=== PATIENT | male | born 1960 | race Caucasian/White ===

== ENCOUNTER 2017-01-03 10:59 | Inpatient (IN) ==
--- NOTE | 2017-01-03 11:29 | PROVIDER DOCUMENTATION ---
HPI-Neurological Disorder - General Source: family (Dr. Son spoke with sister via phone), EMS - History of Present Illness-Neuro Onset/Duration: reports: just prior to arrival Context: reports: found unresponsive by family Character of Altered Mental Status: reports: disoriented, confused Cognitive Baseline: alert but disoriented - Seizure First time to have a seizure?: No (Sister states he has seizure disorder) Witnessed seizure?: Yes Episode Frequency: other (unknown) <Nayeli Carter - Last Filed: 01/03/17 11:45> - General Source: patient, family, EMS notes reviewed Unable to obtain history due to:: altered - History of Present Illness-Neuro Onset/Duration: reports: unsure Timing: reports: gone now Context: reports: seizure activity Character of Altered Mental Status: reports: disoriented, confused, trouble concentrating Any recent trauma/injury?: reports: none New weakness or altered sensation location:: reports: none Cognitive Baseline: alert but confused Gait Baseline: walks without assistance Associated Symptoms: reports: short of breath (from COPD), loss of consciousness Similar Symptoms Previously?: Yes (twice in the last 3 months as per his sister. ) Recently seen or treated by another doctor?: No - Seizure First time to have a seizure?: No Witnessed seizure?: Yes Episode details: reports: unknown duration Episode Frequency: occasional episodes Status Epilepticus: No Preceding symptoms/context:: recent alcohol or drug use (???) Character of Seizure: reports: lost consciousness, generalized shaking all over Post-ictal Symptoms: reports: confusion, lost power/feeling, speech difficulty Seizure related injury: none <John Son - Last Filed: 01/03/17 15:25> - General Chief Complaint: Seizure Stated Complaint: possible seizure Time Seen by Provider: 01/03/17 11:08 Allergies/Adverse Reactions: Patient Allergies Allergy/AdvReac Type Severity Reaction Status Date / Time No Known Allergies Allergy Verified 01/03/17 11:25 Home Medications: Home Medication List Medication Instructions Recorded Confirmed Last Taken Type Albuterol Sulfate [Proair Hfa] 8.5 gm IH PRN PRN 01/03/17 01/03/17 Unknown History Paroxetine HCl [Paxil] 20 mg PO DAILY 01/03/17 01/03/17 Unknown History Tramadol HCl [Ultram] 50 mg PO TID PRN 01/03/17 01/03/17 Unknown History Umeclidinium/Vilanterol [Anoro 1 puff INH RTDAILY 01/03/17 01/03/17 Unknown History Ellipta 62.5-25 Mcg INH] - History of Present Illness-Neuro Nature of Presenting Problem: 56 yo male presents to the ER via EMS for possible seizure. Pt was seen by witnesses convulsing. Pt denies any past medical problems/history. Pt does not know where he lives but does know that he is in the hospital. (Nayeli Carter) 56 y/o M brought by EMS after he had a seizure episode at his home. [place] stated that he saw him convulsing and called the ambulance. Patient does not recall anything and is not quite alert. I called his sister who stated that he experienced a couple of seizure episodes before and the first one was 3 months ago. He never seen a doctor for it and also he is known to be non-compliant with his medication or PCP follow-ups. (John Son) Review of Systems - Adult - REVIEW OF SYSTEMS - ADULT Constitutional: denies: chills, fever Neurological: reports: seizure. denies: dizziness/vertigo <Nayeli Carter - Last Filed: 01/03/17 11:45> Past History - Adult - PAST MEDICAL HISTORY-ADULT Review of Records: reports: Nursing Assessment Review, Medications Reviewed Cardiovascular: reports: HTN Respiratory: reports: COPD Musculoskeletal: reports: other fractures (03/19/16 - 5th metacarpal, L rib fractures) Psychiatric: reports: depression, other (alcoholism) - PRIOR SURGERIES/PROCEDURES Surgical/Procedure History: reports: orthopedic (extremity), joint replacement - PRIOR HOSPITALIZATIONS Prior Hospitalizations: reports: for other non-related - IMMUNIZATION STATUS Childhood Immunizations: See Nurse Assessment Flu Vaccine: See Nurse Assessment <Nayeli Carter - Last Filed: 01/03/17 11:45> - PAST MEDICAL HISTORY-ADULT Major Childhood Illnesses: reports: denies history Cardiovascular: reports: denies history Respiratory: reports: COPD Gastrointestinal: reports: denies history Genitourinary: reports: denies history Musculoskeletal: reports: denies history Neurological: reports: denies history Psychiatric: reports: denies history Endocrine/Immune: reports: denies history <John Son - Last Filed: 01/03/17 15:25> Physical Exam- Neurological - Physical Exam-Neuro General Appearance: alert, no apparent distress, slow to respond Eye Exam: bilateral eye: PERRL, EOMI HENMT: normocephalic/atraumatic Head Injury: no evidence of injury Neck: supple Respiratory: lungs clear Cardiovascular: regular rate, rhythm Abdominal Exam: normal bowel sounds, soft 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 negative: facial asymmetry Coordination/Gait: other Motor/Sensory: no motor deficit, no sensory deficit Neurologic: grossly normal Integumentary: negative: cyanosis Psych/Mental Status: disoriented x 3 - Glascow Coma Scale Best Eye Response: (4) open spontaneously Best Verbal Response: (4) confused conversation Best Motor Response: (6) obeys commands <Nayeli Carter - Last Filed: 01/03/17 11:45> - Physical Exam-Neuro Initial Vital Signs Reviewed: Yes General Appearance: alert, moderate distress, slow to respond Eye Exam: bilateral eye: PERRL, EOMI HENMT: normocephalic/atraumatic Head Injury: no evidence of injury Neck: supple Respiratory: lungs clear Cardiovascular: normal peripheral pulses, regular rate, rhythm Abdominal Exam: normal bowel sounds, soft 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 Exam: negative: facial asymmetry Coordination/Gait: other Motor/Sensory: no motor deficit, no sensory deficit Neurologic: grossly normal Psych/Mental Status: disoriented x 3 - Glascow Coma Scale Best Eye Response: (4) open spontaneously Best Verbal Response: (4) confused conversation Best Motor Response: (6) obeys commands Total Glascow Score: 14 <John Son - Last Filed: 01/03/17 15:25> Departure <Nayeli Carter - Last Filed: 01/03/17 11:45> - Departure Time of Disposition Order: 15:20 Certified Medical Emergency: Emergent <John Son - Last Filed: 01/03/17 15:25> - Departure DIAGNOSIS: Seizure, Acute hyponatremia Disposition: ADMITTED INPATIENT 09 Condition: Fair Referrals: None,PCP [Primary Care Provider] - Attestation - Scribe Verification/Attestation Scribe:: Nayeli Carter Acting as Scribe for:: John Son Scribe documention review:: This chart was documented by a scribe and accurately reflects the service the provider performed and the decisions made by the provider. <Nayeli Carter - Last Filed: 01/03/17 11:45> Physician Attestation
[2017-01-03 12:10] LABS: MANUAL DIFF NEEDED? NO
[2017-01-03 12:31] LABS: AGAP 13; ALBUMIN 3.3 g/dL (3.5-5.0); ALKALINE PHOSPHATASE 172 U/L (32-122); BUN 6 mg/dL (8-22); CALCIUM 8.1 mg/dL (8.8-10.2); CHLORIDE 92 mmol/L (98-107); COSMO 260; GOT 106 U/L (10-34); GPT 42 U/L (10-44); MAGNESIUM 1.7 mg/dL (1.5-2.7); POTASSIUM 4.1 mmol/L (3.5-5.1); SODIUM 128 mmol/L (136-145); TCO2 23 mmol/L (25-35); TOTAL BILIRUBIN 1.82 mg/dL (0.20-1.00); TOTAL PROTEIN 8.1 g/dL (6.3-8.3)
[2017-01-03 12:46] LABS: BASO% 0.5 % (0.0-0.8); HEMATOCRIT 38.8 % (42.0-52.0); HEMOGLOBIN 13.5 g/dL (14.0-18.0); LYMPH# 0.56 X1000 (1.2-3.4); LYMPH% 7.4 % (20.5-51.1); MCH 34.4 PG (27-31); MCHC 34.8 g/dL (33-37); MONO% 15.8 % (1.7-9.3); MPV 10.5 FL (7.4-10.4); NEUT% 76.3 % (42.2-75.2); PLT 96 X1000 (130-400); RBC 3.92 XMIL (4.7-6.1)
[2017-01-03] MEDS ORDERED: NS 1,000 ML IV ONE (12:59)
[2017-01-03] MEDS ORDERED: ATIVAN IM ONE (13:00)
[2017-01-03 13:04] LABS: ACETAMINOPHEN < 1.2 ug/mL (10-30)
[2017-01-03 13:37] LABS: URINE CULTURE NEEDED? NO; URINE MICRO REVIEW NEEDED? NO; URINE SOURCE CLEAN CATCH
[2017-01-03 13:41] LABS: BILIRUBIN URINE NEGATIVE (NEGATIVE); BLOOD URINE NEGATIVE (NEGATIVE); COLOR YELLOW; GLUCOSE URINE NEGATIVE (NEGATIVE); LEUKOCYTES URINE NEGATIVE (NEGATIVE); NITRITE URINE NEGATIVE (NEGATIVE); PH URINE 7.5; PROTEIN URINE 30 mg/dL (NEGATIVE); SP GRAVITY URINE 1.019; TURBIDITY URINE CLEAR (CLEAR); UROBILINOGEN URINE 4 mg/dL (NORMAL)
[2017-01-03 13:42] LABS: UR EPITHELIAL CELLS <10 /HPF (<10); URINE BACTERIA NEGATIVE /HPF; URINE RBC <10 /HPF (<10); URINE WBC <10 /HPF (<10)
[2017-01-03 14:14] LABS: UR AMPHETAMINES QUAL NONE DETECTED (NONE DETECT); UR BARBITUATES QUAL NONE DETECTED (NONE DETECT); UR BENZODIAZEPIN QUAL NONE DETECTED (NONE DETECT); UR CANNABINOIDS QUAL PRESUMPTIVE POSITIVE (NONE DETECT); UR COCAINE QUAL NONE DETECTED (NONE DETECT); UR METHADONE QUAL NONE DETECTED (NONE DETECT); UR OPIATES QUAL NONE DETECTED (NONE DETECT); UR OXYCODONE QUAL NONE DETECTED (NONE DETECT); UR PCP QUAL NONE DETECTED (NONE DETECT)
[2017-01-03] MEDS ORDERED: ZOFRAN IV PRN (16:37)
[2017-01-03] MEDS ORDERED: SOLU-MEDROL ONE (16:56)
[2017-01-03] MEDS ORDERED: PROTONIX ONE (16:59)
[2017-01-03] MEDS ORDERED: SODIUM PHOSPHATE 40 MMOL in NS 250 ML IV ONE (17:08)
[2017-01-03] MEDS: SOLU-MEDROL IV SCH (17:16)
[2017-01-03] MEDS: LIBRIUM PO SCH (17:16)
[2017-01-03] MEDS: PROTONIX IV SCH (17:17)
[2017-01-03] MEDS: NS 1,000 ML IV SCH (17:17)
--- NOTE | 2017-01-03 17:22 | HISTORY AND PHYSICAL ---
PRIMARY CARE PROVIDER: Farzana Martinez. CHIEF COMPLAINT: Seizures. HISTORY OF PRESENT ILLNESS: Mr. Reymundo Mueller is a 56-year-old ill-appearing male. He is in no acute distress but has a past medical history of COPD, seizure disorder, hypertension, noncompliance and alcohol abuse. Apparently he lives with a roommate and his roommate was awoken by the dog and Mr. Mueller was found seizing and unresponsive 911 called and he was brought to ER. Head CT has been performed and is apparently negative. Laboratory data electrolyte bautista sodium was 128, magnesium 1.7, elevated total bilirubin at 1.82, urine drug screen was positive for cannabinoids but negative for alcohol. Patient states his last time he drank was about 2 days ago. He normally drinks about 4 beers per day. Other complaints he states that he has been having hot, cold flashes, shortness of breath, chest pains and coughing up green phlegm although his white blood cell count was normal at 6000 and he is afebrile. When asked if he remembered what happened he states that he did not, he said everything went blank and then he woke up here. Currently all of his vital signs are stable but there is some auditory crackles which is suggestive of aspiration so he is at high risk for aspiration pneumonia given his history of COPD also will admit to [facility] for monitoring of seizures and risk of respiratory failure given he has likely had aspiration with COPD. PAST MEDICAL HISTORY: COPD, seizure disorder, hypertension. SURGICAL HISTORY: Bilateral knee surgery and ribs repaired but states that he has had several surgeries he just cannot remember them. SOCIAL HISTORY: States he quit smoking a year ago, drinks daily and drinks 4 beers daily with the last being 2-3 days. Denies illicit drug use but is positive for cannabinoids. Lives with a friend. Is disabled. FAMILY HISTORY: Noncontributory. ALLERGIES: No known drug allergies. HOME MEDICATIONS: Albuterol sulfate inhaled as needed, Ultram 50 mg p.o. t.i.d. p.r.n., Anoro Ellipta inhaler daily, Paxil 20 mg p.o. daily. REVIEW OF SYSTEMS: Fourteen point review of systems were complete and all were negative except for those mentioned above HPI. LABORATORY DATA: White blood cells 7000, hemoglobin 13, hematocrit 38, platelet count 96,000. Sodium 128, potassium 4.1, BUN 6, creatinine 0.6, glucose 188, calcium 8.1, magnesium 1.7, total bilirubin is 1.82, AST 106, ALT 42, albumin 3.3. Urinalysis 30 protein, trace ketones, 4 urobilinogen otherwise negative. Urine drug screen less than 3 salicylates, less than 1.2 on acetaminophen, positive cannabinoids and 0 alcohol. IMAGING: Chest x-ray has not been fully resulted but upon viewing does not appear to have any signs of infiltrates or effusion. Will follow up with full report. CT of the head on preliminary report stable brain is the preliminary. There has been an order for a CT of the thorax without contrast which has not been performed yet to follow up for aspiration pneumonia. PHYSICAL EXAMINATION: VITAL SIGNS: Temperature is 98.0 degrees, heart rate 91, respiratory rate 18, blood pressure 139/89, O2 saturation 97% on 2 L, 5 feet 11 inches tall, 155 pounds, BMI 21.6. GENERAL: Mr. Mueller is a 56-year-old ill-appearing much older than his stated age male who is unkept. He is in no acute distress but has audible crackles and is able to answer most questions appropriately at this point, no signs of significant postictal. HEENT: Atraumatic, normocephalic. Pupils are equal and reactive. Extraocular movements were intact. Mucous membranes are dry. NECK: No JVD or carotid bruits noted. CARDIOVASCULAR: S1, S2. Regular rate and rhythm. No rubs, gallops, murmurs. PULMONARY: Crackles throughout anterior posteriorly and audibly without stethoscope currently on 2 L nasal cannula. No signs of work of breathing or accessory muscle use this time. GI: Soft, nontender, nondistended. Positive bowel sounds x4. EXTREMITIES: No edema noted, +2 dorsalis and radial pulses. NEURO: He is oriented x3. Followed commands. Moves all extremities. No signs of significant postictal at this time. SKIN: Warm, dry, intact. ASSESSMENT AND PLAN: 1. Seizure disorder with last seizure he stated was a year ago was found having convulsions by his roommate and was unresponsive. He received Ativan here, intravenous fluid hydration. Sodium levels mildly low so will do normal saline IV fluids. Will do seizure precautions, send him to [facility]. 2. Chronic obstructive pulmonary disease with mild exacerbation. Do respiratory treatments and IV steroids and pulmonary toilet. 3. High-risk aspiration pneumonia. He has audible crackles without the stethoscope and crackles throughout lungs anterior posteriorly currently on 2 L. No accessory muscle use or work of breathing at this time so will go ahead and start IV Zosyn prophylactically and follow up with a chest CT. He has had complaints of chills, hot flashes and green phlegm that he has been coughing up although white blood cell count is normal. 4. Remote tobacco abuse. 5. Alcohol abuse. Will monitor for DTs, Librium 50 mg p.o. t.i.d., Ativan 1 mg q.2 hours p.r.n. which will also help with seizure risk and thymine q.24 hours. 6. Hyperbilirubinemia with transaminitis could be secondary to dehydration and alcohol abuse. If it is chronic will not improve with intravenous fluid hydration but past lab showed that they were normal in 2016 so should improve with intravenous fluid hydration. 7. Deep venous thrombosis prophylaxis. SCDs. 8. Gastrointestinal prophylaxis. Proton pump inhibitor. Dictated by WADE Nunes for Rxe Hess MD
[2017-01-03] MEDS: THIAMINE 100 MG in NS 50 ML IV SCH (17:58)
[2017-01-03] MEDS ORDERED: DUONEB (A & A) ONE (18:57)
[2017-01-03] MEDS: DUONEB (A & A) INH SCH ×2 (19:00→23:19)
--- NOTE | 2017-01-03 20:36 | Diag Imaging Result Document ---
PROCEDURE NAME: HEAD W/O CONTRAST - 01/03/2017 CT HEAD WITHOUT CONTRAST: COMPARISON: 06/19/2014. FINDINGS: There is stable diffuse brain atrophy. There is no discrete intracranial mass, mass effect, or intracranial hemorrhage. There is no evidence of acute infarct given the limited sensitivity of CT versus MRI. Surrounding soft tissues and bony structures are essentially unremarkable. IMPRESSION: Stable atrophy but no evidence of acute intracranial pathology.
[2017-01-03] MEDS ORDERED: FLUZONE QUAD 2016-2017 SYRINGE IM ONE (21:13)
--- NOTE | 2017-01-03 21:15 | Diag Imaging Result Document ---
PROCEDURE NAME: CHEST-2 VIEWS - 01/03/2017 SEATED AP AND LATERAL RADIOGRAPH OF THE CHEST: COMPARISON: 06/04/2016. FINDINGS: Lungs appear hyperinflated, stable. There are stable linear fibrotic changes at the lower lung zones bilaterally. No new consolidations are appreciated. There is no definite pleural fluid collection. There are several healed rib fractures bilaterally. Cardiac silhouette is essentially unremarkable. IMPRESSION: Stable COPD and fibrotic changes. No definite acute pathology by plain radiograph.
[2017-01-03] MEDS ORDERED: PNEUMOVAX 23 IM ONE (22:13)
[2017-01-03] MEDS: MORPHINE IV PRN (23:32)
[2017-01-04] MEDS: SOLU-MEDROL IV SCH ×2 (03:43→16:05)
[2017-01-04] MEDS: NS 1,000 ML IV SCH ×6 (03:44→20:30)
[2017-01-04] MEDS: DUONEB (A & A) INH SCH ×6 (03:50→23:09)
[2017-01-04 05:35] LABS: MANUAL DIFF NEEDED? NO
[2017-01-04 05:43] LABS: BASO% 0.4 % (0.0-0.8); HEMOGLOBIN 12.3 g/dL (14.0-18.0); LYMPH# 1.03 X1000 (1.2-3.4); LYMPH% 20.2 % (20.5-51.1); MCH 33.7 PG (27-31); MCHC 33.2 g/dL (33-37); MCV 101.4 FL (81-99); MONO% 15.7 % (1.7-9.3); MPV 10.9 FL (7.4-10.4); NEUT% 63.7 % (42.2-75.2); PLT 78 X1000 (130-400); RBC 3.65 XMIL (4.7-6.1)
[2017-01-04 05:54] LABS: AGAP 13; ALKALINE PHOSPHATASE 148 U/L (32-122); BUN 8 mg/dL (8-22); CALCIUM 7.9 mg/dL (8.8-10.2); CHLORIDE 99 mmol/L (98-107); COSMO 269; GOT 76 U/L (10-34); GPT 34 U/L (10-44); MAGNESIUM 1.9 mg/dL (1.5-2.7); POTASSIUM 3.5 mmol/L (3.5-5.1); SODIUM 135 mmol/L (136-145); TCO2 23 mmol/L (25-35); TOTAL BILIRUBIN 1.96 mg/dL (0.20-1.00); TOTAL PROTEIN 7.3 g/dL (6.3-8.3)
[2017-01-04] MEDS: ANORO ELLIPTA 62.5-25 MCG INH INH SCH (07:43)
[2017-01-04] MEDS: LIBRIUM PO SCH ×3 (08:37→16:05)
[2017-01-04] MEDS: PAXIL PO SCH (08:37)
[2017-01-04] MEDS: ZOSYN 3.375 GM/NS 50 ML IV SCH ×3 (09:36→20:29)
[2017-01-04] MEDS: ATIVAN IV PRN ×3 (09:36→23:16)
[2017-01-04] MEDS ORDERED: LACTULOSE PO ONE (11:40)
--- NOTE | 2017-01-04 11:42 | Diag Imaging Result Document ---
PROCEDURE NAME: US ABDOMEN-COMPLETE - 01/04/2017 COMPLETE ABDOMINAL ULTRASOUND: COMPARISON: None available. FINDINGS: The gallbladder appears grossly normal with no stones, wall thickening, or pericholecystic fluid. The common bile duct is normal in diameter. The liver is prominent and is diffusely echogenic indicating hepatic steatosis. No well-defined hepatic mass is identified. Portal venous flow is hepatopetal. The pancreas is obscured by bowel gas. There are a few shadowing echogenic foci in the spleen suggesting splenic granulomata. The spleen is unremarkable, otherwise. The aorta and IVC are obscured by bowel gas. The kidneys are grossly unremarkable. IMPRESSION: Prominent liver with findings suggestive of hepatic steatosis.
--- NOTE | 2017-01-04 11:52 | Diag Imaging Result Document ---
PROCEDURE NAME: CT THORAX W/O CONTRAST - 01/04/2017 CT CHEST WITHOUT CONTRAST: COMPARISON: None available. FINDINGS: There is suggestion of mild bronchial mucosal thickening bilaterally which could indicate bronchitis. There is also mild patchy and somewhat nodular ground- glass opacity adjacent to the bronchi seen throughout the lungs bilaterally. This indicates mild adjacent airspace consolidation which would be consistent with mild patchy pneumonia/pneumonitis. These opacities appear to be centered around bronchi that are at least somewhat ectatic. There is more significant bronchiectasis at the lung bases, especially on the left. The most extensive infiltrate is also at the left lung base. However, there also is likely a component of atelectasis and scarring. No pleural fluid collection or pneumothorax is identified. There are several calcified granulomata in the right lung. There is an 8.3-mm noncalcified nodule in the left lower lobe on image 89 of series 3. It is possible that this actually represents a mildly ectatic mucus-filled bronchus. Consider followup based on Carlotta Society criteria. The heart does not appear to be enlarged. There are a few coronary artery calcifications and there is at least moderate thoracic aortic calcification. There is no evidence of aortic aneurysm. There are calcified right hilar lymph nodes indicating prior granulomatous disease. No significant lymphadenopathy is appreciated, otherwise. Limited views of the upper abdomen reveal a prominent liver with fatty infiltration. There are few calcified granulomata in the spleen and there appear to be a few metallic surgical clips associated with the spleen. There are few old healed rib fractures on the left. There are mild anterior wedge deformities involving a few of the mid and lower thoracic levels of unknown acuity but probably chronic. Bony structures are grossly intact, otherwise. IMPRESSION: 1. Patchy bronchiectasis with mild bronchial mucosal thickening suggesting bronchitis. 2. Patchy ground-glass opacity throughout both lungs that appears to be largely associated with clusters of mildly ectatic bronchi indicating adjacent mild pneumonitis/ pneumonia. 3. An 8.3-mm left lower lobe noncalcified nodule that is nonspecific but probably either represents a noncalcified granuloma or perhaps a mildly ectatic bronchus containing mucoid debris. If warranted, consider followup based on Carlotta sided criteria. 4. Prominent fatty liver. 5. Other incidental/nonacute findings detailed above. [facility]
--- NOTE | 2017-01-04 13:15 | PROGRESS NOTE ---
DATE: 01/04/2017 SUBJECTIVE: Mr. Mueller is much more alert. He states his breathing feels a little bit better, but complains that he has not had a bowel movement and his abdomen is round, distended, and semifirm but does have positive bowel sounds. Will order lactulose for that given his elevated liver enzymes. We will monitor for one more night. He has had no more seizure episodes since admission. We will continue with DT medications. OBJECTIVE: Vital Signs: Temperature is 98.4 degrees, heart rate 90, respiratory rate 12, blood pressure 141/87, O2 saturation 98% on 2 L nasal cannula. General: Mr. Mueller is a 56-year-old ill-appearing, male. He is in no acute distress. He is able to answer all questions appropriately. He does have some tremors that I have noticed. Cardiovascular: S1, S2. Regular rate and rhythm. No rubs, gallops, murmurs. Pulmonary: Coarse with rhonchi throughout. Currently on 2 L nasal cannula. No accessory muscle use or work of breathing noted. GI: Round, distended. Positive bowel sounds, semifirm. Extremities: No edema noted. +2 dorsalis and radial pulses. Neurologic: A and O x4. Moves all extremities equally with fine tremors in the extremities. Skin warm, dry, intact. LABORATORY DATA: White blood cells 5000, hemoglobin 12, hematocrit 37, platelet count 78,000. Sodium 135, potassium 3.5. BUN 8, creatinine 0.6, glucose 100. Calcium 2.9, phosphorus 2.8. Magnesium 1.9. Total bilirubin is 1.9. Direct bilirubin 0.9. AST 76, ALT 38, alkaline phosphatase 148. Troponin was less than 0.01. Albumin 3.0. IMAGING: Chest CT pending and abdominal ultrasound pending. Abdominal ultrasound results: Prominent liver with findings suggestive of hepatic steatosis. ASSESSMENT AND PLAN: 1. Seizure disorder and was admitted with a seizure. He has p.r.n. Ativan and IV fluid hydration. Sodium levels are back to normal. Magnesium levels are normal. Continue his seizure precautions. 2. Alcohol abuse. Continue with Librium p.o. t.i.d. and Ativan 1 mg every 2 hours for risk of seizure and continue thiamin. He is starting to have some tremors, so continue to monitor for DTs. 3. Chronic obstructive pulmonary disease with exacerbation. Continue with respiratory treatments, IV steroids, and pulmonary toilet. 4. High-risk aspiration pneumonia. We will follow up with chest CT and continue IV Zosyn. On 2 L nasal cannula. 5. Remote tobacco abuse. 6. Hyperbilirubinemia with transaminitis. Abdominal ultrasound showed a prominent liver and hepatic steatosis. Continue IV fluid hydration. 7. Constipation. Abdomen is distended, semifirm, positive bowel sounds. Will do lactulose p.o. twice daily given his upper bilirubinemia and transaminitis. 8. Deep venous thrombosis prophylaxis. Sequential compression devices. 9. Gastrointestinal prophylaxis. Proton pump inhibitor. 10. Thrombocytopenia could be secondary to liver disorder. We will continue to trend. Dictated by WADE Nunes for Rex Hess MD
[2017-01-04] MEDS: MORPHINE IV PRN (15:46)
[2017-01-04] MEDS: SODIUM CHLORIDE 0.9% INJ SCH (16:05)
[2017-01-04] MEDS: PROTONIX IV SCH (16:05)
[2017-01-04] MEDS: THIAMINE 100 MG in NS 50 ML IV SCH (16:05)
[2017-01-04] MEDS: LACTULOSE PO SCH (20:29)
[2017-01-05] MEDS: NS 1,000 ML IV SCH ×2 (02:09→09:29)
[2017-01-05] MEDS: ZOSYN 3.375 GM/NS 50 ML IV SCH ×4 (02:23→20:40)
[2017-01-05] MEDS: ATIVAN IV PRN ×4 (05:09→20:48)
[2017-01-05] MEDS: SOLU-MEDROL IV SCH ×3 (05:09→17:35)
[2017-01-05 05:23] LABS: MANUAL DIFF NEEDED? NO
[2017-01-05] MEDS: DUONEB (A & A) INH SCH ×6 (05:26→22:48)
[2017-01-05 05:49] LABS: AGAP 15; ALBUMIN 2.8 g/dL (3.5-5.0); ALKALINE PHOSPHATASE 166 U/L (32-122); BUN 7 mg/dL (8-22); CALCIUM 7.7 mg/dL (8.8-10.2); CHLORIDE 103 mmol/L (98-107); COSMO 278; GOT 72 U/L (10-34); GPT 37 U/L (10-44); IRON SATURATION 46 %; MAGNESIUM 1.9 mg/dL (1.5-2.7); POTASSIUM 3.6 mmol/L (3.5-5.1); SODIUM 140 mmol/L (136-145); TCO2 22 mmol/L (25-35); TIBC 247 ug/dL; TOTAL BILIRUBIN 1.81 mg/dL (0.20-1.00); TOTAL IRON 113 ug/dL (53-167); TOTAL PROTEIN 6.9 g/dL (6.3-8.3); UNBOUND IRON 134 ug/dL (112-346)
[2017-01-05 05:54] LABS: BASO% 0.4 % (0.0-0.8); HEMATOCRIT 37.1 % (42.0-52.0); HEMOGLOBIN 12.3 g/dL (14.0-18.0); LYMPH% 26.8 % (20.5-51.1); MCH 33.9 PG (27-31); MCHC 33.2 g/dL (33-37); MCV 102.2 FL (81-99); MONO# 0.75 X1000 (0.11-0.59); MONO% 13.4 % (1.7-9.3); MPV 10.5 FL (7.4-10.4); NEUT% 59.4 % (42.2-75.2); PLT 96 X1000 (130-400); RBC 3.63 XMIL (4.7-6.1)
[2017-01-05 06:04] LABS: FERRITIN 275 ng/mL (30-400)
[2017-01-05] MEDS: ANORO ELLIPTA 62.5-25 MCG INH INH SCH (07:32)
[2017-01-05] MEDS: PAXIL PO SCH (08:08)
[2017-01-05] MEDS: LIBRIUM PO SCH ×3 (08:08→20:40)
[2017-01-05] MEDS ORDERED: SODIUM PHOSPHATE 35 MMOL in NS 250 ML IV ONE (09:00)
[2017-01-05] MEDS: LACTULOSE PO SCH ×2 (09:28→20:40)
[2017-01-05] MEDS ORDERED: LASIX IV ONE (09:35)
--- NOTE | 2017-01-05 11:41 | PROGRESS NOTE ---
DATE: 01/05/2017 SUBJECTIVE: Patient is definitely more alert in comparing with admission but still a little bit confused. OBJECTIVE: Vital Signs: Temperature 97.4 degrees, heart rate 95, respiratory rate 21, blood pressure 151/89, O2 saturation 98% on 2 L nasal cannula. General Examination: This is a 56-year- old, chronically ill-looking, very disheveled male, lying in bed, in no acute distress. HEENT: Head is normocephalic, atraumatic. Anicteric sclerae. Pale conjunctivae. Mucous membranes moist. Neck: Supple. No JVD noted. No carotid bruits. No lymphadenopathy. No thyromegaly. Cor: S1, S2 heard. No murmurs, gallops, or rubs. Regular rate and rhythm. Respiratory: Coarse breath sounds and rhonchi at both pulmonary luo, mostly in both bases. Patient is not using any accessory muscles or having work of breathing. Abdomen: Soft. Nontender to palpation. Bowel sounds present. No organomegaly. Extremities: No clubbing, cyanosis, or edema. Peripheral pulses present in both legs. Neurological: The patient is confused. Thinks that he is [place] but is not sure if he is in the hospital or not. Moves 4 extremities. LABORATORY DATA: White cell count 5.59, hemoglobin 12.3, hematocrit 37.1, platelets 96,000. BMP is normal. ASSESSMENT AND PLAN: 1. Seizure disorder. No more episodes of seizures since admission. He is on IV fluids and Ativan p.r.n. Sodium and magnesium are back to normal. We will continue with seizure precautions. 2. Alcohol abuse. Patient is on Librium and Ativan p.r.n. We will continue with the same management. 3. Chronic obstructive pulmonary disease. We will continue with breathing treatments, IV steroids, and pulmonary toilette. 4. Possible aspiration pneumonia. We will continue with IV Zosyn. 5. Recent tobacco abuse. Aware. 6. Hyperbilirubinemia. That condition is improved. 7. Constipation. We will continue with lactulose. That can help not only with constipation but also for possible hepatic encephalopathy that he may have. 8. Deep vein thrombosis prophylaxis with SCDs. 9. Thrombocytopenia related to alcohol consumption. Stable.
[2017-01-05] MEDS: SODIUM CHLORIDE 0.9% INJ SCH (15:17)
[2017-01-05] MEDS: PROTONIX IV SCH ×2 (15:17→17:35)
[2017-01-05] MEDS: THIAMINE 100 MG in NS 50 ML IV SCH (17:35)
[2017-01-06] MEDS: ATIVAN IV PRN ×2 (01:22→13:53)
[2017-01-06] MEDS: DUONEB (A & A) INH SCH ×6 (03:57→22:59)
[2017-01-06] MEDS: ZOSYN 3.375 GM/NS 50 ML IV SCH ×4 (04:02→22:30)
[2017-01-06] MEDS: SOLU-MEDROL IV SCH ×2 (04:03→18:42)
[2017-01-06] MEDS: MORPHINE IV PRN ×4 (04:03→22:40)
[2017-01-06 05:23] LABS: MANUAL DIFF NEEDED? NO
[2017-01-06 05:29] LABS: BASO% 0.3 % (0.0-0.8); EOS# 0.01 X1000 (0.0-0.7); EOS% 0.2 % (0.0-10.0); HEMATOCRIT 36.4 % (42.0-52.0); HEMOGLOBIN 12.1 g/dL (14.0-18.0); LYMPH# 1.48 X1000 (1.2-3.4); LYMPH% 23.8 % (20.5-51.1); MCH 34.2 PG (27-31); MCHC 33.2 g/dL (33-37); MCV 102.8 FL (81-99); MONO# 0.81 X1000 (0.11-0.59); MPV 10.2 FL (7.4-10.4); NEUT% 62.7 % (42.2-75.2); PLT 124 X1000 (130-400); RBC 3.54 XMIL (4.7-6.1)
[2017-01-06 05:50] LABS: AGAP 14; ALBUMIN 3.1 g/dL (3.5-5.0); ALKALINE PHOSPHATASE 149 U/L (32-122); BUN 14 mg/dL (8-22); CALCIUM 8.4 mg/dL (8.8-10.2); CHLORIDE 100 mmol/L (98-107); COSMO 283; GOT 76 U/L (10-34); GPT 44 U/L (10-44); MAGNESIUM 1.8 mg/dL (1.5-2.7); POTASSIUM 2.9 mmol/L (3.5-5.1); SODIUM 140 mmol/L (136-145); TCO2 26 mmol/L (25-35); TOTAL BILIRUBIN 1.44 mg/dL (0.20-1.00); TOTAL PROTEIN 7.5 g/dL (6.3-8.3)
[2017-01-06] MEDS ORDERED: KLOR-CON PO ONE (07:54)
[2017-01-06] MEDS: LIBRIUM PO SCH ×3 (08:52→22:31)
[2017-01-06] MEDS: LACTULOSE PO SCH ×2 (08:52→22:31)
[2017-01-06] MEDS: PAXIL PO SCH (08:52)
[2017-01-06] MEDS: ANORO ELLIPTA 62.5-25 MCG INH INH SCH (11:11)
[2017-01-06] MEDS: NS 1,000 ML IV SCH (14:20)
--- NOTE | 2017-01-06 14:37 | Diag Imaging Result Document ---
PROCEDURE NAME: CHEST-PORTABLE - 01/06/2017 AP PORTABLE CHEST: 01/06/2017 at 13:35 hours. FINDINGS: There are chronic bony and pleural changes particularly on the left side. There is no evidence of acute cardiac or pulmonary disease, and compared to 01/03/2017, there has been no appreciable change. IMPRESSION: No evidence of acute disease.
--- NOTE | 2017-01-06 16:53 | PROGRESS NOTE ---
DATE: 01/06/2017 SUBJECTIVE: This patient is a little bit agitated. He is alert and oriented x3. He has been physically restrained because every time he is not with restraints he tried to walk out the room and probably he wants to leave the hospital. He denies nausea, vomiting, diarrhea, or constipation. No fever. No chills. Vital Signs: Temperature 98.1 degrees, pulse 95, respiratory rate 15, blood pressure 143/83. O2 saturation 90 on 2 L of nasal cannula. HEENT: Head normocephalic. No trauma. PERRLA. Neck: Supple. No JVD. No masses. Central trachea. Cardiovascular: RRR. No murmurs. Chest: Bilateral generalized rhonchi and crackles. Abdomen: Soft, nontender, nondistended. No hepatosplenomegaly. Extremities: No edema. No clubbing. No cyanosis. Neurological examination: The patient is anxious. The patient is a little bit agitated. He has been following commands. He moves all 4 extremities. He is alert and he is oriented x3. He knows that he is in the hospital but he does not know that he was in [facility]. LABORATORY: WBC 6.2, hemoglobin 12.1, MCV 102.8, platelets 124,000. Sodium 140, potassium 2.9, chloride 100, bicarbonate 26, BUN 14, creatinine 0.6. Glucose 146. Calcium 8.4. Phosphorus 2.6. Magnesium 1.8. Albumin 3.1. ASSESSMENT AND PLAN: 1. Seizure disorder the day of admission. Apparently he said the last seizure was 1 year ago and he was found by his roommate unresponsive. I think that he is confused about this episode of seizure. He has been getting here Ativan p.r.n. and morphine p.r.n., we will continue to monitor. 2. Chronic obstructive pulmonary disease with mild exacerbation. I will continue with IV steroids and pulmonary toilet. Also I will continue with respiratory treatment. 3. Hypokalemia. I will replace the potassium today. 4. Hyperglycemia. I will ask for a hemoglobin A1c to rule out diabetes. 5. Macrocytic anemia. His B12 is normal and his folate is within the normal range but borderline low. I will start this patient on folate. Probably this anemia is related with chronic alcohol abuse. 6. Possible pneumonia. I will continue with antibiotics. This patient is getting Zosyn. He has been complaining before the admission about chills and green phlegm, even though the white blood cells normal. 7. Alcohol abuse. This patient has been monitored for delirium tremens. He is getting Librium 50 mg p.o. t.i.d. and he is getting also Ativan q.2 hours p.r.n. This patient has been on thiamine as well. 8. Hyperbilirubinemia and transaminitis likely secondary to alcohol abuse and alcoholic hepatitis, probably this patient also has been dehydrated. I put this patient today on IV fluids and I will monitor. 9. DVT prophylaxis. He has been on SCDs. 10. GI prophylaxis. Continue with PPIs.
[2017-01-06] MEDS: SODIUM CHLORIDE 0.9% INJ SCH (18:35)
[2017-01-06] MEDS: THIAMINE 100 MG in NS 50 ML IV SCH (18:35)
[2017-01-06] MEDS: PROTONIX IV SCH (18:35)
[2017-01-06 22:13] LABS: URINE CULTURE NEEDED? NO; URINE MICRO REVIEW NEEDED? NO; URINE SOURCE CATH
[2017-01-06 22:18] LABS: BILIRUBIN URINE NEGATIVE (NEGATIVE); BLOOD URINE MODERATE (NEGATIVE); COLOR YELLOW; GLUCOSE URINE NEGATIVE (NEGATIVE); LEUKOCYTES URINE NEGATIVE (NEGATIVE); NITRITE URINE NEGATIVE (NEGATIVE); PH URINE 6.5; PROTEIN URINE TRACE mg/dL (NEGATIVE); SP GRAVITY URINE 1.024; TURBIDITY URINE CLEAR (CLEAR); UR EPITHELIAL CELLS <10 /HPF (<10); URINE BACTERIA NEGATIVE /HPF; URINE RBC <10 /HPF (<10); URINE WBC <10 /HPF (<10); UROBILINOGEN URINE 4 mg/dL (NORMAL)
[2017-01-07] MEDS: ZOSYN 3.375 GM/NS 50 ML IV SCH ×4 (02:41→20:57)
[2017-01-07] MEDS: DUONEB (A & A) INH SCH ×6 (03:27→23:38)
[2017-01-07] MEDS: NS 1,000 ML IV SCH (03:28)
[2017-01-07] MEDS: SOLU-MEDROL IV SCH ×2 (04:14→16:13)
[2017-01-07] MEDS: MORPHINE IV PRN ×4 (06:27→20:57)
[2017-01-07 06:47] LABS: MANUAL DIFF NEEDED? NO
[2017-01-07] MEDS: ATIVAN IV PRN (06:51)
[2017-01-07 07:02] LABS: BASO% 0.2 % (0.0-0.8); HEMATOCRIT 35.9 % (42.0-52.0); HEMOGLOBIN 11.8 g/dL (14.0-18.0); LYMPH# 0.64 X1000 (1.2-3.4); LYMPH% 12.8 % (20.5-51.1); MCH 34.2 PG (27-31); MCHC 32.9 g/dL (33-37); MCV 104.1 FL (81-99); MONO# 0.43 X1000 (0.11-0.59); MONO% 8.6 % (1.7-9.3); MPV 10.2 FL (7.4-10.4); NEUT% 78.4 % (42.2-75.2); PLT 125 X1000 (130-400); RBC 3.45 XMIL (4.7-6.1)
[2017-01-07 07:32] LABS: AGAP 12; ALBUMIN 2.9 g/dL (3.5-5.0); ALKALINE PHOSPHATASE 133 U/L (32-122); BUN 10 mg/dL (8-22); CALCIUM 8.2 mg/dL (8.8-10.2); CHLORIDE 99 mmol/L (98-107); COSMO 278; GOT 91 U/L (10-34); GPT 57 U/L (10-44); MAGNESIUM 1.8 mg/dL (1.5-2.7); SODIUM 138 mmol/L (136-145); TCO2 27 mmol/L (25-35); TOTAL BILIRUBIN 1.07 mg/dL (0.20-1.00)
[2017-01-07] MEDS ORDERED: KLOR-CON PO ONE (08:02)
[2017-01-07] MEDS: ANORO ELLIPTA 62.5-25 MCG INH INH SCH (08:09)
[2017-01-07] MEDS: PAXIL PO SCH (08:35)
[2017-01-07] MEDS: LACTULOSE PO SCH ×2 (08:36→22:38)
[2017-01-07] MEDS: FOLIC ACID PO SCH (08:36)
[2017-01-07] MEDS: LIBRIUM PO SCH ×3 (08:38→20:57)
--- NOTE | 2017-01-07 16:00 | PROGRESS NOTE ---
DATE: 01/07/2017 SUBJECTIVE: This patient looks a little bit better compared with yesterday. He is not agitated today. He is alert and oriented x3. As per the nurse, he has been taking his food without any problem swallowing. He is still having shortness of breath but compared with yesterday and the day of admission he looks better. OBJECTIVE: Vital Signs: Temperature 98.1 degrees, pulse 100, respiratory rate 19, blood pressure 116/83, O2 saturation 95% on 2 L of nasal cannula. HEENT: Head normocephalic. No trauma. PERRLA. Neck: Supple. No JVD. No masses. Central trachea. Cardiovascular: RRR. No murmurs. Chest: Bilateral generalized rhonchi and crackles. Abdomen: Soft, nontender, nondistended. No hepatosplenomegaly. Extremities: No edema. No clubbing. No cyanosis. Neurological: The patient is alert. He does not look anxious today. He is following commands. He moves all 4 extremities. LABORATORY: WBC 5, hemoglobin 11.8, hematocrit 35.9, platelets 125,000. Sodium 138, potassium 3, chloride 99, bicarbonate 27, BUN 10, creatinine 0.6. Glucose 149. Calcium 8.2, magnesium 1.8. Albumin 2.9. Total bilirubin 1.07. AST 91, ALT 57, alkaline phosphatase 133. ASSESSMENT AND PLAN: 1. Seizure disorder and that happened the date of admission. He has been getting here Ativan p.r.n. and morphine p.r.n. We will continue to monitor. No more seizure activity for now. 2. Chronic obstructive pulmonary disease exacerbation. We will continue with IV steroids and pulmonary toilet. Also, I will continue with respiratory treatment. 3. Hypokalemia. I will replace the potassium today. 4. Hyperglycemia. I asked for a hemoglobin A1c yesterday and today it is 5. 5. Macrocytic anemia. His B12 is normal and his folate is borderline low. I started this patient already on folate. His anemia is likely related to chronic alcohol abuse. 6. Possible pneumonia. I will continue with antibiotics. This patient is getting Zosyn. He has been complaining before the admission about chills and green phlegm even though his white blood cells are normal. 7. Alcohol abuse. This patient has been monitored for delirium tremens/alcohol withdrawal. He is getting Librium 50 mg p.o. t.i.d. and also Ativan q.2 hours p.r.n., I will continue with thiamine. 8. Hyperbilirubinemia and transaminitis likely secondary to alcohol abuse and/or alcoholic hepatitis. 9. DVT prophylaxis. He has been on SCDs and GI prophylaxis. Continue with PPIs.
[2017-01-07] MEDS: THIAMINE 100 MG in NS 50 ML IV SCH (16:13)
[2017-01-07] MEDS: PROTONIX IV SCH (16:13)
[2017-01-07] MEDS: SODIUM CHLORIDE 0.9% INJ SCH (16:13)
[2017-01-08] MEDS: MORPHINE IV PRN ×4 (02:08→19:14)
[2017-01-08] MEDS: ZOSYN 3.375 GM/NS 50 ML IV SCH ×4 (02:38→20:38)
[2017-01-08] MEDS: DUONEB (A & A) INH SCH ×6 (03:18→23:03)
[2017-01-08] MEDS: ATIVAN IV PRN (04:01)
[2017-01-08] MEDS: SOLU-MEDROL IV SCH ×2 (04:52→16:11)
[2017-01-08 07:17] LABS: BASO% 0.1 % (0.0-0.8); EOS# 0.01 X1000 (0.0-0.7); EOS% 0.1 % (0.0-10.0); HEMATOCRIT 38.7 % (42.0-52.0); HEMOGLOBIN 12.8 g/dL (14.0-18.0); LYMPH# 0.96 X1000 (1.2-3.4); LYMPH% 13.2 % (20.5-51.1); MANUAL DIFF NEEDED? YES; MCH 35.1 PG (27-31); MCHC 33.1 g/dL (33-37); MONO# 1.07 X1000 (0.11-0.59); MONO% 14.7 % (1.7-9.3); MPV 9.8 FL (7.4-10.4); NEUT% 71.9 % (42.2-75.2); PLT 151 X1000 (130-400); RBC 3.65 XMIL (4.7-6.1)
[2017-01-08 07:32] LABS: AGAP 12; BUN 13 mg/dL (8-22); CALCIUM 8.9 mg/dL (8.8-10.2); CHLORIDE 100 mmol/L (98-107); COSMO 281; SODIUM 139 mmol/L (136-145); TCO2 27 mmol/L (25-35)
--- NOTE | 2017-01-08 07:36 | Diag Imaging Result Document ---
PROCEDURE NAME: CHEST-1 VIEW - 01/08/2017 AP PORTABLE CHEST AT 0550 HOURS: FINDINGS: There are old posttraumatic rib deformities on the left. The lungs appear to be clear and stable since the previous study of 01/06/2017. IMPRESSION: Stable chest.
[2017-01-08] MEDS: ANORO ELLIPTA 62.5-25 MCG INH INH SCH (07:55)
[2017-01-08] MEDS: LIBRIUM PO SCH ×3 (09:15→20:38)
[2017-01-08] MEDS: PAXIL PO SCH (09:15)
[2017-01-08] MEDS: LACTULOSE PO SCH ×2 (09:15→20:38)
[2017-01-08] MEDS: FOLIC ACID PO SCH (09:15)
[2017-01-08 09:35] LABS: LYMPHS 13 % (21-51); MONO 11 % (1-9)
--- NOTE | 2017-01-08 11:48 | PROGRESS NOTE ---
DATE: 01/08/2017 SUBJECTIVE: This patient looks about the same compared with yesterday. He is not agitated. He is alert and oriented x3. He has been tolerating p.o. but he is still having shortness of breath and because of that it is really hard to understand what he is saying. But compared with the admission he is better. OBJECTIVE: Vital Signs: Temperature 97.9 degrees, pulse 99, respiratory rate 20, blood pressure 151/90, O2 saturation 89% on 3 L of nasal cannula. HEENT: Head normocephalic. No trauma. PERRLA. Neck: Supple. No JVD. No masses. Central trachea. Cardiovascular: RRR. No murmurs. Chest: Bilateral generalized rhonchi and crackles. Abdomen: Soft, nontender, nondistended. No hepatosplenomegaly. Extremities: No edema. No clubbing. No cyanosis. Neurological: Patient is alert. He does not look anxious today he is following commands. He is moving all 4 extremities. LABORATORY: WBC 7.2, hemoglobin 12.8, hematocrit 38.7, platelet 151,000. Sodium 139, potassium 4, chloride 100, bicarbonate 27, BUN 13, creatinine 0.8. Glucose 164. Calcium 8.9. ASSESSMENT AND PLAN: 1. Seizure disorder, this last episode was on this admission. He has been getting Ativan p.r.n. and morphine p.r.n. We will continue to monitor. No more seizure activity for now. Most likely, this seizure activity was related to alcohol withdrawal. 2. Chronic obstructive pulmonary disease exacerbation. We will continue with IV steroids and pulmonary toilet, oxygen as well. Pulmonary Department has been consulted today. 3. Hypokalemia, resolved. This patient's potassium is normal today. 4. Hyperglycemia. Hemoglobin A1c is 5, we will continue to monitor. 5. Macrocytic anemia. His B12 is normal and his folate is borderline low. I started this patient already on folate. His anemia is likely related to chronic alcohol abuse as well. 6. Possible pneumonia. We will continue with antibiotics. He is getting Zosyn. He has been complaining before the admission about chills and green phlegm even though his white blood cells are normal. 7. Alcohol abuse. This patient has been monitored for delirium tremens/alcohol withdrawal. He is getting Librium 50 mg p.o. t.i.d. and also he is getting Ativan q.2 hours p.r.n. I will continue with thiamine as well. 8. Hyperbilirubinemia with transaminitis likely secondary to alcohol abuse and/or alcoholic hepatitis. 9. DVT prophylaxis. This patient is on SCDs. 10. GI prophylaxis. Continue with proton pump inhibitor.
--- NOTE | 2017-01-08 13:23 | CONSULTATION ---
DATE OF CONSULTATION: 01/08/2017 REFERRING PHYSICIAN: Dr. Mundo Mesa. CHIEF COMPLAINT: Seizure. HISTORY OF PRESENT ILLNESS: This is a 56-year-old, male with a past medical history of COPD, seizures and hypertension that presented to the hospital after having an apparent seizure. He has not had any seizure activity since admission, but does state he has been coughing up green phlegm. He has complaint of some shortness of breath. He denies any chest pain, abdominal pain, nausea, vomiting or diarrhea. REVIEW OF SYSTEMS: A 10-point review of systems was conducted and pertinent is noted in the HPI, otherwise noncontributory. PAST MEDICAL HISTORY: As mentioned in HPI, otherwise noncontributory. PAST SURGICAL HISTORY: Bilateral knee surgery. Rib repair. SOCIAL HISTORY: States he quit smoking 1 year ago, drinks 4 beers a day. Denies the use of illicit drug use despite positive tox screen for cannabinoids. FAMILY HISTORY: Noncontributory. ALLERGIES: No known drug allergies. ACTIVE MEDICATIONS: DuoNeb, Librium, folic acid, lactulose, Ativan, Solu-Medrol, morphine, Zofran, Protonix, Paxil, Zosyn, thiamine, Anoro Ellipta. PHYSICAL EXAMINATION: Vital Signs: Temperature 97.9, heart rate 99, respiratory rate 22, blood pressure 151/90, oxygen saturation 99%. General: Awake, alert, disheveled appearance. No acute distress noted. HEENT: Normocephalic and atraumatic. PERRL. Chest: Reduced entry with crackles bilaterally. Cardiovascular: Regular rate and rhythm. S1, S2 present. Abdomen: Soft, nontender, nondistended. Extremities: No edema noted. Neurologic: Alert and oriented x3. No focal deficits. LABS/INVESTIGATIONS: WBC 7.26, RBC is 3.65, hemoglobin 12.9, hematocrit 38.7, platelet count 151. Sodium 139, potassium 4, chloride 100, carbon dioxide 27, anion gap 12, BUN 13, creatinine 0.8, glucose 164. Chest x-ray performed on 01/08/2017 shows stable chest. ASSESSMENT AND PLAN: This is a 58-year-old, male with a past medical history mentioned in history of present illness, who presented to the hospital initially with seizures. He does complain of some shortness of breath with a productive cough with green sputum. He also has a history of chronic obstructive pulmonary disease, for which will continue inhaled bronchodilators, continue intravenous antibiotics and steroids. Supplemental oxygen as needed. Librium for delirium tremens. Ativan for seizures. Sequential compression devices for deep vein thrombosis prophylaxis. Continue gastrointestinal prophylaxis. Further recommendations pending diagnostic studies. Thank you for the courtesy of this consult. Dictated by WADE Elmore for Tomas Morgan MD
[2017-01-08 14:56] LABS: ALLEN TEST YES; BE 3.7 mmoll (-3.0-3.0); BLOOD TYPE ARTERIAL; DRAW SITE R RADIAL; METHB 1.4 % (0.0-1.5); O2(CT) 17.4 mL/dL (15.0-23.0); PO2(98.6) 81 mmHg (60-100); SAMPLE BLOOD; SAO2 98.6 % (95.0-100.0); pH(98.6) 7.37 (7.35-7.45)
[2017-01-08 14:57] LABS: MODALITY CANNULA
[2017-01-08 15:03] LABS: PCO2(98.6) 52 mmHg (35-45)
[2017-01-08] MEDS: THIAMINE 100 MG in NS 50 ML IV SCH (16:10)
[2017-01-08] MEDS: PROTONIX IV SCH (16:11)
[2017-01-08] MEDS: SODIUM CHLORIDE 0.9% INJ SCH (16:11)
[2017-01-09] MEDS: MORPHINE IV PRN ×5 (00:08→21:42)
[2017-01-09] MEDS: ZOSYN 3.375 GM/NS 50 ML IV SCH ×4 (03:07→21:42)
[2017-01-09] MEDS: DUONEB (A & A) INH SCH ×6 (03:11→22:59)
[2017-01-09 05:01] LABS: ALLEN TEST YES; BE 7.8 mmoll (-3.0-3.0); BLOOD TYPE ARTERIAL; DRAW SITE R RADIAL; METHB 1.7 % (0.0-1.5); O2(CT) 14.1 mL/dL (15.0-23.0); PO2(98.6) 142 mmHg (60-100); SAMPLE BLOOD; SAO2 100.5 % (95.0-100.0); THB 10.2 g/dL (11.5-17.4); pH(98.6) 7.38 (7.35-7.45)
[2017-01-09 05:03] LABS: MODALITY CANNULA; PCO2(98.6) 58 mmHg (35-45)
[2017-01-09] MEDS: SOLU-MEDROL IV SCH ×2 (05:19→16:10)
[2017-01-09 06:52] LABS: BASO% 0.2 % (0.0-0.8); EOS# 0.03 X1000 (0.0-0.7); EOS% 0.5 % (0.0-10.0); HEMATOCRIT 37.3 % (42.0-52.0); IMM GRAN# 0.04 X1000 (0.0-0.04); IMM GRAN% 0.7 % (0.0-0.5); LYMPH# 1.46 X1000 (1.2-3.4); LYMPH% 26.2 % (20.5-51.1); MANUAL DIFF NEEDED? YES; MCH 34.1 PG (27-31); MCHC 32.2 g/dL (33-37); MONO# 0.84 X1000 (0.11-0.59); MONO% 15.1 % (1.7-9.3); MPV 9.8 FL (7.4-10.4); NEUT% 57.3 % (42.2-75.2); PLT 149 X1000 (130-400); RBC 3.52 XMIL (4.7-6.1)
[2017-01-09 06:58] LABS: AGAP 9; BUN 12 mg/dL (8-22); CALCIUM 7.9 mg/dL (8.8-10.2); CHLORIDE 100 mmol/L (98-107); COSMO 280; POTASSIUM 3.2 mmol/L (3.5-5.1); SODIUM 139 mmol/L (136-145); TCO2 30 mmol/L (25-35)
[2017-01-09] MEDS ORDERED: KLOR-CON PO ONE (07:44)
[2017-01-09 07:49] LABS: BANDS 1 % (0-1); LYMPHS 23 % (21-51); MONO 16 % (1-9)
[2017-01-09] MEDS: ANORO ELLIPTA 62.5-25 MCG INH INH SCH (07:49)
[2017-01-09 07:50] LABS: HYPOCHROM 1+
[2017-01-09] MEDS: LACTULOSE PO SCH ×2 (09:01→21:42)
[2017-01-09] MEDS: LIBRIUM PO SCH ×3 (09:02→21:42)
[2017-01-09] MEDS: FOLIC ACID PO SCH (09:03)
[2017-01-09] MEDS: PAXIL PO SCH (09:03)
--- NOTE | 2017-01-09 15:04 | PROGRESS NOTE ---
DATE: 01/09/2017 SUBJECTIVE: This patient looks a little bit better today. He is not agitated. He is alert, oriented x3. Yesterday I had a conversation with the family and they agreed to send this patient either to a rehab center or even better if he can be sent to a detox center. OBJECTIVE: Vital Signs: Temperature 97.8 degrees, blood pressure 129/88, pulse 88, respiratory rate 19, O2 saturation 98 on 3 L of nasal cannula. HEENT: Head normocephalic. No trauma. PERRLA. Neck: Supple. No JVD. No masses. Central trachea. Cardiovascular: RRR. No murmurs. Chest: Bilateral generalized rhonchi and crackles. Abdomen: Soft, nontender, nondistended. No hepatosplenomegaly. Extremities: No edema. No clubbing. No cyanosis. Neurological: The patient is alert. This patient does not look anxious and he is following commands. He is moving all 4 extremities. LABORATORY: WBC 5.5, hemoglobin 12, hematocrit 37.3, platelets 149,000. Sodium 139, potassium 3.2, chloride 100, bicarbonate 30, BUN 12, creatinine 0.6, glucose 155, calcium 7.9. ASSESSMENT AND PLAN: 1. Seizure disorder, the last episode was upon admission. He has been getting Ativan p.r.n. and morphine p.r.n. We will continue to monitor. No more seizure activity for now. Most likely the seizure activity was related to alcohol withdrawal. I will continue with Librium. 2. Chronic obstructive pulmonary disease exacerbation. I will continue with IV steroids and pulmonary toilet, oxygen as well. Pulmonary Department is following this patient. 3. Hypokalemia. I will replace the potassium today. 4. Hyperglycemia. Hemoglobin A1c is 5. We will continue to monitor. 5. Macrocytic anemia. His B12 is normal and folate is borderline low. I already started this patient on folate. His anemia also is likely related to chronic alcohol abuse as well. 6. Possible pneumonia. I will continue with antibiotics. This patient is getting Zosyn. So far no fever, no chills. 7. Alcohol abuse. This patient has been monitor for delirium tremens/alcohol withdrawal. He is getting Librium 50 mg p.o. t.i.d. and also he is getting Ativan q.2 hours p.r.n. I will continue with thiamine as well. 8. Hyperbilirubinemia and transaminitis. This is likely related to alcohol abuse/alcoholic hepatitis. 9. DVT prophylaxis. This patient is on SCDs. 10. GI prophylaxis. Continue with PPIs.
[2017-01-09] MEDS: SODIUM CHLORIDE 0.9% INJ SCH (16:10)
[2017-01-09] MEDS: THIAMINE 100 MG in NS 50 ML IV SCH (16:10)
[2017-01-09] MEDS: PROTONIX IV SCH (16:10)
[2017-01-10] MEDS: MORPHINE IV PRN ×4 (01:58→14:52)
[2017-01-10] MEDS: ZOSYN 3.375 GM/NS 50 ML IV SCH ×4 (01:59→20:07)
[2017-01-10] MEDS: ATIVAN IV PRN (02:41)
[2017-01-10] MEDS: DUONEB (A & A) INH SCH ×6 (03:20→22:58)
[2017-01-10] MEDS: SOLU-MEDROL IV SCH ×2 (04:22→18:20)
[2017-01-10 07:14] LABS: AGAP 11; BUN 12 mg/dL (8-22); CALCIUM 8.4 mg/dL (8.8-10.2); CHLORIDE 102 mmol/L (98-107); COSMO 286; POTASSIUM 3.6 mmol/L (3.5-5.1); SODIUM 143 mmol/L (136-145); TCO2 30 mmol/L (25-35)
[2017-01-10 07:18] LABS: BASO% 0.2 % (0.0-0.8); EOS# 0.02 X1000 (0.0-0.7); EOS% 0.4 % (0.0-10.0); HEMOGLOBIN 11.4 g/dL (14.0-18.0); IMM GRAN# 0.07 X1000 (0.0-0.04); IMM GRAN% 1.3 % (0.0-0.5); LYMPH# 0.87 X1000 (1.2-3.4); LYMPH% 15.8 % (20.5-51.1); MANUAL DIFF NEEDED? NO; MCH 33.6 PG (27-31); MCHC 31.7 g/dL (33-37); MCV 106.2 FL (81-99); MONO# 0.71 X1000 (0.11-0.59); MONO% 12.9 % (1.7-9.3); MPV 10.3 FL (7.4-10.4); NEUT% 69.4 % (42.2-75.2); PLT 159 X1000 (130-400); RBC 3.39 XMIL (4.7-6.1)
[2017-01-10] MEDS: ANORO ELLIPTA 62.5-25 MCG INH INH SCH (08:00)
[2017-01-10 10:20] LABS: ALLEN TEST YES; BE 7.8 mmoll (-3.0-3.0); BLOOD TYPE ARTERIAL; DRAW SITE R RADIAL; METHB 1.7 % (0.0-1.5); O2(CT) 15.7 mL/dL (15.0-23.0); PO2(98.6) 62 mmHg (60-100); SAMPLE BLOOD; SAO2 95.3 % (95.0-100.0); THB 12.1 g/dL (11.5-17.4); pH(98.6) 7.42 (7.35-7.45)
[2017-01-10] MEDS: PAXIL PO SCH (10:20)
[2017-01-10] MEDS: LACTULOSE PO SCH ×2 (10:20→20:07)
[2017-01-10] MEDS: FOLIC ACID PO SCH (10:21)
[2017-01-10] MEDS: LIBRIUM PO SCH ×3 (10:21→20:06)
[2017-01-10 10:25] LABS: PCO2(98.6) 52 mmHg (35-45)
--- NOTE | 2017-01-10 13:47 | PROGRESS NOTE ---
DATE: 01/10/2017 SUBJECTIVE: This patient looks much better today. He is able to talk without coughing. He is not agitated. He is alert and oriented x3. A few days ago had a conversation with the family and we agreed to send this patient either to rehab center or even better to a detox center. He is not complaining about abdominal pain or chest pain. Mild shortness of breath at this moment. OBJECTIVE: Vital Signs: Temperature 97.9 degrees, pulse 92, respiratory rate 18, blood pressure 144/69, O2 saturation 92% on 3 L of nasal cannula. HEENT: Head normocephalic. No trauma. PERRLA. Neck: Supple. No JVD. No masses. Central trachea. Cardiovascular: Regular rhythm and rate. No murmurs. Chest: Bilateral generalized rhonchi and crackles. Abdomen: Soft, nontender, nondistended. No hepatosplenomegaly. Extremities: No edema. No clubbing. No cyanosis. Neurological: The patient is alert, he is oriented x3. He moves all 4 extremities. He is not anxious today. LABORATORY: WBC 5.4, hemoglobin 11.4, hematocrit 36, platelets 159,000. Sodium 143, potassium 3.6, chloride 102, bicarbonate 30, BUN 12, creatinine 0.6, glucose 124, calcium 8.4. ASSESSMENT AND PLAN: 1. Seizure disorder. Last episode was upon admission. He has been getting Ativan p.r.n. and morphine p.r.n. We will continue to monitor. No more seizure activity for now. Most likely the seizure activity was related to alcohol intoxication. We will continue with Librium. 2. Chronic obstructive pulmonary disease exacerbation. I will continue with intravenous steroids and pulmonary toilet, he is getting oxygen as well. Pulmonary Department is following this patient. 3. Hypokalemia. The potassium is normal today. 4. Hyperglycemia. Hemoglobin A1c is 5. We will continue to monitor. 5. Microcytic anemia. His B12 is normal and folate is borderline low. I already started this patient on folate. His anemia is also related to chronic alcohol abuse as well. 6. Pneumonia. I will continue with antibiotics. Patient is getting Zosyn. So far, no fever or chills. 7. Alcohol abuse. This patient has been monitored for delirium tremens/alcohol withdrawal. He is getting Librium 50 mg p.o. t.i.d. and he is also getting Ativan q.2 hours p.r.n. I will continue with thiamine as well. 8. Hyperbilirubinemia and transaminitis. This is likely related to alcohol abuse/alcoholic hepatitis. 9. Deep venous thrombosis prophylaxis. This patient is on Sequential Compression Devices. 10. Gastrointestinal prophylaxis. Continue with proton pump inhibitor.
[2017-01-10] MEDS: THIAMINE 100 MG in NS 50 ML IV SCH (18:20)
[2017-01-10] MEDS: SODIUM CHLORIDE 0.9% INJ SCH (18:20)
[2017-01-10] MEDS: PROTONIX IV SCH (18:20)
[2017-01-11] MEDS: ZOSYN 3.375 GM/NS 50 ML IV SCH ×4 (02:52→20:22)
[2017-01-11] MEDS: MORPHINE IV PRN ×4 (02:54→20:32)
[2017-01-11] MEDS: SOLU-MEDROL IV SCH ×2 (02:57→16:24)
[2017-01-11] MEDS: DUONEB (A & A) INH SCH ×6 (03:31→22:40)
[2017-01-11 06:59] LABS: MANUAL DIFF NEEDED? NO
[2017-01-11 07:18] LABS: BASO% 0.2 % (0.0-0.8); EOS# 0.01 X1000 (0.0-0.7); EOS% 0.2 % (0.0-10.0); HEMATOCRIT 37.5 % (42.0-52.0); HEMOGLOBIN 12.2 g/dL (14.0-18.0); IMM GRAN# 0.04 X1000 (0.0-0.04); IMM GRAN% 0.7 % (0.0-0.5); LYMPH# 0.71 X1000 (1.2-3.4); LYMPH% 12.4 % (20.5-51.1); MCH 34.1 PG (27-31); MCHC 32.5 g/dL (33-37); MCV 104.7 FL (81-99); MONO# 0.44 X1000 (0.11-0.59); MONO% 7.7 % (1.7-9.3); NEUT% 78.8 % (42.2-75.2); PLT 165 X1000 (130-400); RBC 3.58 XMIL (4.7-6.1)
[2017-01-11 07:30] LABS: AGAP 8; ALKALINE PHOSPHATASE 134 U/L (32-122); BUN 14 mg/dL (8-22); CALCIUM 8.4 mg/dL (8.8-10.2); CHLORIDE 100 mmol/L (98-107); COSMO 282; GOT 83 U/L (10-34); GPT 89 U/L (10-44); POTASSIUM 4.2 mmol/L (3.5-5.1); SODIUM 140 mmol/L (136-145); TCO2 32 mmol/L (25-35); TOTAL BILIRUBIN 0.59 mg/dL (0.20-1.00); TOTAL PROTEIN 6.8 g/dL (6.3-8.3)
[2017-01-11] MEDS: PAXIL PO SCH (08:01)
[2017-01-11] MEDS: LIBRIUM PO SCH ×3 (08:01→20:22)
[2017-01-11] MEDS: LACTULOSE PO SCH ×2 (08:01→20:22)
[2017-01-11] MEDS: FOLIC ACID PO SCH (08:01)
[2017-01-11] MEDS: ANORO ELLIPTA 62.5-25 MCG INH INH SCH (09:01)
[2017-01-11] MEDS: SODIUM CHLORIDE 0.9% INJ SCH (16:24)
[2017-01-11] MEDS: PROTONIX IV SCH (16:24)
[2017-01-11] MEDS: THIAMINE 100 MG in NS 50 ML IV SCH (16:25)
--- NOTE | 2017-01-11 16:51 | PROGRESS NOTE ---
DATE: 01/11/2017 SUBJECTIVE: This patient looks fine today. He is able to talk but he is still coughing and short of breath. He is not agitated. He is alert and oriented x3, I think this patient is close to be discharged but he needs to go to a rehab center and eventually he needs to go to a detox center. Probably he needs to go to the detox center after the rehab center. OBJECTIVE: Vital Signs: Temperature 97.9 degrees, pulse 86, respiratory rate 16, blood pressure 138/89, O2 saturation, 97 on 3 L of nasal cannula. HEENT: Head normocephalic. No trauma. PERRLA. Neck: Supple. No JVD. No masses. Central trachea. Cardiovascular: RRR. No murmurs. Chest: Bilateral generalized rhonchi. Abdomen: Soft, nontender, nondistended. No hepatosplenomegaly. Extremities: No edema. No clubbing. No cyanosis. Neurological: The patient is alert and oriented x3. He moves all 4 extremities. He is not anxious today. LABORATORY: WBC 5.7, hemoglobin 12.2, hematocrit 37.5, platelets 165,000. Sodium 140, potassium 4.2, chloride 100, bicarbonate 32, BUN 14, creatinine 0.7, glucose 137, calcium 8.4. ASSESSMENT AND PLAN: 1. Seizure disorder. Last episode was upon admission. He has been getting Ativan p.r.n. and morphine p.r.n. We will continue to monitor. No more seizure activity for now. Most likely the seizure activity was related to alcohol intoxication. Will continue with Librium. 2. Chronic obstructive pulmonary disease exacerbation. I will continue with IV steroids and pulmonary toilet. He is getting oxygen as well. Pulmonary department is following this patient. 3. Hyperglycemia. His hemoglobin A1c is 5. Will continue to monitor. 4. Macrocytic anemia. His B12 is normal and folate is borderline now. I already started this patient on folate. His anemia is also related probably to chronic alcohol abuse. 5. Pneumonia. I will continue with antibiotics. This patient is getting Zosyn. So far no fever, no chills. 6. Alcohol abuse. This patient has been monitored for delirium tremens/alcohol withdrawal. He is getting Librium 50 mg p.o. t.i.d. and also Ativan p.r.n. I will continue with thiamine as well. Probably this patient will need to go to a detox center. 7. Hyperbilirubinemia and transaminitis. This is likely related to alcohol abuse/alcoholic hepatitis. 8. Deep vein thrombosis prophylaxis. This patient is on sequential compression devices. 9. Gastrointestinal prophylaxis. Continue with PPIs. Overall this patient is better. He still continues with shortness of breath and cough, it looks like we are dealing with an advanced chronic obstructive pulmonary disease. This patient has generalized weakness. Probably this patient will be discharged to a rehab center once this patient is ready to go.
--- NOTE | 2017-01-11 16:54 | Diag Imaging Result Document ---
PROCEDURE NAME: CHEST-PORTABLE - 01/11/2017 PORTABLE CHEST AT 1310 HOURS: FINDINGS: The appearance of the chest has not changed significantly since 01/08/2017 considering differences in inspiration. IMPRESSION: Stable chest.
[2017-01-12] MEDS: MORPHINE IV PRN ×5 (00:51→22:18)
[2017-01-12] MEDS: DUONEB (A & A) INH SCH ×5 (03:19→23:11)
[2017-01-12] MEDS: SOLU-MEDROL IV SCH ×2 (03:41→17:04)
[2017-01-12] MEDS: ZOSYN 3.375 GM/NS 50 ML IV SCH ×4 (03:41→21:41)
[2017-01-12 06:54] LABS: MANUAL DIFF NEEDED? NO
[2017-01-12 07:06] LABS: BASO% 0.2 % (0.0-0.8); EOS# 0.02 X1000 (0.0-0.7); EOS% 0.3 % (0.0-10.0); HEMATOCRIT 36.9 % (42.0-52.0); HEMOGLOBIN 12.4 g/dL (14.0-18.0); IMM GRAN# 0.04 X1000 (0.0-0.04); IMM GRAN% 0.6 % (0.0-0.5); LYMPH# 0.76 X1000 (1.2-3.4); LYMPH% 11.8 % (20.5-51.1); MCH 34.4 PG (27-31); MCHC 33.6 g/dL (33-37); MCV 102.5 FL (81-99); MONO# 0.32 X1000 (0.11-0.59); MPV 10.2 FL (7.4-10.4); NEUT% 82.1 % (42.2-75.2); PLT 169 X1000 (130-400)
[2017-01-12 07:24] LABS: AGAP 8; BUN 14 mg/dL (8-22); CALCIUM 8.3 mg/dL (8.8-10.2); CHLORIDE 97 mmol/L (98-107); COSMO 276; POTASSIUM 3.9 mmol/L (3.5-5.1); SODIUM 136 mmol/L (136-145); TCO2 31 mmol/L (25-35)
[2017-01-12] MEDS: ANORO ELLIPTA 62.5-25 MCG INH INH SCH (08:26)
[2017-01-12] MEDS: PAXIL PO SCH (08:51)
[2017-01-12] MEDS: LIBRIUM PO SCH ×3 (08:51→21:41)
[2017-01-12] MEDS: LACTULOSE PO SCH ×2 (08:52→21:41)
[2017-01-12] MEDS: FOLIC ACID PO SCH (08:52)
[2017-01-12] MEDS ORDERED: MORPHINE IV ONE (12:31)
[2017-01-12] MEDS: PROTONIX IV SCH (17:04)
[2017-01-12] MEDS: THIAMINE 100 MG in NS 50 ML IV SCH (17:05)
--- NOTE | 2017-01-12 19:27 | PROGRESS NOTE ---
DATE: 01/12/2017 SUBJECTIVE: This patient looks about the same compared with yesterday. He is still coughing and when he has physical activity, he gets short of breath, he has a long history of COPD that is in exacerbation. He has been treated by Pulmonary Department during this hospitalization. OBJECTIVE: Vital Signs: Temperature 97.5, pulse 94, respiratory rate 21. Blood pressure 133/82, O2 saturation 98% on 2 L of nasal cannula. HEENT: Head normocephalic. No trauma. PERRLA. Neck: Supple. No JVD. No masses. Central trachea. Cardiovascular: Regular rhythm and rate. No murmurs. Chest: Bilateral generalized rhonchi. Abdomen: Soft, nontender, nondistended. No hepatosplenomegaly. Extremities: No edema. No clubbing. No cyanosis. Neurological: The patient is alert. He is oriented x3. He moves all 4 extremities. He is not anxious today. LABORATORY: WBC 6.4, hemoglobin 12.4, hematocrit 36.9, platelet 169,000. Sodium 136, potassium 3.9, chloride 97, bicarbonate 31, BUN 14, creatinine 0.6, glucose 161, calcium 8.3. ASSESSMENT AND PLAN: 1. Seizure disorder. Last episode was upon admission. He has been getting Ativan p.r.n. and morphine p.r.n. We will continue to monitor. No more seizure activity for now. Most likely the seizure was related to alcohol intoxication and dehydration. We will continue with Librium. 2. Chronic obstructive pulmonary disease exacerbation. We will continue with IV steroids and pulmonary toilet. Upon discharge we can switch the IV steroids to p.o. steroids. Pulmonary Department is following this patient. We will continue with oxygen as well. 3. Hyperglycemia. His hemoglobin A1c is 5. We will continue to monitor. 4. Microcytic anemia. His B12 is normal and folate is borderline low. I already started this patient on folate. His anemia is also related probably to chronic alcohol abuse. 5. Pneumonia. Continue with antibiotics. This patient is getting Zosyn. So far, no fever, no chills. 6. Alcohol abuse. This patient has been monitored for delirium tremens and alcohol withdrawal. He is getting Librium 50 mg p.o. t.i.d. and also Ativan p.r.n. I will continue with thiamine as well. Probably this patient will need to go to a detox center, but this patient probably will not qualify. 7. Hyperbilirubinemia and transaminitis. This is likely related to alcohol abuse/alcohol hepatitis. 8. Deep venous thrombosis prophylaxis. This patient is on Sequential Compression Devices. 9. Gastrointestinal prophylaxis. Continue with proton pump inhibitor. Overall, this patient is doing better. He still continues with shortness of breath and cough, mostly when he has any kind of physical activity. He has an advanced chronic obstructive pulmonary disease. This patient has generalized weakness and he lives with a friend. This person cannot take care of him. I also had a conversation with his sister by phone, and she states that she cannot take care of him either. So the only problem with him in the near future is placement. He has been advised about alcohol abuse and cigarette smoking multiple times. motion picture set worker is on board.
[2017-01-13] MEDS: SOLU-MEDROL IV SCH ×2 (02:33→14:01)
[2017-01-13] MEDS: ZOSYN 3.375 GM/NS 50 ML IV SCH ×4 (02:33→20:58)
[2017-01-13] MEDS: MORPHINE IV PRN ×5 (02:34→23:38)
[2017-01-13] MEDS: DUONEB (A & A) INH SCH ×6 (03:09→23:23)
[2017-01-13 07:50] LABS: AGAP 8; BUN 13 mg/dL (8-22); CALCIUM 8.6 mg/dL (8.8-10.2); CHLORIDE 100 mmol/L (98-107); COSMO 280; POTASSIUM 4.2 mmol/L (3.5-5.1); SODIUM 138 mmol/L (136-145); TCO2 30 mmol/L (25-35)
[2017-01-13 07:59] LABS: BASO% 0.1 % (0.0-0.8); HEMATOCRIT 37.6 % (42.0-52.0); IMM GRAN# 0.05 X1000 (0.0-0.04); IMM GRAN% 0.7 % (0.0-0.5); LYMPH% 8.6 % (20.5-51.1); MANUAL DIFF NEEDED? YES; MCH 33.4 PG (27-31); MCHC 31.9 g/dL (33-37); MCV 104.7 FL (81-99); MONO# 0.25 X1000 (0.11-0.59); MONO% 3.6 % (1.7-9.3); MPV 10.2 FL (7.4-10.4); PLT 177 X1000 (130-400); RBC 3.59 XMIL (4.7-6.1)
[2017-01-13] MEDS: ANORO ELLIPTA 62.5-25 MCG INH INH SCH (08:08)
[2017-01-13 08:24] LABS: LYMPHS 8 % (21-51); MONO 2 % (1-9)
[2017-01-13] MEDS: FOLIC ACID PO SCH (09:32)
[2017-01-13] MEDS: PAXIL PO SCH (09:32)
[2017-01-13] MEDS: LIBRIUM PO SCH ×3 (09:33→20:58)
[2017-01-13] MEDS: LACTULOSE PO SCH ×2 (09:33→20:58)
[2017-01-13] MEDS: THIAMINE 100 MG in NS 50 ML IV SCH (15:50)
[2017-01-13] MEDS: PROTONIX IV SCH (15:50)
[2017-01-13] MEDS: SODIUM CHLORIDE 0.9% INJ SCH (15:50)
--- NOTE | 2017-01-13 16:02 | PROGRESS NOTE ---
DATE: 01/13/2017 SUBJECTIVE: Patient reports feeling fine. Still coughing but he reports not getting short of breath while he walks. OBJECTIVE: Vital Signs: Temperature 97.8 degrees, heart rate 89, respiratory rate 19, blood pressure 127/80, O2 saturation 94% on room air. General Examination: This is a chronically ill- looking, 56-year-old male, lying in bed, in no acute distress. HEENT: Head is normocephalic, atraumatic. Anicteric sclerae and pale conjunctivae. Mucous membranes dry. Neck: Supple. No JVD noted. No carotid bruits. No lymphadenopathy. No thyromegaly. Cardiovascular Exam: S1, S2 heard. No murmurs, gallops, or rubs. Regular rate and rhythm. Respiratory: Clear bilaterally to auscultation. No work of breathing or using accessory muscles. Abdomen: Soft. Nontender to palpation. Bowel sounds present. Globally decreased breath sounds with a few wheezes in both bases. Patient is not using any accessory muscles or having work of breathing. Abdomen: Soft. Nontender to palpation. Nondistended. Bowel sounds present. No organomegaly. Extremities: No clubbing, cyanosis, or edema. Peripheral pulses present in both legs. Neurological: Patient alert and oriented x3. Able to move her extremities. Cranial nerves 2 though 12 grossly normal. LABORATORY DATA: White cell count 6.99, hemoglobin 12.0, hematocrit 37.6, platelets 177,000. BMP completely unremarkable. ASSESSMENT AND PLAN: 1. Seizure disorder. No more episodes of seizure since admission. Definitely this could be related to alcohol withdrawal. At this time this condition is well controlled. We will continue with Librium and we are going to taper off at discharged. 2. Chronic obstructive pulmonary disease exacerbation. Although he is on home medications and DuoNeb every 4 hours, he is still having some wheezing. I think this is very advanced COPD. In any case, the patient is doing fine and definitely will need home oxygen. 3. Microcytic anemia. Patient is receiving B12 shots. We will continue also providing folate for this patient. 4. Community-acquired pneumonia. Patient is getting Zosyn. We can easily switched to Augmentin upon discharge. 5. Alcohol abuse. As we mentioned before, this patient is getting Librium 50 mg t.i.d. for alcohol withdrawal. We can taper it off upon discharge. We will continue providing also thiamine. 6. Transaminitis. Most probably related to alcohol consumption. 7. Physical deconditioning. Patient has been working with physical therapy. He was able to walk around in the hallways with assistance. At this time if this patient continues to improve he might be discharged tomorrow with home health.
[2017-01-13] MEDS: ATIVAN IV PRN (23:39)
[2017-01-14] MEDS: SOLU-MEDROL IV SCH ×2 (02:49→14:21)
[2017-01-14] MEDS: ZOSYN 3.375 GM/NS 50 ML IV SCH ×3 (02:49→14:21)
[2017-01-14] MEDS: MORPHINE IV PRN ×2 (03:34→08:34)
[2017-01-14] MEDS: DUONEB (A & A) INH SCH ×3 (03:39→11:17)
[2017-01-14 05:15] VITALS: BP 101/65
--- NOTE | 2017-01-14 07:55 | Diag Imaging Result Document ---
PROCEDURE NAME: CHEST-1 VIEW - 01/14/2017 PORTABLE CHEST, 01/14/2017 AT 0710 HOURS: FINDINGS: The appearance of the chest has not changed significantly since 01/11/2017. There is COPD. IMPRESSION: Stable chest.
[2017-01-14] MEDS: ANORO ELLIPTA 62.5-25 MCG INH INH SCH (08:08)
[2017-01-14] MEDS: PAXIL PO SCH (08:35)
[2017-01-14] MEDS: LIBRIUM PO SCH ×2 (08:35→14:21)
[2017-01-14] MEDS: FOLIC ACID PO SCH (08:35)
[2017-01-14] MEDS: LACTULOSE PO SCH (08:35)
--- NOTE | 2017-01-15 05:45 | DISCHARGE SUMMARY ---
ADMISSION DATE: 01/03/2017 DISCHARGE DATE: 01/14/2017 CONSULTATIONS: Tomas Morgan MD PERTINENT PROCEDURES: 1. Head CT that showed stable atrophy but no evidence of acute intracranial pathology. 2. Abdomen ultrasound showed prominent liver with findings suggestive of hepatic steatosis. 3. Chest CT. Patchy bronchiectasis and mild bronchial mucosal thickening suggesting bronchitis. Patchy ground-glass opacity throughout both lungs that appear to be largely associated with clusters of mild erratic bronchi indicating adjacent mild pneumonitis pneumonia. An 8.3 mm left lower lobe noncalcified nodule that is nonspecific but probably either represents noncalcified granuloma or perhaps mildly ectatic bronchus containing mucoid debris. Prominent fatty liver. 4. Final followup chest x-ray was stable. DISCHARGE DIAGNOSES: 1. Seizure disorder believed secondary to alcohol withdrawal. No more episodes since admission. 2. Chronic obstructive pulmonary disease exacerbation. Improved. We will continue with home dilators. 3. Microcytic anemia. Patient has received B12 shots. We will continue with folate. 4. Community-acquired pneumonia. The patient has received full course of IV antibiotics. 5. Alcohol abuse. The patient was placed on Librium with a taper. He will now be going home on a week's worth of baclofen. 6. Transaminitis secondary to alcohol consumption. 7. Hepatic steatosis secondary to alcohol abuse. 8. Physical deconditioning. Patient has been working with physical therapy. He has been refused from several rehabs and with his insurance, he has been turned down by [facility]. However, he was provided with outpatient services. It has also been provided to him that he can go to [facility] and receive outpatient rehab at their facility in [place]. His sister had refused to take him home. HOSPITAL COURSE: Mr. Mueller is a 56-year-old male, who has a past medical history of COPD, seizure disorder, hypertension, noncompliance and alcohol abuse. Lives with a roommate. His roommate was awoken by the dog, and Mr. Mueller was found seizing and unresponsive, 911 was called. He was brought to the ED. A CT of the head was performed. It was negative. Laboratory data: Electrolytes: Sodium was 128, magnesium was 1.7, elevated total bilirubin of 8.12. Urine drug screen was positive for cannabinoids but negative for alcohol. Patient states last time he drank was about 2 days ago prior to his admission. He normally drinks around 4 beers per day. Patient has also been complaining of hot and cold flashes with shortness of breath, chest pain and coughing up green phlegm. The patient did have a normal white count. He was afebrile. The patient was admitted to [facility] for close monitoring with increased risk of seizures as well as increased risk for respiratory failure and aspiration. He was given Ativan p.r.n. for seizures. He was placed on seizure precautions. For COPD exacerbation, he was placed on bronchodilators, IV steroids, and aggressive pulmonary toilet. For his community-acquired pneumonia, he was started on IV Zosyn. For his alcohol abuse, he was started on Librium. This was tapered down. Due to his transaminitis, the patient did undergo an abdominal ultrasound that did show a prominent liver suggestive of hepatic steatosis. Dr. Morgan was also consulted. He agreed with all treatment as well as supplemental O2 as needed. The patient has been stable for discharge now for a few days. We have been pending rehab placement versus an inpatient detox center. Medical Center Manager was working closely with the family. He has a sister who is involved in his care. She refuses to take him home. She wanted inpatient treatment for him but unfortunately with his alcohol abuse, no facilities, rehabs around here would take him and they did not have any more beds for that type of patient. [facility] did come and see the patient. He did not meet their inpatient criteria, but they did offer him to outpatient treatment facilities that were state funded. The patient is medically stable for discharge. I spoke with the sister. The patient will either be discharged home with her or he could be discharged to the [facility] in [place] where they can do outpatient detox for him. the patient will be discharged to the [facility] so he can receive the appropriate treatment. This has been explained to his sister. VITAL SIGNS: At time of discharge, temperature is 98.2 degrees, heart rate 94, respirations 21, blood pressure 101/65, O2 is 93%. DISCHARGE DIET: Regular. DISCHARGE MEDICATIONS: 1. ProAir inhaler 8.5 g inhaled p.r.n. 2. Ultram 50 mg p.o. t.i.d. 3. Anoro Ellipta 1 puff inhaled RT daily. 4. Paxil 20 mg p.o. daily. 5. Folic acid 1 mg p.o. daily. 6. Baclofen 10 mg p.o. b.i.d. for alcohol withdrawal. 7. Medrol Dosepak 4 mg p.o. as directed. FOLLOWUP: The patient is being discharged to the [facility] in [place], where he can receive outpatient detox treatment. He will follow up with Dr. Medina as well as Dr. Morgan. Patient will be given a list of primary care physicians to follow up with who are accepting new patients. The patient is to return to the ED for any worsening of symptoms. TIME SPENT: Discharge Time greater than 30 minutes. Dictated by WADE Tineo for Rex Hess MD
--- NOTE | 2017-01-15 09:59 | DISCHARGE SUMMARY ---
ADMISSION DATE: 01/03/2017 DISCHARGE DATE: 01/14/2017 ADDENDUM: Since the patient has been discharged, his sister, Ms. Menon, has come in. She states that she will take him and try to get him into another facility in the [facility]. Dictated by WADE Tineo for Rex Hess MD
== END 2017-01-14 15:39 | disposition home or self-care (01) | DRG 896 ==
LOC: EDBD → ED 10:59 → EDIPHOLD 16:21 → 3S 20:17 → 3N 01-06 06:43
PROVIDERS: ATTEND Internal Medicine
DX: F10.239 Alcohol dependence with withdrawal, unspecified (principal); J18.9 Pneumonia, unspecified organism; D69.6 Thrombocytopenia, unspecified; K76.0 Fatty (change of) liver, not elsewhere classified; J44.1 Chronic obstructive pulmonary disease with (acute) exacerbation; E86.0 Dehydration; E87.1 Hypo-osmolality and hyponatremia; G40.909 Epilepsy, unspecified, not intractable, without status epilepticus; I10 Essential (primary) hypertension; Z91.128 Patient's intentional underdosing of medication regimen for other reason; F32.9 Major depressive disorder, single episode, unspecified; Z96.60 Presence of unspecified orthopedic joint implant; F12.90 Cannabis use, unspecified, uncomplicated; Z87.891 Personal history of nicotine dependence; Z79.899 Other long term (current) drug therapy; R74.8 Abnormal levels of other serum enzymes; D64.9 Anemia, unspecified; K59.00 Constipation, unspecified; E87.6 Hypokalemia; R73.9 Hyperglycemia, unspecified
CPT/HCPCS: 36415; 70450; 71010; 71020; 71250; 76700; 80048; 80053; 80076; 81001; 82248; 82607; 82728; 82746; 82805; 82948; 83036; 83540; 83550; 83605; 83735; 84100; 84484; 85025; 94640; 94760; 94761; 96365; 96372; 96375; 99406; C9113; G0480; J1940; J2060; J2270; J2543; J2920; J3411; J7030; J7050; 80320; 80324; 80329; 80345; 80346; 80349; 80353; 80358; 80361; 80365; 83992; 97110-GP; 97116-GP; 97530-GP; S0164

== ENCOUNTER 2017-01-17 19:31 | Inpatient (IN) ==
--- NOTE | 2017-01-17 19:42 | PROVIDER DOCUMENTATION ---
HPI-Syncope/Dizziness - General Chief Complaint: Altered Mental Status Stated Complaint: AMS Time Seen by Provider: 01/17/17 19:36 Source: patient, EMS Allergies/Adverse Reactions: Patient Allergies Allergy/AdvReac Type Severity Reaction Status Date / Time No Known Allergies Allergy Verified 01/17/17 20:11 Home Medications: Home Medication List Medication Instructions Recorded Confirmed Last Taken Type Paroxetine HCl [Paxil] 20 mg PO DAILY 01/03/17 01/17/17 Unknown History Tramadol HCl [Ultram] 50 mg PO TID PRN 01/03/17 01/17/17 Unknown History Albuterol Sulfate [Proair Hfa] 8.5 gm IH PRN PRN #1 [id number].[id number] 01/14/17 Unknown Rx Baclofen [Lioresal] 10 mg PO BID #14 tablet 01/14/17 01/17/17 Unknown Rx Folic Acid 1 mg PO DAILY #30 tablet 01/14/17 01/17/17 Unknown Rx Methylprednisolone [Medrol Dosepak] 4 mg PO DIRECTED #1 package 01/14/1703/02 Unknown Rx Umeclidinium/Vilanterol [Anoro 1 puff INH RTDAILY #1 inhaler 01/14/17 01/17/17 Unknown Rx Ellipta 62.5-25 Mcg INH] - History of Present Illness-Syncope/Dizzy Nature of Presenting Problem: Pt is a 56 yom who presents to ER via EMS after suffering a syncopal episode at home scow captain. Per EMS, pt was in the bathroom when he passed out, fell down, and became incontinent of stool. EMS reports thatpt was hypotensive and tachycardic when they arrived on scene; Pt was still hypotensive (80/60) and tachycardic (ST -140) on exam. EMS reports pt was unconscious when they arrived on scene, but pt was slowly regaining responsiveness on exam, pt was able to respond and move all extremities. Pupils are constricted, has equal motor strength, distended abdomen with absent bowel sounds, diaphormatic breathing, flat neck veins, and incontinent of stool. Onset/Duration: reports: just prior to arrival Timing: reports: still present, improving Position/Activity at time of episode: reports: sitting (using bathroom) Context: reports: lost consciousness, became unresponsive, collapsed, incontinent of stool, breathing shallow Loss of Consciousness: prolonged (minutes) Location of injury. (If syncope resulted in an injury.): reports: head Current Symptoms: reports: breathing difficulty, short of breath, weakness, lightheaded, dizzy, weak pulse, lightheaded. denies: fever, chills, sweaty, chest pain, abdominal pain, nausea, vomiting, shoulder pain, arm pain, headache , pale, headache, blurred vision Recently Seen Here or By Another Healthcare Provider: Yes (possible recent discharge) Review of Systems - Adult - REVIEW OF SYSTEMS - ADULT Constitutional: denies: chills, fever, fatique, night sweats, weight gain, weight loss Eyes: reports: no symptoms reported Ears, Nose, Mouth & Throat: reports: no symptoms reported Cardiovascular: reports: irregular heart rate, syncope. denies: chest pain, edema, heart murmur, orthopnea, palpitations, poor circulation, PND Respiratory: reports: shortness of breath, other (diaphormatic breathing). denies: chronic cough, cough, dyspnea on exertion, excessive sputum production, hemoptysis, pleurisy, wheezing Gastrointestinal: reports: no symptoms reported Genitourinary: reports: no symptoms reported Musculoskeletal: reports: no symptoms reported Integumentary: reports: no symptoms reported Neurological: reports: dizziness/vertigo, loss of balance, syncope. denies: ataxia, headache/migraines, numbness, paresthesia, seizure, slurred speech, tremors Psychiatric: reports: no symptoms reported Endocrine: reports: no symptoms reported Hematologic/Lymphatic: reports: no symptoms reported Allergic/Immunologic: reports: no symptoms reported All Other Systems: Reviewed and Negative Past History - Adult - PAST MEDICAL HISTORY-ADULT Review of Records: reports: Nursing Assessment Review, Medications Reviewed Respiratory: reports: COPD - PRIOR SURGERIES/PROCEDURES Surgical/Procedure History: reports: orthopedic (extremity), joint replacement - PRIOR HOSPITALIZATIONS Prior Hospitalizations: reports: for other non-related - IMMUNIZATION STATUS Childhood Immunizations: See Nurse Assessment Flu Vaccine: See Nurse Assessment Physical Exam-General - PHYSICAL EXAM-ADULT Initial Vital Signs Reviewed: Yes - CONSTITUTIONAL General Appearance: alert, severe distress, thin, lethargic, slow to respond. negative: appears well, no apparent distress, mild distress, moderate distress, obtunded, combative - NECK Neck: full range of motion, other (flat neck veins). negative: non-tender, supple - RESPIRATORY Respiratory: respiratory distress, decreased breath sounds, other (diaphormatic breathing). negative: chest non-tender, lungs clear, normal breath sounds - CARDIOVASCULAR Cardiovascular: normal peripheral pulses, tachycardia, other (hypotensive (80/60 )). negative: bradycardia - GASTROINTESTINAL (ABDOMEN) Abdominal Exam: abnormal bowel sounds (absent bowel sounds), distended. negative: normal bowel sounds, non tender, soft, tenderness, mass - LYMPHATIC Lymphatic: no adenopathy. negative: axilla node tender, cervical node tenderness, inguinal node tender - NEUROLOGIC Neurologic: EOM palsy, focal weakness, other (constricted pupils bilaterally). negative: grossly normal, no motor/sensory deficits, facial droop, motor weakness, sensory deficit - PSYCHIATRIC Psych/Mental Status: normal thought content, normal thought process, anxious, disheveled. negative: normal mood/affect, oriented x 3 Progress - PLAN OF CARE/RESULTS Progress/Plan/Lab Results: POC: radiology/respiratory/labs 2116: Hospitalist paged Vital Signs - 24 hr 01/17/17 01/17/17 19:31 20:01 Temperature 99.7 F H 97.9 F Pulse Rate 135 H 133 H Respiratory 21 25 H Rate Blood Pressure 88/60 93/60 O2 Sat by Pulse 99 100 Oximetry Orders Category Date Time Status CHEST-PORTABLE [RAD] Stat Exams 01/17/17 19:37 Taken HEAD W/O CONTRAST [CT] Stat Exams 01/17/17 20:47 Ordered ABG [RESP] Routine Lab 01/17/17 20:10 Completed CBC WITH ELECTRONIC DIFF [HEME] Stat Lab 01/17/17 19:30 Completed CK PROFILE [SP CHEM] Stat Lab 01/17/17 19:30 Completed COMPREHENSIVE METABOLIC PANEL [CHEM] Stat Lab 01/17/17 19:30 Completed PRO B-NATRIURETIC PEPTIDE Stat Lab 01/17/17 19:30 Completed PROTIME WITH INR [COAG] Stat Lab 01/17/17 19:30 Completed PTT [COAG] Stat Lab 01/17/17 19:30 Completed TROPONIN T Stat Lab 01/17/17 19:30 Completed UA NIMS W/REFLEX CULT [URINALYSIS] Stat Lab 01/17/17 19:55 Completed URINE DRUG SCREEN Stat Lab 01/17/17 19:55 Completed 0.9% Sodium Chloride Inj [Ns] 1,000 ml Med 01/17/17 20:07 Discontinued IV 999 mls/hr EKG [EKG] Stat Ther 01/17/17 19:54 Ordered Laboratory Tests 01/17/17 01/17/17 01/17/17 19:30 19:30 19:30 WBC 27.25 H RBC 4.01 L Hgb 13.9 L Hct 41.3 L MCV 103.0 H MCH 34.7 H MCHC 33.7 RDW Std Deviation 15.3 H Plt Count 209 MPV 10.4 Immature Gran % (Auto) 0.4 Neut % (Auto) 89.7 H Lymph % (Auto) 3.0 L Hinds % (Auto) 6.6 Eos % (Auto) 0.2 Baso % (Auto) 0.1 Immature Gran # (Auto) 0.11 H Neut # (Auto) 24.42 H Lymph # (Auto) 0.83 L Hinds # (Auto) 1.80 H Eos # (Auto) 0.05 Baso # (Auto) 0.04 Segmented Neutrophils 84 H Band Neutrophils 8 H Lymphocytes 2 L Monocytes 6 Basophilic Stippling OCCASIONAL Anisocytosis 1+ Macrocytosis 1+ PT INR PTT (Actin FS) Specimen Type Sample Site pH pCO2 pO2 HCO3 Base Excess Oxyhemoglobin ABG O2 Sat (Calculated) ABG O2 Saturation ABG Carboxyhemoglobin ABG Methemoglobin Chip Test A-a O2 Difference Total Hemoglobin Lactate Liter Flow Blood Gas Modality FiO2 % Sodium 137 Potassium 3.9 Chloride 98 Carbon Dioxide 26 Anion Gap 13 BUN 17 Creatinine 1.1 Estimated GFR/1.73 m2 > 60 BUN/Creatinine Ratio 15 Glucose 166 H Calculated Osmolality 279 Calcium 7.9 L Total Bilirubin 0.75 AST 89 H ALT 94 H Alkaline Phosphatase 175 H Creatine Kinase 45 Troponin T Yxm-S-Ahdbifboiao Pept 76 Total Protein 6.5 Albumin 3.2 L Globulin 3.3 Albumin/Globulin Ratio 1.0 Urine Source Urine Color Urine Turbidity Urine pH Ur Specific Eola Urine Protein Ur Glucose (Stick) Ur Ketones (Stick) Urine Blood Urine Nitrite Urine Bilirubin Urobilinogen Dipstick Urine Leukocytes Urine WBC (Auto) Urine RBC (Auto) U Epithel Cells (Auto) Urine Bacteria (Auto) Urine Opiates Screen Ur Oxycodone Screen Ur Methadone, Qual Ur Barbiturates Screen Ur Phencyclidine Scrn Ur Amphetamines Screen U Benzodiazepines Scrn Urine Cocaine Screen U Cannabinoids Screen 01/17/17 01/17/17 01/17/17 19:30 19:30 19:55 WBC RBC Hgb Hct MCV MCH MCHC RDW Std Deviation Plt Count MPV Immature Gran % (Auto) Neut % (Auto) Lymph % (Auto) Hinds % (Auto) Eos % (Auto) Baso % (Auto) Immature Gran # (Auto) Neut # (Auto) Lymph # (Auto) Hinds # (Auto) Eos # (Auto) Baso # (Auto) Segmented Neutrophils Band Neutrophils Lymphocytes Monocytes Basophilic Stippling Anisocytosis Macrocytosis PT 11.9 H INR 1.12 PTT (Actin FS) 26.3 Specimen Type Sample Site pH pCO2 pO2 HCO3 Base Excess Oxyhemoglobin ABG O2 Sat (Calculated) ABG O2 Saturation ABG Carboxyhemoglobin ABG Methemoglobin Chip Test A-a O2 Difference Total Hemoglobin Lactate Liter Flow Blood Gas Modality FiO2 % Sodium Potassium Chloride Carbon Dioxide Anion Gap BUN Creatinine Estimated GFR/1.73 m2 BUN/Creatinine Ratio Glucose Calculated Osmolality Calcium Total Bilirubin AST ALT Alkaline Phosphatase Creatine Kinase Troponin T < 0.010 Men-B-Jlripjtsqly Pept Total Protein Albumin Globulin Albumin/Globulin Ratio Urine Source CATH Urine Color YELLOW Urine Turbidity CLEAR Urine pH 5.5 Ur Specific Eola 1.024 Urine Protein NEGATIVE Ur Glucose (Stick) NEGATIVE Ur Ketones (Stick) NEGATIVE Urine Blood NEGATIVE Urine Nitrite NEGATIVE Urine Bilirubin NEGATIVE Urobilinogen Dipstick 3 A Urine Leukocytes NEGATIVE Urine WBC (Auto) <10 Urine RBC (Auto) <10 U Epithel Cells (Auto) <10 Urine Bacteria (Auto) NEGATIVE Urine Opiates Screen Ur Oxycodone Screen Ur Methadone, Qual Ur Barbiturates Screen Ur Phencyclidine Scrn Ur Amphetamines Screen U Benzodiazepines Scrn Urine Cocaine Screen U Cannabinoids Screen 01/17/17 01/17/17 19:55 20:10 WBC RBC Hgb Hct MCV MCH MCHC RDW Std Deviation Plt Count MPV Immature Gran % (Auto) Neut % (Auto) Lymph % (Auto) Hinds % (Auto) Eos % (Auto) Baso % (Auto) Immature Gran # (Auto) Neut # (Auto) Lymph # (Auto) Hinds # (Auto) Eos # (Auto) Baso # (Auto) Segmented Neutrophils Band Neutrophils Lymphocytes Monocytes Basophilic Stippling Anisocytosis Macrocytosis PT INR PTT (Actin FS) Specimen Type ARTERIAL Sample Site L BRACHIAL pH 7.36 pCO2 49 H pO2 250 H HCO3 26.0 Base Excess 1.4 Oxyhemoglobin 96.2 ABG O2 Sat (Calculated) 19.9 ABG O2 Saturation 100.8 H ABG Carboxyhemoglobin 3.00 H ABG Methemoglobin 1.6 H Chip Test YES A-a O2 Difference 402.0 Total Hemoglobin 14.3 Lactate 1.70 Liter Flow 15.0 Blood Gas Modality NRB FiO2 % 100.0 Sodium Potassium Chloride Carbon Dioxide Anion Gap BUN Creatinine Estimated GFR/1.73 m2 BUN/Creatinine Ratio Glucose Calculated Osmolality Calcium Total Bilirubin AST ALT Alkaline Phosphatase Creatine Kinase Troponin T Zjd-D-Bthbuoadftr Pept Total Protein Albumin Globulin Albumin/Globulin Ratio Urine Source Urine Color Urine Turbidity Urine pH Ur Specific Eola Urine Protein Ur Glucose (Stick) Ur Ketones (Stick) Urine Blood Urine Nitrite Urine Bilirubin Urobilinogen Dipstick Urine Leukocytes Urine WBC (Auto) Urine RBC (Auto) U Epithel Cells (Auto) Urine Bacteria (Auto) Urine Opiates Screen NONE DETECTED Ur Oxycodone Screen NONE DETECTED Ur Methadone, Qual NONE DETECTED Ur Barbiturates Screen NONE DETECTED Ur Phencyclidine Scrn NONE DETECTED Ur Amphetamines Screen NONE DETECTED U Benzodiazepines Scrn PRESUMPTIVE POSITIVE A Urine Cocaine Screen PRESUMPTIVE POSITIVE A U Cannabinoids Screen NONE DETECTED - REASSESSMENT Reassessment #1 Time Reassessed: 21:40 Status: improving (Pt has increased responsiveness, but is still hypotensive (93 /60) and tachycardic (125); Pt is able to drink water) - EKG 1 Time of EKG reading by physician:: 19:22 EKG Read and Signed by:: Minor Jacobson EKG Interpretation (*Must complete 3 of following elements*): Abnormal (Low voltage QRS) Rate: 136 Rhythm: ST with fusion complexes - XRAY 1 XRAY: Bilateral XRAY Study: Chest Impression: See EMR Report Comparison with other Films: changes noted (Chenged since 01/14/2017) XRAY Interpretation: KHALIF pneumonia - CT/MRI 1 CT Study: Head Impression: See EMR Report (Atrophic changes; No visible acute process; No hemorrhage) CT Results: See report - CONSULTS/PCP/HOSPITALIST Notification #1 *Consult/PCP/Hospitalist*: Dr. Archer (Hospitalist) Time Discussed: 21:18 Consult Disposition: Admit Departure - Departure Time of Disposition Order: 21:19 Disposition: ADMITTED INPATIENT 09 Certified Medical Emergency: Emergent Condition: Stable Attestation - Scribe Verification/Attestation Scribe:: Rajan Reeves Acting as Scribe for:: Minor Jacobson Scribe documention review:: This chart was documented by a scribe and accurately reflects the service the provider performed and the decisions made by the provider.
[2017-01-17] MEDS ORDERED: NS 1,000 ML IV ONE ×2 (20:07→21:53)
[2017-01-17 20:10] LABS: BASO% 0.1 % (0.0-0.8); EOS# 0.05 X1000 (0.0-0.7); EOS% 0.2 % (0.0-10.0); HEMATOCRIT 41.3 % (42.0-52.0); HEMOGLOBIN 13.9 g/dL (14.0-18.0); IMM GRAN# 0.11 X1000 (0.0-0.04); IMM GRAN% 0.4 % (0.0-0.5); LYMPH# 0.83 X1000 (1.2-3.4); MANUAL DIFF NEEDED? YES; MCH 34.7 PG (27-31); MCHC 33.7 g/dL (33-37); MONO% 6.6 % (1.7-9.3); MPV 10.4 FL (7.4-10.4); NEUT% 89.7 % (42.2-75.2); PLT 209 X1000 (130-400); RBC 4.01 XMIL (4.7-6.1)
[2017-01-17 20:16] LABS: URINE CULTURE NEEDED? NO; URINE MICRO REVIEW NEEDED? NO; URINE SOURCE CATH
[2017-01-17 20:17] LABS: INR 1.12; PROTIME 11.9 Seconds (9.2-11.7); PTT 26.3 Seconds (22.0-36.0)
[2017-01-17 20:17] LABS: ALLEN TEST YES; BE 1.4 mmoll (-3.0-3.0); BLOOD TYPE ARTERIAL; DRAW SITE L BRACHIAL; METHB 1.6 % (0.0-1.5); MODALITY NRB; O2(CT) 19.9 mL/dL (15.0-23.0); PCO2(98.6) 49 mmHg (35-45); PO2(98.6) 250 mmHg (60-100); SAMPLE BLOOD; SAO2 100.8 % (95.0-100.0); THB 14.3 g/dL (11.5-17.4); pH(98.6) 7.36 (7.35-7.45)
[2017-01-17 20:22] LABS: BILIRUBIN URINE NEGATIVE (NEGATIVE); BLOOD URINE NEGATIVE (NEGATIVE); COLOR YELLOW; GLUCOSE URINE NEGATIVE (NEGATIVE); LEUKOCYTES URINE NEGATIVE (NEGATIVE); NITRITE URINE NEGATIVE (NEGATIVE); PH URINE 5.5; PROTEIN URINE NEGATIVE (NEGATIVE); SP GRAVITY URINE 1.024; TURBIDITY URINE CLEAR (CLEAR); UROBILINOGEN URINE 3 mg/dL (NORMAL)
[2017-01-17 20:23] LABS: UR EPITHELIAL CELLS <10 /HPF (<10); URINE BACTERIA NEGATIVE /HPF; URINE RBC <10 /HPF (<10); URINE WBC <10 /HPF (<10)
[2017-01-17 20:31] LABS: AGAP 13; ALBUMIN 3.2 g/dL (3.5-5.0); ALKALINE PHOSPHATASE 175 U/L (32-122); BUN 17 mg/dL (8-22); CALCIUM 7.9 mg/dL (8.8-10.2); CHLORIDE 98 mmol/L (98-107); CK PROFILE 45 U/L (24-204); COSMO 279; GOT 89 U/L (10-34); GPT 94 U/L (10-44); POTASSIUM 3.9 mmol/L (3.5-5.1); SODIUM 137 mmol/L (136-145); TCO2 26 mmol/L (25-35); TOTAL BILIRUBIN 0.75 mg/dL (0.20-1.00); TOTAL PROTEIN 6.5 g/dL (6.3-8.3)
[2017-01-17 20:32] LABS: UR AMPHETAMINES QUAL NONE DETECTED (NONE DETECT); UR BARBITUATES QUAL NONE DETECTED (NONE DETECT); UR BENZODIAZEPIN QUAL PRESUMPTIVE POSITIVE (NONE DETECT); UR CANNABINOIDS QUAL NONE DETECTED (NONE DETECT); UR COCAINE QUAL PRESUMPTIVE POSITIVE (NONE DETECT); UR METHADONE QUAL NONE DETECTED (NONE DETECT); UR OPIATES QUAL NONE DETECTED (NONE DETECT); UR OXYCODONE QUAL NONE DETECTED (NONE DETECT); UR PCP QUAL NONE DETECTED (NONE DETECT)
[2017-01-17 21:12] LABS: BANDS 8 % (0-1); LYMPHS 2 % (21-51); MONO 6 % (1-9)
[2017-01-17] MEDS ORDERED: ZOSYN 3.375 GM/NS 50 ML IV ONE (21:18)
[2017-01-17] MEDS ORDERED: NS 1,000 ML ONE (21:39)
--- NOTE | 2017-01-17 21:54 | Diag Imaging Result Document ---
PROCEDURE NAME: HEAD W/O CONTRAST - 01/17/2017 CT BRAIN WITHOUT CONTRAST: COMPARISON: 01/03/2017. FINDINGS: No parenchymal hemorrhage. No epidural or subdural hematoma. No subarachnoid hemorrhage. There is diffuse atrophy. No mass identified on this noncontrasted exam. No hydrocephalus. No sinus opacification. IMPRESSION: 1. No hemorrhage. 2. Atrophy. A preliminary report was given at 7:54 p.m.
--- NOTE | 2017-01-17 23:20 | HISTORY AND PHYSICAL ---
PRIMARY CARE PROVIDER: Farzana Martinez, nurse practitioner. CHIEF COMPLAINT: Mental status changes. HISTORY OF PRESENTING ILLNESS: A 56-year-old male with a history of COPD, chronic alcoholism, hypertension who was just discharged from the hospital about 3 days ago after being treated for pneumonia and alcohol withdrawal presented to emergency department with confusion and mental status changes. Patient apparently was severely altered as per ER physician and it seemed that on imaging his pneumonia has worsened. Due to his presenting symptoms, it was thought that patient would need hospitalization for further management. At the time of my examination patient had denied having any chest pain or any nausea, vomiting, however he is a poor historian. PAST MEDICAL HISTORY: Includes COPD, seizure disorder, hypertension, chronic alcoholism. PAST SURGICAL HISTORY: Bilateral knee surgery. ALLERGIES: No known drug allergies. CURRENT MEDICATIONS: As listed in MAR. SOCIAL HISTORY: Is a former smoker. History of alcohol abuse. History of illicit drug use. Is found to have cocaine on his UDS. FAMILY HISTORY: No history of coronary disease. REVIEW OF SYSTEMS: Limited due to his mental status changes. PHYSICAL EXAMINATION: GENERAL: Ill looking appearing male, is dishevelled, is in some mild respiratory distress. VITAL SIGNS: Temperature 99.7 degrees, pulse 135, respirations 25, blood pressure 88/60. HEENT: Atraumatic, normocephalic. Pupils were somewhat constricted earlier. NECK: No masses. CHEST: Bibasilar rales. CARDIOVASCULAR: Tachycardic. ABDOMEN: Soft. Positive bowel sounds. EXTREMITIES: No edema. NEURO: He is awake, alert, oriented x1. : No bladder distention. SKIN: Warm. LABORATORIES AND STUDIES: WBCs 27.25, hemoglobin 13.9, hematocrit 41.3, platelets 209,000. Sodium 137, potassium 3.9, chloride 98, CO2 of 26, BUN is 17, creatinine is 1.1, glucose 166, AST is 89, ALT 94, alkaline phosphatase 175. Toxicology shows cocaine positive and benzodiazepines positive. ASSESSMENT: A 56-year-old male with a history of chronic alcoholism, seizure disorder, hypertension, chronic obstructive pulmonary disease who had just been discharged from the hospital about 3 days ago to [facility] presented again to emergency department with mental status changes. Patient will need hospitalization for further management. 1. Altered mental status. Etiology multifactorial. 2. Chronic alcoholism. 3. Pneumonia seemed to have worsened. 4. Transaminitis secondary to his alcoholism. 5. Cocaine abuse. PLAN: 1. We will admit patient to medical floor telemetry. 2. Continue with neuro checks. 3. Give patient banana bag and thiamine. 4. We will start patient on IV antibiotics. 5. We will check abdominal ultrasound. 6. We will put patient on DVT prophylaxis with SCDs. 7. Continue follow and reassess.
[2017-01-17] MEDS ORDERED: DUONEB (A & A) INH SCH (23:30)
[2017-01-17] MEDS ORDERED: M.V.I.-12 10 ML, FOLIC ACID 1 MG, MAGNESIUM SULFATE 1 GM, THIAMINE 100 MG in NS 1,000 ML IV ONE (23:42)
[2017-01-17] MEDS ORDERED: LEVAQUIN 750 MG/D5W 150 ML IV SCH (23:42)
[2017-01-18] MEDS: NS 1,000 ML IV SCH ×2 (00:04→11:39)
[2017-01-18] MEDS ORDERED: LASIX IV ONE (02:53)
[2017-01-18 06:16] LABS: BASO% 0.1 % (0.0-0.8); EOS# 0.02 X1000 (0.0-0.7); EOS% 0.1 % (0.0-10.0); HEMATOCRIT 36.7 % (42.0-52.0); HEMOGLOBIN 11.7 g/dL (14.0-18.0); IMM GRAN# 0.09 X1000 (0.0-0.04); IMM GRAN% 0.4 % (0.0-0.5); LYMPH# 1.68 X1000 (1.2-3.4); LYMPH% 7.7 % (20.5-51.1); MANUAL DIFF NEEDED? YES; MCH 33.7 PG (27-31); MCHC 31.9 g/dL (33-37); MCV 105.8 FL (81-99); MONO# 1.28 X1000 (0.11-0.59); MONO% 5.9 % (1.7-9.3); MPV 10.3 FL (7.4-10.4); NEUT% 85.8 % (42.2-75.2); PLT 141 X1000 (130-400); RBC 3.47 XMIL (4.7-6.1)
[2017-01-18 06:30] LABS: BANDS 2 % (0-1); LYMPHS 2 % (21-51); MONO 4 % (1-9)
[2017-01-18 06:41] LABS: AGAP 9; BUN 15 mg/dL (8-22); CALCIUM 7.7 mg/dL (8.8-10.2); CHLORIDE 101 mmol/L (98-107); COSMO 279; POTASSIUM 3.6 mmol/L (3.5-5.1); SODIUM 138 mmol/L (136-145); TCO2 28 mmol/L (25-35)
--- NOTE | 2017-01-18 06:55 | Diag Imaging Result Document ---
PROCEDURE NAME: CHEST-PORTABLE - 01/17/2017 PORTABLE CHEST: COMPARISON: 01/14/2017. FINDINGS: The lungs are well expanded. The heart is not enlarged. The vessels are not distended. I believe there are small patchy infiltrates in the mid left lung. There are old bilateral rib fractures. No pleural effusion is identified. IMPRESSION: I suspect there is a small infiltrate in the upper and mid left lung. Follow up PA and lateral recommended.
[2017-01-18] MEDS ORDERED: ZOSYN 3.375 GM/NS 50 ML IV SCH (09:00)
[2017-01-18] MEDS ORDERED: VANCOMYCIN IV PER PHARMACY MISC SCH (09:00)
--- NOTE | 2017-01-18 10:57 | Diag Imaging Result Document ---
PROCEDURE NAME: CT THORAX W/O CONTRAST - 01/18/2017 CT CHEST WITHOUT CONTRAST: COMPARISON: Compared to 01/04/2017. TECHNIQUE: Dose-reduction protocol. FINDINGS: Trace left effusion. No right-sided effusion. No thoracic aortic aneurysm. Moderate atherosclerosis including the coronary arteries. The heart is not enlarged. There are several calcified right hilar lymph nodes. There are mildly enlarged noncalcified mediastinal lymph nodes. Interval worsening in the multifocal patchy infiltrates bilaterally. Several of these are associated with ectatic bronchi. There is bronchial wall thickening. Bronchiectasis is noted in the left lower lobe. There are several old healed rib fractures. The noncalcified left lower lobe nodule actually is more difficult to see on the current exam due to adjacent infiltrates. No significant interval change in the findings in the upper abdomen. IMPRESSION: Overall worsening in the multifocal bilateral patchy infiltrates.
[2017-01-18] MEDS ORDERED: VANCOMYCIN IV ONE (11:00)
[2017-01-18] MEDS ORDERED: NS IV ONE (11:00)
[2017-01-18] MEDS: PAXIL PO SCH (11:38)
[2017-01-18] MEDS: FOLIC ACID PO SCH (11:39)
--- NOTE | 2017-01-18 14:51 | PROGRESS NOTE ---
DATE: 01/18/2017 SUBJECTIVE: Patient reports feeling fine. Looks short of breath. Denies any fever or chills. Denies any chest pain. OBJECTIVE: Vital Signs: Temperature 98.2 degrees, heart rate 92, respiratory rate 20, blood pressure 103/57, O2 saturation 100% on 4 L nasal cannula. General Examination: This is a chronically ill-looking, frail and disheveled 56-year-old male, lying in bed, in no acute distress. HEENT: Head is normocephalic and atraumatic. Anicteric sclerae and pale conjunctivae. Mucous membranes dry. Neck: Supple. No JVD noted. No carotid bruits. No lymphadenopathy. No thyromegaly. Cardiovascular: S1 and S2 heard. No murmurs , gallops, or rubs. Regular rate and rhythm. Respiratory: Decreased breath sounds globally with wheezing both pulmonary luo. Patient is not using any accessory muscles or having work of breathing. Abdomen: Soft, nontender to palpation. Bowel sounds present. No organomegaly. Extremities: No clubbing, cyanosis, or edema. Peripheral pulses present in both legs. Neurological: Patient is alert although is a little bit sleepy. Patient moves 4 extremities. LABORATORY DATA: White cell count 21.72, hemoglobin 11.7, hematocrit 36.7. Platelets 141,000. BMP unremarkable. UDS positive for cocaine and benzodiazepines. CT of the chest showed overall worsening of the multifocal bilateral patchy infiltrates. ASSESSMENT AND PLAN: 1. Altered mental status. 2. Worsening pneumonia. 3. Alcohol abuse. 4. Polysubstance abuse. 5. Physical deconditioning. PLAN: Patient was admitted to the hospital at this time, because of altered mental status and white cell count was elevated and a chest x-ray confirmed the pneumonia that he had been in the hospital before was getting worse. At this point, we are going to start with those broad-spectrum antibiotic with vancomycin. Consult Dr. Florez and see if there is anything else that we can do for this patient from his perspective. The patient is still using drugs. We will keep an eye on that while he is in the hospital. We prefer not to use any opiate as medication for pain control, but we can use Tylenol and Toradol. For chronic alcoholism, the patient had not been checked for alcohol levels yesterday which is pertinent because that should be included as a part of the evaluation. We checked this morning and it was negative. At this point, we are keeping him here in the hospital. KOBY
[2017-01-18] MEDS: ZOSYN 4.5 GM/NS 100 ML IV SCH ×2 (15:35→21:50)
--- NOTE | 2017-01-18 17:11 | CONSULTATION ---
DATE OF CONSULTATION: 01/18/2017 CONCLUSION: The patient is an alcoholic. He comes to the hospital with an altered mental status and bilateral pulmonary infiltrates. Most likely this is due to aspiration. It should be noted that on today's CT scan, the patient's infiltrates are worse than when the patient came in and had a chest x-ray performed. 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 Also I think it reflects that the radiologic picture of pneumonia lags behind the clinical course of the illness. The patient's white count is coming down. He is not having fever. Therefore, even though the CT scan shows more infiltrates today, I think the patient actually is doing better for the reasons I mentioned above. RECOMMENDATIONS: I agree with staying on the 2 antibiotics the patient is on, namely vancomycin and Zosyn. I have increased the dose of Zosyn to 4.5 g IV every 6 hours. DISCUSSION: The patient is unable provide a history. No family member is present. The history was taken from a review of the chart. The patient was admitted to the hospital with an altered mental status. He was found to have a white count of 21,720 today. Yesterday the white count was 27,250. Today the patient's hemoglobin is 11.7, the platelet count is a 141,000. Blood gases show a pH of 7.36, a PO2 of 215, a pCO2 of 49, creatinine 0.8. All liver function studies are elevated. Urinalysis shows white cells and bacteria. CT scan of the chest as mentioned above, shows worsened multifocal patchy infiltrates. The patient's drug screen was positive for benzodiazepine and cocaine. Blood cultures are pending. A sputum culture has not been able to be obtained. PAST MEDICAL HISTORY: Positive for COPD, seizure disorder, hypertension, chronic alcoholism. The patient at one time did smoke cigarettes. SURGICAL HISTORY: Positive for bilateral knee surgery. ALLERGIES: The patient has no known drug allergies. HOME MEDICATIONS: 1. Folic acid. 2. Anoro Ellipta. 3. Tramadol. 4. Paxil. 5. Medrol Dosepak. 6. Folic acid. 7. Lioresal. 8. ProAir. FAMILY HISTORY: Negative for coronary artery disease. SOCIAL HISTORY: He is a former smoker. He is an alcoholic. He has a history of illicit drug abuse and his drug screen on admission shows he still is using drugs. PHYSICAL EXAMINATION: Vital Signs: Temperature is 98.2 degrees, pulse 93, respirations 20, blood pressure 106/63. Height and weight: Patient's is 5 feet 11 inches tall, weighs 149 pounds. General: This is a chronically ill-appearing, middle-aged male. He is lethargic. He did not talk. He did follow requests to move his extremities. Head, eyes, ears, nose and throat: He did open his mouth, but it was not very wide and all I could see where a few teeth. No drainage noted from the nose or ears. Neck: No meningismus. Thorax: Slight increased AP diameter of the chest. Lungs: There were scattered bilateral rhonchi. Cardiovascular: Heart rate was regular. Peripheral pulses were palpable. Abdomen: Appeared to be slightly distended. It was soft and did not appear to be tender. Neurologic: As mentioned above, the patient was very lethargic. He did follow some requests to move his extremities. There was no tremor. I was unable to test his memory or to get a review of systems from the patient. Integument: No rash noted. Thank you for the consult.
[2017-01-19] MEDS: ZOSYN 4.5 GM/NS 100 ML IV SCH ×4 (03:57→22:13)
[2017-01-19] MEDS: VANCOMYCIN 2 GM in NS 500 ML IV SCH ×2 (05:10→22:12)
--- NOTE | 2017-01-19 08:47 | PROGRESS NOTE ---
DATE: 01/19/2017 CONCLUSION: The patient is an alcoholic. He is admitted to the hospital with bilateral pneumonia that could well be due to aspiration. MEDICATIONS: The patient is on high dose of Zosyn and vancomycin. PHYSICAL EXAMINATION: Vital Signs: Temperature is 98.3, pulse 85. Respirations 20. Blood pressure 123/70. General: This is a chronically ill-appearing, middle-aged male. He is lethargic. Neuro: The patient is arousable. He did move his extremities to request. Lungs: There were some bibasilar rales. Cardiovascular: Heart rate is regular. Abdomen: Soft and nontender. LAB AND X-RAY: There is no new lab or x-ray for today. ASSESSMENT AND PLAN: 1. The patient is an alcoholic. 2. He has pneumonia. The plan is to continue treatment with the current antibiotics. COMORBIDITY: He is an alcoholic. He has COPD, seizure disorder. Also, at one time did smoke cigarettes.
[2017-01-19] MEDS: PAXIL PO SCH (09:45)
[2017-01-19] MEDS: FOLIC ACID PO SCH (09:45)
[2017-01-19 13:09] LABS: BASO% 0.2 % (0.0-0.8); EOS% 0.9 % (0.0-10.0); HEMATOCRIT 38.4 % (42.0-52.0); HEMOGLOBIN 12.3 g/dL (14.0-18.0); IMM GRAN# 0.02 X1000 (0.0-0.04); IMM GRAN% 0.2 % (0.0-0.5); LYMPH# 1.37 X1000 (1.2-3.4); LYMPH% 12.9 % (20.5-51.1); MANUAL DIFF NEEDED? YES; MCH 34.1 PG (27-31); MCV 106.4 FL (81-99); MONO# 0.77 X1000 (0.11-0.59); MONO% 7.3 % (1.7-9.3); MPV 10.3 FL (7.4-10.4); NEUT% 78.5 % (42.2-75.2); PLT 144 X1000 (130-400); RBC 3.61 XMIL (4.7-6.1)
[2017-01-19 13:31] LABS: BANDS 1 % (0-1); LYMPHS 14 % (21-51); MONO 4 % (1-9)
[2017-01-19] MEDS: NS 1,000 ML IV SCH ×2 (14:58)
--- NOTE | 2017-01-19 16:57 | PROGRESS NOTE ---
DATE: 01/19/2017 SUBJECTIVE: Patient reports feeling fine. Less short of breath according to him. No fever or chills. No chest pain noted. OBJECTIVE: Vital Signs: Temperature 98.3 degrees, heart rate 85, respiratory rate 20, blood pressure 123/70, O2 saturation 100% 2 L nasal cannula. General Examination: This is a chronically ill-looking, disheveled, and frail, 56-year-old male, lying in bed, in no acute distress. HEENT: Head is normocephalic, atraumatic. Anicteric sclerae and pale conjunctivae. Mucous membranes dry. Neck: Supple. No JVD noted. No carotid bruits. No lymphadenopathy. No thyromegaly. Cardiovascular: S1, S2 heard. No murmurs, gallops, or rubs. Regular rate and rhythm. Respiratory: Decreased breath sounds globally with wheezing in both pulmonary luo, less in comparing with yesterday. Patient is not using any accessory muscles or having work of breathing. Abdomen: Soft, nontender to palpation. Bowel sounds present. No organomegaly. Extremities: No clubbing, cyanosis, or edema. Peripheral pulses present in both legs. Neurological: Patient is alert. The patient moves 4 extremities. LABORATORY DATA: White cell count 10.61, hemoglobin 12.3, hematocrit 38.4, platelets 144,000. ASSESSMENT: 1. Altered mental status. 2. Worsening pneumonia. 3. Alcohol abuse. 4. Polysubstance abuse including marijuana and cocaine. 5. Physical deconditioning. PLAN: The patient was admitted to the hospital because he was found altered and having work of breathing. Here he was found to have worsening pneumonia that now is getting better. White cell count is almost back to normal and altered mental status has almost resolved. At this time, I think this patient can probably be discharged between tomorrow and the day after. I think this patient needs to go to the [facility] because this patient is homeless. I think tomorrow we can switch to oral medications, in this it will be Levaquin for 10 days. Definitely he is advised about stop drinking alcohol, using tobacco and marijuana. Physical therapy will evaluate this patient to let us know where we are.
[2017-01-19] MEDS ORDERED: OFIRMEV 1000 MG/ISOTONIC SOLN 100 ML IV PRN (17:33)
[2017-01-20] MEDS: ZOSYN 4.5 GM/NS 100 ML IV SCH ×4 (04:12→22:05)
[2017-01-20 06:43] LABS: BASO% 0.4 % (0.0-0.8); EOS# 0.12 X1000 (0.0-0.7); EOS% 1.6 % (0.0-10.0); HEMATOCRIT 37.2 % (42.0-52.0); HEMOGLOBIN 11.8 g/dL (14.0-18.0); IMM GRAN# 0.02 X1000 (0.0-0.04); IMM GRAN% 0.3 % (0.0-0.5); LYMPH# 1.53 X1000 (1.2-3.4); MANUAL DIFF NEEDED? NO; MCH 33.6 PG (27-31); MCHC 31.7 g/dL (33-37); MONO# 0.63 X1000 (0.11-0.59); MONO% 8.6 % (1.7-9.3); MPV 10.1 FL (7.4-10.4); NEUT% 68.1 % (42.2-75.2); PLT 146 X1000 (130-400); RBC 3.51 XMIL (4.7-6.1)
[2017-01-20 07:20] LABS: AGAP 10; BUN 7 mg/dL (8-22); CALCIUM 8.6 mg/dL (8.8-10.2); CHLORIDE 105 mmol/L (98-107); COSMO 286; POTASSIUM 3.5 mmol/L (3.5-5.1); SODIUM 144 mmol/L (136-145); TCO2 29 mmol/L (25-35)
--- NOTE | 2017-01-20 08:44 | PROGRESS NOTE ---
DATE: 01/20/2017 PRESENT ILLNESS: The patient is being treated now for pneumonia. Most likely, this is aspiration in nature. MEDICATIONS: Patient is on vancomycin and high-dose Zosyn. PHYSICAL EXAMINATION: Vital Signs: Temperature is 97.6 degrees, pulse 81, respirations 20, blood pressure 139/84. General: This is a somewhat ill-appearing, middle-aged male. He looks better today than he did yesterday. He is more awake. He is talking. Lungs: Clear to auscultation. Cardiovascular: Regular heart rate. Abdomen: Soft and nontender. LAB AND X-RAY: There is no new x-ray today. The patient's CBC shows a white count of 7290, hemoglobin 11.8, and platelet count 146,000. Creatinine is 0.6. GFR is greater than 60. ASSESSMENT AND PLAN: I plan to continue with the patient's current antibiotics. To me, he appears as a patient that would not be a candidate to be treated at home, in view of the fact that he is an alcoholic and most likely he would not take his medicine regularly. My plan then would be to continue with the patient's current antibiotics in the hospital. I am going to go ahead today also and get a noncontrasted CT scan. Patient's comorbidities include alcoholism, chronic obstructive pulmonary disease and seizure disorder. The patient also did earlier smoke cigarettes.
--- NOTE | 2017-01-20 09:39 | Diag Imaging Result Document ---
PROCEDURE NAME: CT THORAX W/O CONTRAST - 01/20/2017 CT CHEST WITHOUT CONTRAST: TECHNIQUE: Dose-reduction protocol. COMPARISON: Compared to 01/18/2017. FINDINGS: There is a small left pleural effusion measuring 1.4 cm posteriorly and inferiorly in the midline and trace right fluid. These are larger than on the prior exam. No cardiomegaly. No thoracic aortic aneurysm. Moderate atherosclerosis including the coronary arteries. No change in the mildly prominent mediastinal lymph nodes. There are calcified right hilar lymph nodes and there are scattered calcified granuloma. There are multiple old fractures. Overall worsening in the multifocal patchy bilateral infiltrates. No change in the bronchiectasis. Atelectasis or fibrosis in the left base. Limited images through the upper abdomen reveal fatty infiltration of the liver and hepatomegaly. IMPRESSION: Further worsening in the multifocal bilateral patchy infiltrates.
[2017-01-20] MEDS: PAXIL PO SCH (09:47)
[2017-01-20] MEDS: FOLIC ACID PO SCH (09:47)
--- NOTE | 2017-01-20 12:56 | PROGRESS NOTE ---
DATE: 01/20/2017 SUBJECTIVE: The patient reports feeling fine. Less shortness of breath. No fever or chills. OBJECTIVE: Vital Signs: Temperature 98.1 degrees, heart rate 84, respiratory rate 20, blood pressure 140/89, O2 saturation 99% on room air. General Examination: This is a chronically ill- looking, disheveled, and frail, 56-year-old male, lying in bed, in no acute distress. HEENT: Head is normocephalic, atraumatic. Anicteric sclerae. Pale conjunctivae. Mucous membranes dry. Neck: Supple. No JVD noted. No carotid bruits. No lymphadenopathy. No thyromegaly. Cardiovascular: S1, S2 heard. No murmurs, gallops, or rubs. Regular rate and rhythm. Respiratory: Decreased breath sounds globally with wheezing in both pulmonary luo but less in comparing with yesterday. Patient is not using any accessory muscles or having work of breathing. Abdomen: Soft, nontender to palpation. Bowel sounds present. No organomegaly. Extremities: No clubbing, cyanosis, or edema. Peripheral pulses present in both legs. Neurological: Patient is alert and oriented x3. Able to move 4 extremities. Cranial nerves 2 through 12 grossly normal. LABORATORY DATA: White cell count is 7.29, hemoglobin 11.8, hematocrit 37.2, platelets 146,000. BMP unremarkable. ASSESSMENT: 1. Altered mental status. 2. Worsening aspiration pneumonia. 3. Alcohol abuse. 4. Polysubstance abuse including marijuana and cocaine. 5. Physical deconditioning. PLAN: The patient is admitted to the hospital because he was altered, having work of breathing. All those conditions have been improved. Right now he is able to breathe by herself, not needing any oxygen supplementation. The patient is on breathing treatments. White cell count from 25,000 is back to normal today. Patient is on vancomycin and Zosyn. Being follow by Dr. Flroez from [place] who thinks that this patient is not a candidate for any outpatient treatment. Today is day #3 of both antibiotics. I think if physical therapy evaluates this patient and if he is strong enough to be discharged, I guess 2 more days of those broad-spectrum antibiotics should be fine to the infection. He may need to take the probably a few more days of oral antibiotics. Will monitor him closely here in the hospital.
[2017-01-20] MEDS: NS 1,000 ML IV SCH ×2 (16:24→16:26)
[2017-01-20] MEDS: ULTRAM PO PRN ×2 (16:57→22:21)
[2017-01-20] MEDS: VANCOMYCIN 1,600 MG in NS 250 ML IV SCH (18:47)
[2017-01-21] MEDS: NS 1,000 ML IV SCH (03:35)
[2017-01-21] MEDS: ZOSYN 4.5 GM/NS 100 ML IV SCH ×2 (03:36→12:13)
[2017-01-21] MEDS: VANCOMYCIN 1,600 MG in NS 250 ML IV SCH (05:36)
[2017-01-21] MEDS: ULTRAM PO PRN (06:32)
[2017-01-21 07:20] VITALS: BP 131/92
[2017-01-21 07:41] LABS: MANUAL DIFF NEEDED? NO
[2017-01-21 07:47] LABS: BASO% 0.6 % (0.0-0.8); EOS# 0.13 X1000 (0.0-0.7); EOS% 1.9 % (0.0-10.0); HEMATOCRIT 37.3 % (42.0-52.0); HEMOGLOBIN 12.2 g/dL (14.0-18.0); IMM GRAN# 0.02 X1000 (0.0-0.04); IMM GRAN% 0.3 % (0.0-0.5); MCH 33.5 PG (27-31); MCHC 32.7 g/dL (33-37); MCV 102.5 FL (81-99); MONO# 0.62 X1000 (0.11-0.59); MONO% 9.1 % (1.7-9.3); MPV 9.9 FL (7.4-10.4); NEUT% 63.1 % (42.2-75.2); PLT 164 X1000 (130-400); RBC 3.64 XMIL (4.7-6.1)
[2017-01-21 08:14] LABS: AGAP 11; BUN 5 mg/dL (8-22); CHLORIDE 101 mmol/L (98-107); COSMO 276; POTASSIUM 3.1 mmol/L (3.5-5.1); SODIUM 140 mmol/L (136-145); TCO2 28 mmol/L (25-35)
--- NOTE | 2017-01-21 11:10 | PROGRESS NOTE ---
DATE: 01/21/2017 The patient has bilateral pneumonia. Clinically, he has done extremely well. He is off of oxygen. His white count has normalized. His CT scan does show bilateral infiltrates still. I think up part of the fact that the CT scan does not look as good as the patient is doing, clinically, and based on the other parameters already listed above is that there is a radiologic lag behind how the patient is doing radiographically, including the CT scan versus the patient's clinical course. ASSESSMENT/PLAN: The patient is going to a rehab facility today. He is going to be dismissed on a combination of Ceftin 500 mg and doxycycline 100 mg each every 12 hours for 3 weeks. We have requested an appointment for me to see him in the office in 3 weeks at which time I will examine him and also order a chest x-ray to see how his infiltrates are doing.
--- NOTE | 2017-01-21 11:23 | DISCHARGE SUMMARY ---
ADMISSION DATE: 01/17/2017 DISCHARGE DATE: 01/21/2017 CONSULTATION: Dr. Ray Florez. PERTINENT PROCEDURES: 1. Head CT showed no hemorrhage, atrophy. 2. Chest x-ray shows small infiltrates in the upper and mid left lung. 3. Chest CT showed overall worsening in multifocal bilateral patchy infiltrates. 4. Followup chest CT continued to show worsening in the multifocal bilateral patchy infiltrates. DISCHARGE DIAGNOSES: 1. Toxic metabolic encephalopathy, multifactorial, secondary to alcoholism, pneumonia, drug abuse. Head CT was negative. Patient is alert and oriented x3. 2. Worsening aspiration pneumonia. Patient placed on intravenous antibiotics. Will be going on oral doxycycline. 3. Alcohol abuse, stable. 4. Polysubstance abuse, including marijuana and cocaine. 5. Physical deconditioning. The patient going to rehabilitation at [facility]. HOSPITAL COURSE: Briefly, Mr. Mueller is a 56-year-old male, who was recently admitted to our service with seizure disorder, COPD exacerbation, as well as alcohol abuse. On last admission, patient did want to seek some type of inpatient rehabilitation, however with this type of insurance he was denied inpatient. However, he was given referrals to state facility for outpatient treatment. After speaking with the patient, he agreed to go to the [facility] in [place] where he could get treatment. However, his sister came in, took him home and was trying to get him into a rehab facility here in [place]. So, the patient never made it to the [facility] after discharge. Unfortunately, the patient came back with worsening pneumonia and a urine drug screen positive for cocaine. The patient was readmitted to the medical floor with neurologic checks, banana bags and thiamine, started on broad-spectrum antibiotics. Dr. Ray Florez was consulted, who felt that his pneumonia was likely due to aspiration. The patient's white count continued to come down. Again, the patient's confusion and mental status changes have resolved. Patient is alert and oriented x3. Patient has remained afebrile since admission. He is appropriate to be discharged to [facility] today. DISCHARGE PHYSICAL EXAMINATION: Vital signs: Temperature is 98.3 degrees, heart rate 82, respirations 18, blood pressure 131/92, O2 is 97% on 2 L nasal cannula. White count on admission was 27.25; white count on day of discharge is 6.81. DISCHARGE DIET: Regular. DISCHARGE MEDICATIONS: 1. ProAir inhaler 8.5 g inhaled p.r.n. 2. Folic acid 1 mg p.o. daily. 3. Anoro Ellipta 62.5, 25 mcg inhaler, 1 puff inhaled RT daily. 4. Ultram 50 mg p.o. q. 4 hours p.r.n. pain. 5. Paxil 20 mg p.o. daily. 6. Doxycycline 100 mg p.o. b.i.d. 7. Cefuroxime 500 mg p.o. b.i.d. FOLLOWUP: The patient is being discharged to [facility]. The patient will need to obtain a primary care physician and follow up after rehabilitation. Patient to return to the ED for any worsening of symptoms. Again, he has been thoroughly educated on EtOH abuse and dependence, as well as tobacco abuse and use with cessation education and the means to quit, along with polysubstance abuse with medications as well as illicit drugs. TIME SPENT: Discharge time greater than 30 minutes. Dictated by WADE Tineo for Rex Hess MD
[2017-01-21] MEDS: PAXIL PO SCH (12:13)
[2017-01-21] MEDS: FOLIC ACID PO SCH (12:13)
== END 2017-01-21 14:29 | DRG 177 ==
LOC: ED 19:31 → 3N 23:13 → OBSVTOIN 23:13
PROVIDERS: ATTEND Internal Medicine
DX: J69.0 Pneumonitis due to inhalation of food and vomit (principal); G92 Toxic encephalopathy; I10 Essential (primary) hypertension; J44.9 Chronic obstructive pulmonary disease, unspecified; G40.909 Epilepsy, unspecified, not intractable, without status epilepticus; F10.20 Alcohol dependence, uncomplicated; F12.10 Cannabis abuse, uncomplicated; F14.10 Cocaine abuse, uncomplicated; Z87.891 Personal history of nicotine dependence; Z59.0 Homelessness; Z79.899 Other long term (current) drug therapy; Z79.52 Long term (current) use of systemic steroids
CPT/HCPCS: 51702; 70450; 71010; 71250; 80048; 80053; 80202; 81001; 82550; 82805; 82948; 83880; 84484; 85025; 85610; 85730; 87040; 94640; 94761; 94799; 96361; 96365; G0480; J0131; J1940; J2543; J3370; J3411; J3475; J7030; J7040; J7050; 80320; 80324; 80345; 80346; 80349; 80353; 80358; 80361; 80365; 83992

== ENCOUNTER 2017-01-24 11:47 | Emergency (ER) ==
[2017-01-24 12:07] VITALS: BP 131/76
[2017-01-24] MEDS ORDERED: DUONEB (A & A) INH ONE (12:59)
[2017-01-24] MEDS ORDERED: SOLU-MEDROL IV ONE (12:59)
--- NOTE | 2017-01-24 13:21 | PROVIDER DOCUMENTATION ---
HPI-Respiratory General - General Chief Complaint: Shortness of Breath Stated Complaint: SOB/REQ RX Time Seen by Provider: 01/24/17 12:33 Allergies/Adverse Reactions: Patient Allergies Allergy/AdvReac Type Severity Reaction Status Date / Time No Known Allergies Allergy Verified 01/24/17 13:05 Home Medications: Home Medication List Medication Instructions Recorded Confirmed Last Taken Type Albuterol Sulfate [Proair Hfa] 8.5 gm IH PRN PRN #1 hfa.aer.ad 01/14/1701/22/17 Rx Folic Acid 1 mg PO DAILY #30 tablet 01/14/17 01/24/17 01/22/17 Rx Umeclidinium/Vilanterol [Anoro 1 puff INH RTDAILY #1 inhaler 01/14/17 01/24/17 01/22/17 Rx Ellipta 62.5-25 Mcg INH] Cefuroxime Axetil [Cefuroxime] 500 mg PO BID #28 tablet 01/21/17 01/24/17 Rx Doxycycline 100 mg PO BID #28 capsule 01/21/17 01/24/17 01/22/17 Rx Paroxetine HCl [Paxil] 20 mg PO DAILY #60 tablet 01/21/17 01/24/17 01/22/17 Rx Tramadol [Ultram] 50 mg PO Q4H PRN PRN #60 tablet 01/21/17 01/24/17 01/22/17 Rx - History of Present Illness-Resp Nature of Presenting Problem: A 56 y/o M who was recently sent to rehab and who left rehab yesterday as he did not like it , he came in today as he ran out of medications, he is feeling SOB cough and wheezing which is progressing, he drove a bicycle to ER, denies CP /n/v/d/ogden/abdominal pain, no acute distress Review of Systems - Adult - REVIEW OF SYSTEMS - ADULT Constitutional: reports: no symptoms reported Eyes: reports: no symptoms reported Ears, Nose, Mouth & Throat: reports: no symptoms reported Cardiovascular: reports: no symptoms reported Respiratory: reports: see HPI Gastrointestinal: reports: no symptoms reported Genitourinary: reports: no symptoms reported Musculoskeletal: reports: no symptoms reported Integumentary: reports: no symptoms reported Neurological: reports: no symptoms reported Psychiatric: reports: no symptoms reported Endocrine: reports: no symptoms reported Hematologic/Lymphatic: reports: no symptoms reported Allergic/Immunologic: reports: no symptoms reported All Other Systems: Reviewed and Negative Past History - Adult - PAST MEDICAL HISTORY-ADULT Review of Records: reports: Old Records Reviewed, Nursing Assessment Review, Medications Reviewed, Social history reviewed & non-contributory. Major Childhood Illnesses: reports: denies history Cardiovascular: reports: denies history Respiratory: reports: COPD Gastrointestinal: reports: denies history Obstetrical/Gynecological: reports: denies history Genitourinary: reports: denies history Musculoskeletal: reports: denies history Neurological: reports: denies history Endocrine/Immune: reports: denies history Other Conditions: reports: denies history - PRIOR SURGERIES/PROCEDURES Surgical/Procedure History: reports: orthopedic (extremity), joint replacement - PRIOR HOSPITALIZATIONS Prior Hospitalizations: reports: for other non-related - IMMUNIZATION STATUS Childhood Immunizations: See Nurse Assessment Flu Vaccine: See Nurse Assessment - FAMILY HISTORY Family History: reviewed, not pertinent Physical Exam-General - PHYSICAL EXAM-ADULT Initial Vital Signs Reviewed: Yes - CONSTITUTIONAL General Appearance: appears well, alert, no apparent distress - EYES Eyes: PERRL/EOMI, pink conjunctivae, fundi clear, no AV nicking - HEAD, EARS, NOSE, MOUTH & THROAT HENMT: normocephalic/atraumatic, moist mucous membranes, normal ENT inspection, TMs normal, pharynx normal - NECK Neck: non-tender, full range of motion - RESPIRATORY Respiratory: chest non-tender, no pleuratic chest pain, no respiratory distress , no accessory muscle use, wheezing - CARDIOVASCULAR Cardiovascular: normal peripheral pulses, regular rate, rhythm, no edema, no gallop, no JVD, no murmur - GASTROINTESTINAL (ABDOMEN) Abdominal Exam: normal bowel sounds, non tender, soft - GENITOURINARY Male Genitalia: deferred - MUSCULOSKELETAL Back Exam: normal inspection, no CVA tenderness, no vertebral tenderness Extremity: normal range of motion, non-tender, normal gait - 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, grossly normal, no motor/sensory deficits - PSYCHIATRIC Psych/Mental Status: normal mood/affect, normal thought content, normal thought process, oriented x 3 Progress - PLAN OF CARE/RESULTS Progress/Plan/Lab Results: Laboratory Tests 03/11/17 03/11/17 03/11/17 13:25 13:25 13:25 WBC 6.68 RBC 3.98 L Hgb 13.3 L Hct 41.1 L MCV 103.3 H MCH 33.4 H MCHC 32.4 L RDW Std Deviation 14.2 Plt Count 185 MPV 10.0 Neut % (Auto) 54.7 Lymph % (Auto) 29.9 [place] % (Auto) 12.3 H Eos % (Auto) 2.5 Baso % (Auto) 0.6 Neut # (Auto) 3.65 Lymph # (Auto) 2.00 [place] # (Auto) 0.82 H Eos # (Auto) 0.17 Baso # (Auto) 0.04 PT INR PTT (Actin FS) D-Dimer 0.87 H Sodium 140 Potassium 3.3 L Chloride 100 Carbon Dioxide 28 Anion Gap 12 BUN 8 Creatinine 0.7 Estimated GFR/1.73 m2 > 60 BUN/Creatinine Ratio 11 Glucose 93 Calculated Osmolality 277 Calcium 9.0 Magnesium 1.7 Total Bilirubin 0.87 AST 59 H ALT 43 Alkaline Phosphatase 166 H Creatine Kinase 42 Troponin T Okk-H-Ovdgxcafdyc Pept Total Protein 7.1 Albumin 3.0 L Globulin 4.1 Albumin/Globulin Ratio 0.7 Plasma/Serum Ethyl Alc 01/24/17 01/24/17 01/24/17 13:25 13:25 13:25 WBC RBC Hgb Hct MCV MCH MCHC RDW Std Deviation Plt Count MPV Neut % (Auto) Lymph % (Auto) [place] % (Auto) Eos % (Auto) Baso % (Auto) Neut # (Auto) Lymph # (Auto) [place] # (Auto) Eos # (Auto) Baso # (Auto) PT 11.5 INR 1.13 PTT (Actin FS) 27.2 D-Dimer Sodium Potassium Chloride Carbon Dioxide Anion Gap BUN Creatinine Estimated GFR/1.73 m2 BUN/Creatinine Ratio Glucose Calculated Osmolality Calcium Magnesium Total Bilirubin AST ALT Alkaline Phosphatase Creatine Kinase Troponin T < 0.010 Tki-X-Xmhhmyleeyk Pept 63 Total Protein Albumin Globulin Albumin/Globulin Ratio Plasma/Serum Ethyl Alc 01/24/17 13:25 WBC RBC Hgb Hct MCV MCH MCHC RDW Std Deviation Plt Count MPV Neut % (Auto) Lymph % (Auto) [place] % (Auto) Eos % (Auto) Baso % (Auto) Neut # (Auto) Lymph # (Auto) [place] # (Auto) Eos # (Auto) Baso # (Auto) PT INR PTT (Actin FS) D-Dimer Sodium Potassium Chloride Carbon Dioxide Anion Gap BUN Creatinine Estimated GFR/1.73 m2 BUN/Creatinine Ratio Glucose Calculated Osmolality Calcium Magnesium Total Bilirubin AST ALT Alkaline Phosphatase Creatine Kinase Troponin T Mfp-J-Xwidftdbxjt Pept Total Protein Albumin Globulin Albumin/Globulin Ratio Plasma/Serum Ethyl Alc Orders Category Date Time Status Cardiac Monitoring DIRECTED Care 01/24/17 12:09 Active Saline Loc NOW Care 01/24/17 12:09 Active ANGIOGRAM/PULMONARY ARTERIES [CT] Stat Exams 01/24/17 15:35 Ordered CHEST-2 VIEWS [RAD] Stat Exams 01/24/17 12:09 Taken CBC WITH ELECTRONIC DIFF [HEME] Stat Lab 01/24/17 13:25 Completed CK PROFILE [SP CHEM] Stat Lab 01/24/17 13:25 Completed COMPREHENSIVE METABOLIC PANEL [CHEM] Stat Lab 01/24/17 13:25 Completed D-DIMER [CHEM] Stat Lab 01/24/17 13:25 Completed ETOH [ALCOHOL BLOOD] Stat Lab 01/24/17 13:25 Completed MAGNESIUM [CHEM] Stat Lab 01/24/17 13:25 Completed PRO B-NATRIURETIC PEPTIDE Stat Lab 01/24/17 13:25 Completed PROTIME WITH INR [COAG] Stat Lab 01/24/17 13:25 Completed PTT [COAG] Stat Lab 01/24/17 13:25 Completed TROPONIN T Stat Lab 01/24/17 13:25 Completed Albuterol 2.5MG/Ipratrop 0.5MG [Duoneb (A & A)] Med 01/24/17 12:59 Discontinued 3 ml INH NOW ONE Methylprednisolone Sod Succ [Solu-Medrol] Med 01/24/17 12:59 Discontinued 125 mg IV NOW ONE Aerosol Treatments Routine Oth 01/24/17 13:00 Completed Aerosol Treatments Stat Oth 01/24/17 13:00 Completed EKG [EKG] Stat Ther 01/24/17 12:09 Ordered Vital Signs Temp Pulse Resp BP Pulse Ox 01/24/17 15:31 92 H 16 99 01/24/17 12:04 97.8 F 101 H 24 131/76 96 No Known Allergies Allergy (Verified 01/24/17 13:05) Albuterol Sulfate [Proair Hfa] 8.5 gm IH PRN PRN #1 hfa.aer.ad 01/14/17 Folic Acid 1 mg PO DAILY #30 tablet 03/01/17 Umeclidinium/Vilanterol [Anoro Ellipta 62.5-25 Mcg INH] 1 puff INH RTDAILY #1 inhaler 01/14/17 Cefuroxime Axetil [Cefuroxime] 500 mg PO BID #28 tablet 01/21/17 Doxycycline 100 mg PO BID #28 capsule 01/21/17 Paroxetine HCl [Paxil] 20 mg PO DAILY #60 tablet 01/21/17 Tramadol [Ultram] 50 mg PO Q4H PRN PRN #60 tablet 01/21/17 Laboratory 01/24/17 01/24/17 01/24/17 13:25 13:25 13:25 WBC RBC Hgb Hct MCV MCH MCHC RDW Std Deviation Plt Count MPV Neut % (Auto) Lymph % (Auto) [place] % (Auto) Eos % (Auto) Baso % (Auto) Neut # (Auto) Lymph # (Auto) [place] # (Auto) Eos # (Auto) Baso # (Auto) PT 11.5 INR 1.13 PTT (Actin FS) 27.2 D-Dimer Sodium Potassium Chloride Carbon Dioxide Anion Gap BUN Creatinine Estimated GFR/1.73 m2 BUN/Creatinine Ratio Glucose Calculated Osmolality Calcium Magnesium Total Bilirubin AST ALT Alkaline Phosphatase Creatine Kinase Troponin T < 0.010 Xqj-I-Ddhydqfgtwp Pept Total Protein Albumin Globulin Albumin/Globulin Ratio Plasma/Serum Ethyl Alc 01/24/17 01/24/17 01/24/17 13:25 13:25 13:25 WBC RBC Hgb Hct MCV MCH MCHC RDW Std Deviation Plt Count MPV Neut % (Auto) Lymph % (Auto) [place] % (Auto) Eos % (Auto) Baso % (Auto) Neut # (Auto) Lymph # (Auto) [place] # (Auto) Eos # (Auto) Baso # (Auto) PT INR PTT (Actin FS) D-Dimer 0.87 H Sodium 140 Potassium 3.3 L Chloride 100 Carbon Dioxide 28 Anion Gap 12 BUN 8 Creatinine 0.7 Estimated GFR/1.73 m2 > 60 BUN/Creatinine Ratio 11 Glucose 93 Calculated Osmolality 277 Calcium 9.0 Magnesium 1.7 Total Bilirubin 0.87 AST 59 H ALT 43 Alkaline Phosphatase 166 H Creatine Kinase 42 Troponin T Pzn-C-Gidlahfqmky Pept 63 Total Protein 7.1 Albumin 3.0 L Globulin 4.1 Albumin/Globulin Ratio 0.7 Plasma/Serum Ethyl Alc 03/11/17 13:25 WBC 6.68 RBC 3.98 L Hgb 13.3 L Hct 41.1 L MCV 103.3 H MCH 33.4 H MCHC 32.4 L RDW Std Deviation 14.2 Plt Count 185 MPV 10.0 Neut % (Auto) 54.7 Lymph % (Auto) 29.9 [place] % (Auto) 12.3 H Eos % (Auto) 2.5 Baso % (Auto) 0.6 Neut # (Auto) 3.65 Lymph # (Auto) 2.00 [place] # (Auto) 0.82 H Eos # (Auto) 0.17 Baso # (Auto) 0.04 PT INR PTT (Actin FS) D-Dimer Sodium Potassium Chloride Carbon Dioxide Anion Gap BUN Creatinine Estimated GFR/1.73 m2 BUN/Creatinine Ratio Glucose Calculated Osmolality Calcium Magnesium Total Bilirubin AST ALT Alkaline Phosphatase Creatine Kinase Troponin T Csx-A-Hhbdthdmxlo Pept Total Protein Albumin Globulin Albumin/Globulin Ratio Plasma/Serum Ethyl Alc - EKG 1 Time of EKG reading by physician:: 15:49 EKG Interpretation (*Must complete 3 of following elements*): Abnormal Comments: 1st degree AV block, prolonged QT changed from previous one Departure - Departure Time of Disposition Order: 15:51 DIAGNOSIS: SOB (shortness of breath), D-dimer, elevated, Abnormal EKG Disposition: [place] [id number] Certified Medical Emergency: Emergent Condition: Stable - Critical Care Note Comments: pt walked up to the door, ripped off his IV and walked away, inspite of explaining his condition could be life threatning
[2017-01-24 13:47] LABS: MANUAL DIFF NEEDED? NO
[2017-01-24 13:56] LABS: BASO% 0.6 % (0.0-0.8); EOS# 0.17 X1000 (0.0-0.7); EOS% 2.5 % (0.0-10.0); HEMATOCRIT 41.1 % (42.0-52.0); HEMOGLOBIN 13.3 g/dL (14.0-18.0); LYMPH% 29.9 % (20.5-51.1); MCH 33.4 PG (27-31); MCHC 32.4 g/dL (33-37); MCV 103.3 FL (81-99); MONO# 0.82 X1000 (0.11-0.59); MONO% 12.3 % (1.7-9.3); NEUT% 54.7 % (42.2-75.2); PLT 185 X1000 (130-400); RBC 3.98 XMIL (4.7-6.1)
[2017-01-24 14:12] LABS: INR 1.13; PROTIME 11.5 Seconds (9.2-11.7); PTT 27.2 Seconds (22.0-36.0)
[2017-01-24 14:13] LABS: AGAP 12; ALKALINE PHOSPHATASE 166 U/L (32-122); BUN 8 mg/dL (8-22); CHLORIDE 100 mmol/L (98-107); CK PROFILE 42 U/L (24-204); COSMO 277; GOT 59 U/L (10-34); GPT 43 U/L (10-44); MAGNESIUM 1.7 mg/dL (1.5-2.7); POTASSIUM 3.3 mmol/L (3.5-5.1); SODIUM 140 mmol/L (136-145); TCO2 28 mmol/L (25-35); TOTAL BILIRUBIN 0.87 mg/dL (0.20-1.00); TOTAL PROTEIN 7.1 g/dL (6.3-8.3)
--- NOTE | 2017-01-24 15:54 | Diag Imaging Result Document ---
PROCEDURE NAME: CHEST-2 VIEWS - 01/24/2017 CHEST, 2 VIEWS: COMPARISON: 01/17/2017. FINDINGS: Heart size is normal. There are old bilateral rib fracture deformities, most prominent on the left. There is apparent mild pulmonary scarring on the left. If there were acute infiltrates on the previous exam, then they appear to have decreased. There is no consolidation, pleural effusion, or pneumothorax identified. IMPRESSION: Old rib fracture deformities, most prominent on the left. There is mild pulmonary scarring on the left. No definite evidence of acute disease.
--- NOTE | 2017-01-26 10:39 | EKG Report ---
Test Performed on : 01/24/2017 12:09:25 PM Test Reason : Chest Pain Blood Pressure : / mmHG Vent. Rate : 092 BPM Atrial Rate : 092 BPM P-R Int : 212 ms QRS Dur : 090 ms QT Int : 422 ms P-R-T Axes : 078 045 075 degrees QTc Int : 521 ms Sinus rhythm. with 1st degree AV block. Low voltage QRS Septal infarct (cited on or before 03-JAN-2017) Prolonged QT Abnormal ECG When compared with ECG of 03-JAN-2017 12:13, IN interval has increased Unconfirmed Result
== END 2017-01-24 15:54 | disposition left against medical advice (07) ==
LOC: ED 11:47
DX: R06.02 Shortness of breath (principal); R79.1 Abnormal coagulation profile; R94.31 Abnormal electrocardiogram [ECG] [EKG]; R06.2 Wheezing; J44.9 Chronic obstructive pulmonary disease, unspecified; Z79.899 Other long term (current) drug therapy; Z96.60 Presence of unspecified orthopedic joint implant
CPT/HCPCS: 71020; 80053; 82550; 83735; 83880; 84484; 85025; 85379; 85610; 85730; 93005; 94640; G0480; J2930; 80320

== ENCOUNTER 2017-03-19 20:41 | Inpatient (IN) ==
[~2017-03-19 20:41] MED LIST: ASPIRIN PO STA
[2017-03-19 21:20] LABS: MANUAL DIFF NEEDED? NO
[2017-03-19 21:23] LABS: BASO% 0.7 % (0.0-0.8); EOS# 0.04 X1000 (0.0-0.7); EOS% 0.4 % (0.0-10.0); HEMATOCRIT 40.4 % (42.0-52.0); HEMOGLOBIN 14.1 g/dL (14.0-18.0); LYMPH# 4.15 X1000 (1.2-3.4); LYMPH% 43.7 % (20.5-51.1); MCH 34.2 PG (27-31); MCHC 34.9 g/dL (33-37); MCV 98.1 FL (81-99); MONO# 1.27 X1000 (0.11-0.59); MONO% 13.4 % (1.7-9.3); MPV 10.1 FL (7.4-10.4); NEUT% 41.8 % (42.2-75.2); PLT 125 X1000 (130-400); RBC 4.12 XMIL (4.7-6.1)
[2017-03-19 21:32] LABS: INR 1.15; PROTIME 12.2 Seconds (9.2-11.7); PTT 29.4 Seconds (22.0-36.0)
[2017-03-19 21:49] LABS: AGAP 14; ALBUMIN 3.7 g/dL (3.5-5.0); ALKALINE PHOSPHATASE 164 U/L (32-122); BUN 9 mg/dL (8-22); CALCIUM 8.6 mg/dL (8.8-10.2); CHLORIDE 93 mmol/L (98-107); COSMO 270; GOT 98 U/L (10-34); GPT 48 U/L (10-44); MAGNESIUM 1.9 mg/dL (1.5-2.7); SODIUM 135 mmol/L (136-145); TCO2 28 mmol/L (25-35); TOTAL BILIRUBIN 1.72 mg/dL (0.20-1.00); TOTAL PROTEIN 7.9 g/dL (6.3-8.3)
[2017-03-19 21:50] LABS: CK PROFILE 652 U/L (24-204)
[2017-03-19 22:04] LABS: ALLEN TEST YES; BE 2.5 mmoll (-3.0-3.0); BLOOD TYPE ARTERIAL; DRAW SITE R RADIAL; METHB 1.8 % (0.0-1.5); O2(CT) 18.4 mL/dL (15.0-23.0); PCO2(98.6) 37 mmHg (35-45); PO2(98.6) 103 mmHg (60-100); SAMPLE BLOOD; SAO2 99.5 % (95.0-100.0); THB 13.7 g/dL (11.5-17.4); pH(98.6) 7.46 (7.35-7.45)
[2017-03-19 22:05] LABS: MODALITY BI PAP
[2017-03-19 22:17] LABS: CK INDEX 0.6 (0.0-2.5); CK-MB 4.04 ng/mL (0.0-5.0)
[2017-03-19] MEDS ORDERED: ROCEPHIN 1 GM/NS 1 GM/50 ML IVPB IV ONE (23:02)
--- NOTE | 2017-03-19 23:10 | PROVIDER DOCUMENTATION ---
This chart was entered by Sapna Vides Scribe, acting as scribe for Jaswinder Muñiz MD. HPI-Respiratory General - General Stated Complaint: Resp. Distress Time Seen by Provider: 03/19/17 20:54 Source: patient Allergies/Adverse Reactions: Patient Allergies Allergy/AdvReac Type Severity Reaction Status Date / Time No Known Allergies Allergy Verified 01/24/17 13:05 Home Medications: Home Medication List Medication Instructions Recorded Confirmed Last Taken Type Albuterol Sulfate [Proair Hfa] 8.5 gm IH PRN PRN #1 hfa.aer.ad 01/14/1701/22/17 Rx Folic Acid 1 mg PO DAILY #30 tablet 01/14/17 03/19/17 03/19/17 07:00 Rx Umeclidinium/Vilanterol [Anoro 1 puff INH RTDAILY #1 inhaler 01/14/17 03/19/17 01/22/17 Rx Ellipta 62.5-25 Mcg INH] Paroxetine HCl [Paxil] 20 mg PO DAILY #60 tablet 01/21/17 03/19/17 01/22/17 Rx - History of Present Illness-Resp Nature of Presenting Problem: 56 year old M presents to the ED with a cc of shortness of breath with an onset of this morning. PT states that he also fell last night and having pain to left chest. Severity in ED: reports: mild Onset/Duration: reports: this morning Timing: reports: still present Current Respiratory Medication Therapy: Initiated see nurses note Associated Symptoms: reports: shortness of breath Similar Symptoms Previously?: No Recently seen or treated by another doctor?: No Review of Systems - Adult - REVIEW OF SYSTEMS - ADULT Constitutional: denies: chills, fever Eyes: reports: no symptoms reported Ears, Nose, Mouth & Throat: reports: no symptoms reported Cardiovascular: denies: chest pain, palpitations Respiratory: reports: shortness of breath. denies: cough Gastrointestinal: denies: nausea, vomiting Genitourinary: reports: no symptoms reported Musculoskeletal: reports: no symptoms reported Integumentary: reports: no symptoms reported Neurological: reports: no symptoms reported Psychiatric: reports: no symptoms reported Endocrine: reports: no symptoms reported Hematologic/Lymphatic: reports: no symptoms reported Allergic/Immunologic: reports: no symptoms reported All Other Systems: Reviewed and Negative Past History - Adult - PAST MEDICAL HISTORY-ADULT Review of Records: reports: Nursing Assessment Review, Medications Reviewed Major Childhood Illnesses: reports: denies history Cardiovascular: reports: denies history Respiratory: reports: COPD Gastrointestinal: reports: denies history Obstetrical/Gynecological: reports: denies history Genitourinary: reports: denies history Musculoskeletal: reports: denies history Neurological: reports: denies history Endocrine/Immune: reports: denies history Other Conditions: reports: denies history - PRIOR SURGERIES/PROCEDURES Surgical/Procedure History: reports: orthopedic (extremity), joint replacement - PRIOR HOSPITALIZATIONS Prior Hospitalizations: reports: for other non-related - IMMUNIZATION STATUS Childhood Immunizations: See Nurse Assessment Flu Vaccine: See Nurse Assessment - FAMILY HISTORY Family History: reviewed, not pertinent - SOCIAL HISTORY Smoking: cigarettes Provider spent 3-5 mins advising pt. on dangers of tobacco.: Discussed manners to quit use, and f/u contacts for add'l counseling. Substance Use: none/never Alcohol Use Frequency: every day Physical Exam-General - PHYSICAL EXAM-ADULT Initial Vital Signs Reviewed: Yes - CONSTITUTIONAL General Appearance: alert, moderate distress - RESPIRATORY Respiratory: respiratory distress (moderate), rales (bilateral bases), rhonchi, wheezing (diffuse), other (tenderness and bruising to left anterior aspect of chest). negative: retractions - CARDIOVASCULAR Cardiovascular: tachycardia - GASTROINTESTINAL (ABDOMEN) Abdominal Exam: non tender, soft - MUSCULOSKELETAL Extremity: normal inspection - SKIN Integumentary: normal color, normal turgor, warm/dry - PSYCHIATRIC Psych/Mental Status: normal mood/affect, normal thought content, normal thought process, oriented x 3 Progress - PLAN OF CARE/RESULTS Progress/Plan/Lab Results: Vital Signs - 8 hr 03/19/17 20:46 Temperature 98.3 F Pulse Rate 120 H Respiratory Rate 24 Blood Pressure 145/88 O2 Sat by Pulse Oximetry 93 L Laboratory Results - last 24 hr 03/19/17 03/19/17 03/19/17 21:15 21:15 21:15 WBC 9.50 RBC 4.12 L Hgb 14.1 Hct 40.4 L MCV 98.1 MCH 34.2 H MCHC 34.9 RDW Std Deviation 14.2 Plt Count 125 L MPV 10.1 Immature Gran % (Auto) 0.0 Neut % (Auto) 41.8 L Lymph % (Auto) 43.7 [place] % (Auto) 13.4 H Eos % (Auto) 0.4 Baso % (Auto) 0.7 Immature Gran # (Auto) 0.00 Neut # (Auto) 3.97 Lymph # (Auto) 4.15 H [place] # (Auto) 1.27 H Eos # (Auto) 0.04 Baso # (Auto) 0.07 PT INR PTT (Actin FS) D-Dimer 5.83 H Specimen Type Sample Site pH pCO2 pO2 HCO3 Base Excess Oxyhemoglobin ABG O2 Sat (Calculated) ABG O2 Saturation ABG Carboxyhemoglobin ABG Methemoglobin Chip Test A-a O2 Difference Total Hemoglobin Lactate Blood Gas Modality Vent Mode FiO2 % Inspiratory BiPAP Expiratory BiPAP Sodium 135 L Potassium 4.0 Chloride 93 L Carbon Dioxide 28 Anion Gap 14 BUN 9 Creatinine 0.6 L Estimated GFR/1.73 m2 > 60 BUN/Creatinine Ratio 15 Glucose 116 H Calculated Osmolality 270 Calcium 8.6 L Magnesium 1.9 Total Bilirubin 1.72 H AST 98 H ALT 48 H Alkaline Phosphatase 164 H Creatine Kinase 652 H Creatine Kinase Index 0.6 CK-MB (CK-2) 4.04 Troponin T Zzn-N-Nwzwmanbyil Pept Total Protein 7.9 Albumin 3.7 Globulin 4.2 Albumin/Globulin Ratio 0.9 03/19/17 03/19/17 03/19/17 21:15 21:15 21:15 WBC RBC Hgb Hct MCV MCH MCHC RDW Std Deviation Plt Count MPV Immature Gran % (Auto) Neut % (Auto) Lymph % (Auto) [place] % (Auto) Eos % (Auto) Baso % (Auto) Immature Gran # (Auto) Neut # (Auto) Lymph # (Auto) [place] # (Auto) Eos # (Auto) Baso # (Auto) PT 12.2 H INR 1.15 PTT (Actin FS) 29.4 D-Dimer Specimen Type Sample Site pH pCO2 pO2 HCO3 Base Excess Oxyhemoglobin ABG O2 Sat (Calculated) ABG O2 Saturation ABG Carboxyhemoglobin ABG Methemoglobin Chip Test A-a O2 Difference Total Hemoglobin Lactate Blood Gas Modality Vent Mode FiO2 % Inspiratory BiPAP Expiratory BiPAP Sodium Potassium Chloride Carbon Dioxide Anion Gap BUN Creatinine Estimated GFR/1.73 m2 BUN/Creatinine Ratio Glucose Calculated Osmolality Calcium Magnesium Total Bilirubin AST ALT Alkaline Phosphatase Creatine Kinase Creatine Kinase Index CK-MB (CK-2) Troponin T 0.045 Naj-Q-Diddycwdhfr Pept 41 Total Protein Albumin Globulin Albumin/Globulin Ratio 03/19/17 22:00 WBC RBC Hgb Hct MCV MCH MCHC RDW Std Deviation Plt Count MPV Immature Gran % (Auto) Neut % (Auto) Lymph % (Auto) [place] % (Auto) Eos % (Auto) Baso % (Auto) Immature Gran # (Auto) Neut # (Auto) Lymph # (Auto) [place] # (Auto) Eos # (Auto) Baso # (Auto) PT INR PTT (Actin FS) D-Dimer Specimen Type ARTERIAL Sample Site R RADIAL pH 7.46 H pCO2 37 pO2 103 H HCO3 26.8 H Base Excess 2.5 Oxyhemoglobin 95.1 ABG O2 Sat (Calculated) 18.4 ABG O2 Saturation 99.5 ABG Carboxyhemoglobin 2.60 H ABG Methemoglobin 1.8 H Chip Test YES A-a O2 Difference 279.0 Total Hemoglobin 13.7 Lactate 2.30 H Blood Gas Modality BI PAP Vent Mode BIPAP FiO2 % 60.0 Inspiratory BiPAP 12.0 Expiratory BiPAP 5.0 Sodium Potassium Chloride Carbon Dioxide Anion Gap BUN Creatinine Estimated GFR/1.73 m2 BUN/Creatinine Ratio Glucose Calculated Osmolality Calcium Magnesium Total Bilirubin AST ALT Alkaline Phosphatase Creatine Kinase Creatine Kinase Index CK-MB (CK-2) Troponin T Aeh-T-Chyhzfstwbb Pept Total Protein Albumin Globulin Albumin/Globulin Ratio Orders Category Date Time Status Cardiac Monitoring DIRECTED Care 03/19/17 20:41 Active Oxygen Therapy- ED Nursing DIRECTED Care 03/19/17 20:41 Active Saline Loc NOW Care 03/19/17 20:41 Active CHEST-1 VIEW [RAD] Stat Exams 03/19/17 20:41 Taken ABG [RESP] Routine Lab 03/19/17 22:00 Completed BLOOD CULTURE [BLDCUL] Stat Lab 03/19/17 23:01 Uncollected CBC WITH ELECTRONIC DIFF [HEME] Stat Lab 03/19/17 21:15 Completed CK PROFILE [SP CHEM] Stat Lab 03/19/17 21:15 Completed COMPREHENSIVE METABOLIC PANEL [CHEM] Stat Lab 03/19/17 21:15 Completed D-DIMER [CHEM] Stat Lab 03/19/17 21:15 Completed MAGNESIUM [CHEM] Stat Lab 03/19/17 21:15 Completed PRO B-NATRIURETIC PEPTIDE Stat Lab 03/19/17 21:15 Completed PROTIME WITH INR [COAG] Stat Lab 03/19/17 21:15 Completed PTT [COAG] Stat Lab 03/19/17 21:15 Completed TROPONIN T Stat Lab 03/19/17 21:15 Completed Aspirin Med 03/19/17 20:41 Discontinued 325 mg PO STAT STA CefTRIAXONE 1 GM/NS [Rocephin 1 gm/Ns] Med 03/19/17 23:02 Active 1 gm in 50 ml IV NOW EKG [EKG] Stat Ther 03/19/17 20:41 Ordered Transfer/Admit Order [TRANSFER] Routine Transfer 03/19/17 23:07 Ordered Result Diagrams: 03/19/17 21:15 03/19/17 21:15 - EKG 1 Time of EKG reading by physician:: 20:42 EKG Read and Signed by:: Jaswinder Muñiz EKG Interpretation (*Must complete 3 of following elements*): Normal Rate: 127 Rhythm: sinus tachycardia Hunter: normal - XRAY 1 XRAY Study: Chest Impression: Abnormal XRAY Interpretation: left lower lobe pneumonia with pleural effusion:Dr. Muñiz (ER MD) Departure - Departure Time of Disposition Decision: 23:09 DIAGNOSIS: Pneumonia Disposition: ADMITTED INPATIENT 09 Certified Medical Emergency: Emergent Condition: Stable Referrals and Follow-Ups: None,PCP [Primary Care Provider] - - Critical Care Note This patient required my direct & personal management of CC.: Yes Attestation - Physician/ JAYME Attestation Patient care was provided by Advanced Practice Provider:: Yes Advanced Practice Provider documentation review:: The Mid-level provider documentation, treatment plan and medical decision making was reviewed by the physician who agrees with all treatment and medical decision making by the MLP. The physician spent face to face time with patient:: Yes Advanced Practice Provider documentation review:: The physician spent face to face time with this patient and agrees with all MLP documentation, treatment, and medical decision making by the MLP. See provider notes for further information. This chart was documented by the indicated scribe, (Sapna Vides Scribe) and accurately reflects the services I performed and decisions made by me, Jaswinder Muñiz MD, as attested by the provider's signature.
[2017-03-19] MEDS ORDERED: SOLU-MEDROL IV ONE (23:37)
[2017-03-20] MEDS ORDERED: MOTRIN PO PRN (00:33)
[2017-03-20] MEDS ORDERED: SODIUM CHLORIDE 0.9% INJ ONE (00:33)
[2017-03-20] MEDS ORDERED: POTASSIUM CHLORIDE 10 MEQ in NS 1,000 ML IV ONE (00:33)
[2017-03-20] MEDS ORDERED: TYLENOL PO PRN (00:33)
[2017-03-20] MEDS ORDERED: FLAGYL 750 MG in NS 150 ML IV SCH (00:33)
[2017-03-20] MEDS: PEPCID IV SCH ×2 (01:17→12:52)
[2017-03-20] MEDS: LOVENOX SUBQ SCH (01:18)
[2017-03-20] MEDS: MORPHINE IV PRN ×2 (01:18→21:23)
--- NOTE | 2017-03-20 03:32 | HISTORY AND PHYSICAL ---
REASON FOR ADMISSION: One-week history of progressive shortness of breath. HISTORY OF PRESENT ILLNESS: Mr. Reymundo Mueller is a 56-year-old male with longstanding history of COPD, chronic alcoholism, hypertension, who was discharged from our facility about a month ago for pneumonia treatment. He comes in today complaining of progressive shortness of breath with cough and fever of 2 days duration. Also complains of left-sided chest pain which occurred after he fell 2 days ago and landed on the left side of his chest. The pain is for most part, pleuritic with no anginal equivalent. He says over the last 2 days he has been coughing up whitish sputum with streaks of blood but recently this turned yellow. No leg swelling. No PND or orthopnea. No contact with anybody with chronic cough. No overt weight loss. No extremity redness or pain. REVIEW OF SYSTEMS: No GI or or neurological complaints at this point in time. A 12 system review otherwise is negative. ALLERGIES: None. MEDICATIONS: He is supposed to be on: 1. Anoro inhalers 1 puff daily. 2. Paxil 20 mg daily. 3. Folic acid 1 mg daily. 4. ProAir 2 puffs q.6h p.r.n. pain. LAB WORK: White count 9000, hemoglobin and hematocrit 14 and 44, platelets 125,000 with normal differential. Sodium is 135, glucose 116, total bilirubin is 1.72, AST 98, ALT 48, alkaline phosphatase 164 with CK of 637. Troponin 0.045. ProBNP 41. D-dimer 5.83. PT 12.2, INR 1.15. Blood gas 7.46, pCO2 37, PO2 103 this was on BiPAP at FiO2 of 60%. Chest film reviewed by me shows emphysematous lung with obscuring of the left costophrenic border and possibility of a retrocardiac infiltrate. EKG showed normal sinus rhythm, sinus tachycardia with questionable Q- waves in the septal leads. SOCIAL HISTORY: Patient still half a pack of cigarettes a day and drinks a six-pack of beer a day. Last drink was earlier this morning. No illicit drug use. Lives with some friends. FAMILY HISTORY: No heart disease, diabetes or cancer in first-degree relatives. PAST SURGICAL HISTORY: He has had bilateral knee surgery. PHYSICAL EXAMINATION: GENERAL: A disheveled thin middle-aged man, who appears older than stated age. He is alert and oriented to person, place and time with normal mood and affect. Mild distress from his breathing. VITAL SIGNS: Blood pressure 145/80, heart rate is 120, temp is 98, respirations 24, with 93% on 8 L. HEENT: Head is normocephalic, atraumatic. Eyes, EOMI, he is anicteric and not pale. ENT exam is grossly unremarkable and within normal limits. Normal oropharyngeal mucosa. No cyanosis. NECK: Supple. No JVD or carotid bruit. No thyromegaly. CHEST: Significant decreased entry in the left lung field (which I believe could be due to splinting from possible left rib fractures). He has scattered wheezes and decreased also decreased entry in the right lung field. He has a few bibasilar crepitations more the right than the left. CARDIOVASCULAR: First, second and third sounds heard. No gallops, rubs. Rhythm is regular. ABDOMEN: Slightly protuberant, soft, nontender, no hepatosplenomegaly. Bowel sounds are hyperactive. RECTAL: Examination deferred. EXTREMITIES: No edema, clubbing or cyanosis. Pulses distant and both extremities have good volume and symmetrical. No tremors. NEUROLOGIC: No focal deficits. SKIN: Grossly intact. No breakdown lesions or erythema. MUSCULAR EXAM: Grossly normal. ASSESSMENT: 1. Left lower lobe pneumonia (?) aspiration risk. 2. Acute respiratory failure secondary to #1 and underlying chronic obstructive pulmonary disease. 3. Chronic obstructive pulmonary disease with mild exacerbation. 4. Chronic alcohol abuse. 5. Tobacco use. 6. Alcohol withdrawal seizure. PLAN: At this time, continue Rocephin and start patient on Flagyl. We will get a 2-view x-ray tomorrow to get a better view of the possible retrocardiac infiltrate noted on the portable x-ray. Patient's D-dimer was elevated, but I am not convinced that he has a PE because his history and exam are more consistent with a pneumonia; this despite having a normal white count. We will continue bronchodilators and the aforementioned antibiotics. We will have a stand by p.r.n. sedatives/anxiolytic agents should the patient show any signs of withdrawal. Smoking and alcohol cessation were reiterated. Patient says he will quit but I suspect this seems to be more of lip service based on his body language. We will control his pain with scheduled Tylenol and Motrin. We will put him on PPIs to prevent gastric dyspepsia from the Motrin and steroids. Prednisone was started because of mild to moderate COPD exacerbation. We will also give patient opioids sparingly. This is to prevent patient from splinting his left lung which could perpetuate his pneumonia in that area. Patient will be admitted to the step-down unit and put on continuous BiPAP treatment. cc: Layla Boswell MD
[2017-03-20] MEDS: DUONEB (A & A) INH SCH ×7 (04:31→22:31)
--- NOTE | 2017-03-20 05:16 | EKG Report ---
Test Performed on : 03/19/2017 8:42:06 PM Test Reason : SOB Blood Pressure : / mmHG Vent. Rate : 127 BPM Atrial Rate : 127 BPM P-R Int : 156 ms QRS Dur : 098 ms QT Int : 314 ms P-R-T Axes : 083 038 075 degrees QTc Int : 456 ms Sinus tachycardia. Otherwise normal ECG When compared with ECG of 24-JAN-2017 12:09, [place] interval has decreased Unconfirmed Result
[2017-03-20 06:42] LABS: BASO% 0.2 % (0.0-0.8); HEMATOCRIT 39.8 % (42.0-52.0); HEMOGLOBIN 13.3 g/dL (14.0-18.0); LYMPH# 0.49 X1000 (1.2-3.4); LYMPH% 9.4 % (20.5-51.1); MANUAL DIFF NEEDED? YES; MCH 33.4 PG (27-31); MCHC 33.4 g/dL (33-37); MONO# 0.26 X1000 (0.11-0.59); MPV 10.7 FL (7.4-10.4); NEUT% 85.4 % (42.2-75.2); PLT 89 X1000 (130-400); RBC 3.98 XMIL (4.7-6.1)
[2017-03-20] MEDS ORDERED: PNEUMOVAX 23 IM ONE (06:51)
[2017-03-20 07:01] LABS: AGAP 12; BUN 10 mg/dL (8-22); CALCIUM 8.3 mg/dL (8.8-10.2); CHLORIDE 97 mmol/L (98-107); COSMO 270; POTASSIUM 4.3 mmol/L (3.5-5.1); SODIUM 134 mmol/L (136-145); TCO2 25 mmol/L (25-35)
--- NOTE | 2017-03-20 07:01 | Diag Imaging Result Document ---
PROCEDURE NAME: CHEST-1 VIEW - 03/19/2017 PORTABLE CHEST: COMPARISON: 01/24/2017. FINDINGS: Old injury to the left chest with at least 1 old right rib fracture. There is volume loss to the left lung with hyperexpansion of the right lung. There is left pleural thickening and effusion. I believe there are infiltrates in the left base as well as atelectasis. IMPRESSION: Small left effusion with basilar atelectasis and infiltrates. Followup PA and lateral recommended.
[2017-03-20 07:05] LABS: MAGNESIUM 1.8 mg/dL (1.5-2.7)
[2017-03-20 07:27] LABS: LYMPHS 14 % (21-51)
[2017-03-20 09:23] LABS: VITAMIN D 25 HYDROXY 15.9 NG/DL
[2017-03-20] MEDS: PREDNISONE PO SCH (09:37)
[2017-03-20] MEDS: PAXIL PO SCH (09:37)
[2017-03-20] MEDS: FOLIC ACID PO SCH (09:37)
[2017-03-20] MEDS: THIAMINE IM SCH (09:44)
[2017-03-20] MEDS: ZITHROMAX 500 MG/NS 500 MG/250 ML IVPB IV SCH (09:50)
[2017-03-20] MEDS: ROCEPHIN 1 GM/NS 1 GM/50 ML IVPB IV SCH (11:28)
[2017-03-20] MEDS: FLAGYL PO SCH ×2 (12:52→21:23)
--- NOTE | 2017-03-20 17:19 | PROGRESS NOTE ---
DATE: 03/20/2017 SUBJECTIVE: Today Mr. Mueller referred to be doing okay, did not actually have any major complaint except abdominal discomfort and some cough. OBJECTIVE: Vital signs: Blood pressure is 147/87, pulse of 103, respirations 19, temperature is 98.2 degrees. General: Mr. Mueller 56-year-old male. He was in bed. Did not seem to be in any cardiopulmonary distress. HEENT: Mucosa is pink and moist. Anicteric. Acyanotic. Neck: Supple. Chest: Good air entry bilateral. There is diffuse bilateral end expiratory wheezes with some bibasilar crepitations. On the chest wall exam is there is some exquisite tenderness to the left lateral aspect of the cage. Cardiovascular: Regular rate and rhythm. Abdomen: Soft. Mildly tender in the right upper quadrant. OPTIC FIBRE DRAWER: Patient is alert and oriented x4. There is no focal neurological deficit. LABORATORY DATA: WBC is 5.20, hemoglobin is 13.3, platelet count of 89,000. Chemistry. Sodium is 134, potassium is 4.3, chloride is 97, bicarb is 25, vitamin D level is 15.9 which is low. A chest a chest x-ray yesterday shows small left effusion with bibasilar atelectasis and infiltrates. ASSESSMENT: 1. Right lower lobe pneumonia with possible aspirations. 2. History of chronic obstructive pulmonary disease with mild exacerbation. 3. Chronic alcohol abuse. 4. Tobacco abuse. 5. Multiple falls likely due to intoxications. 6. Vitamin D deficiency. 7. Macrocytosis secondary to liver disease. 8. Alcoholic hepatitis. 9. Steatohepatitis secondary to alcohol with imaging studies consistent of fatty liver. Patient is currently on ceftriaxone, metronidazole, prednisone and inhalers. We are going to add azithromycin also to cover for possible atypical organisms. cc: MD KOBY King
[2017-03-20 21:59] LABS: ALBUMIN 3.1 g/dL (3.5-5.0); DIRECT BILIRUBIN 0.4 mg/dL (0.00-0.20); TOTAL BILIRUBIN 1.42 mg/dL (0.20-1.00); TOTAL PROTEIN 6.8 g/dL (6.3-8.3)
[2017-03-21] MEDS: LOVENOX SUBQ SCH (00:20)
[2017-03-21] MEDS: PEPCID IV SCH ×2 (00:20→12:55)
[2017-03-21] MEDS: DUONEB (A & A) INH SCH ×6 (03:44→23:17)
[2017-03-21] MEDS: MORPHINE IV PRN ×3 (05:55→22:59)
[2017-03-21] MEDS: FLAGYL PO SCH ×2 (05:56→12:55)
[2017-03-21 07:03] LABS: MANUAL DIFF NEEDED? NO
[2017-03-21 07:11] LABS: BASO% 0.2 % (0.0-0.8); EOS# 0.01 X1000 (0.0-0.7); EOS% 0.2 % (0.0-10.0); HEMATOCRIT 36.6 % (42.0-52.0); LYMPH# 0.83 X1000 (1.2-3.4); MCHC 32.8 g/dL (33-37); MCV 100.5 FL (81-99); MONO# 0.31 X1000 (0.11-0.59); MONO% 5.6 % (1.7-9.3); PLT 83 X1000 (130-400); RBC 3.64 XMIL (4.7-6.1)
[2017-03-21 07:36] LABS: AGAP 11; BUN 11 mg/dL (8-22); CALCIUM 7.9 mg/dL (8.8-10.2); CHLORIDE 95 mmol/L (98-107); COSMO 266; MAGNESIUM 1.7 mg/dL (1.5-2.7); POTASSIUM 3.3 mmol/L (3.5-5.1); SODIUM 133 mmol/L (136-145); TCO2 27 mmol/L (25-35)
--- NOTE | 2017-03-21 08:53 | Diag Imaging Result Document ---
PROCEDURE NAME: CHEST-2 VIEWS - 03/21/2017 SEATED AP AND LATERAL RADIOGRAPH OF THE CHEST: COMPARISON: 03/19/2017. FINDINGS: Left basilar infiltrate with likely a component of atelectasis and a small effusion is essentially stable as compared to the previous study. There has been development of mild atelectasis and/or infiltrate at the right lung base. No other new consolidations are identified. Cardiac silhouette is stable. IMPRESSION: Stable left infiltrate and development of a mild infiltrate versus atelectasis at the right lung base.
[2017-03-21] MEDS ORDERED: POTASSIUM PHOSPHATE 20 MMOL in NS 250 ML IV ONE (08:54)
[2017-03-21] MEDS ORDERED: MAGNESIUM SULFATE 2 GM/S.W.I. 2 GM/50 ML IVPB IV ONE (08:55)
[2017-03-21] MEDS: PAXIL PO SCH (09:55)
[2017-03-21] MEDS: ZITHROMAX 500 MG/NS 500 MG/250 ML IVPB IV SCH (09:55)
[2017-03-21] MEDS: FOLIC ACID PO SCH (09:55)
[2017-03-21] MEDS: THIAMINE IM SCH (09:55)
[2017-03-21] MEDS: PREDNISONE PO SCH (09:55)
[2017-03-21] MEDS ORDERED: SAMSCA PO ONE (12:26)
[2017-03-21] MEDS: NEUTRA-PHOS PO SCH ×4 (12:56→23:00)
--- NOTE | 2017-03-21 13:36 | PROGRESS NOTE ---
DATE: 03/21/2017 SUBJECTIVE: Today, Mr. Mueller referred to be doing a little better. He continues to have some residual shortness of breath and significant left-sided chest pain. OBJECTIVE: Vital signs: Blood pressure is 131/75, pulse of 83, respirations 19, temperature is 98.0 degrees. General: Mr. Mueller is a 56-year-old male. He is in bed, in mild respiratory distress. HEENT: Mucosa pink and moist. Anicteric. Acyanotic. Neck: Supple. Chest: Air entry is bilaterally reduced. There is diffuse bilateral end expiratory wheezing and bibasilar crepitations. Cardiovascular: Regular rate and rhythm. No murmurs. No rubs. No gallops. Abdomen: Soft. Bowel sounds are present. There is old midline surgical scar. Extremities: No pedal edema. Central Nervous System: Patient is alert and oriented x4. Musculoskeletal: There is tenderness to the left aspect of the chest wall laterally. LABORATORY DATA: WBC is 5.55, hemoglobin is 12.0, platelet count 83,000. Chemistry is reviewed. Sodium is 133, potassium is 3.3, chloride 95, bicarbonate 27. Patient's calcium is 7.9, phosphorus is 1.8, and magnesium is 1.7. Vitamin D is 15.9, which is remarkably low. A chest x-ray which was done this morning shows stable right infiltrate and development of mid infiltrate versus atelectasis at the right lung base. ASSESSMENT: 1. Multifocal pneumonia, suspicious for aspiration. The patient is on antibiotics; however, continues to have significant shortness of breath and chest discomfort. We are going to do a CT scan of the lungs to get a better idea of what is going on. 2. History of chronic obstructive pulmonary disease with mild exacerbation. We will continue with aggressive pulmonary toilet, steroids, and IV antibiotics. 3. Chronic alcohol and tobacco abuse. Patient has been counseled. 4. Multiple falls at home, likely due to ethanol abuse/intoxication. 5. Vitamin D deficiency. We will replace. 6. Microcytosis. B12 and folate are normal. TSH is normal. I think this is secondary to liver disease. 7. Transaminitis, likely due to alcohol-induced steatohepatitis. 8. Hyponatremia with urine studies consistent with syndrome of inappropriate antidiuretic hormone secretion. I will give the patient a dose of Samsca today, and follow up with his laboratories in the morning. 9. Hypocalcemia and hypophosphatemia. Likely, all these micronutrient deficiencies are due to underlying alcohol abuse. We will replace all of them. Today, Mr. Mueller is doing relatively fine. He continues to have significant chest findings. We are going to do a CT scan of the lungs to make sure there is no other underlying disease. Patient will continue with the ceftriaxone, azithromycin, and metronidazole. Will also continue with the steroids and adequate pulmonary toilet. cc: Avtar Caceres MD
--- NOTE | 2017-03-21 14:29 | Diag Imaging Result Document ---
PROCEDURE NAME: CT THORAX W/CONTRAST - 03/21/2017 CT THORAX WITH IV CONTRAST: COMPARISON: 01/20/2017. FINDINGS: There are mixed changes as compared to the previous CT. There has been significant improvement in the patchy consolidations in the upper lobes seen on the previous study. However, consolidations in the right middle lobe and left lower lobe at the base have worsened. There is a moderate sized left pleural effusion that has increased in size during the interval, and it has become partially loculated. Atelectasis at the left lung base has worsened. There is also now a trace right effusion with minimal right basilar atelectasis. There is bronchiectasis at the left lung base. There are a few new nodular densities seen in the right middle lobe and the lingula. For instance, there is a 1 cm nodule on image 73 of series 5 in the lingula that was not present previously. Most likely, these are inflammatory nodules. None the less, CT followup should be considered. There has been overall improvement of mediastinal lymphadenopathy that was seen on the previous study. For reference, there is a small lymph node in the subcarinal region on image 51 of series 4 that measures up to 1 cm in the greatest dimension (1.5 cm previously). Limited views of the upper abdomen reveal diffuse hepatic steatosis. There are a few shotty celiac lymph nodes that are essentially stable. IMPRESSION: 1. Mixed parenchymal lung changes as described with interval improvement in the upper lobes but worsening in the right middle lobe and left lower lobe. 2. Development of a few new nodular densities in the right middle lobe and in the lingula. Please see above discussion. 3. Interval increase in size of the pleural effusion at the left lung base seen on the previous study, which is now partially loculated. 4. Interval development of a tiny right effusion. 5. Interval overall improvement of mediastinal lymphadenopathy. 6. Hepatic steatosis.
[2017-03-21] MEDS: ROCEPHIN 1 GM/NS 1 GM/50 ML IVPB IV SCH (14:58)
[2017-03-21] MEDS ORDERED: VANCOMYCIN IV PER PHARMACY MISC SCH (15:30)
[2017-03-21] MEDS: ZOSYN 3.375 GM/NS 3.375 GM/50 ML IVPB IV SCH ×2 (16:35→23:00)
[2017-03-21] MEDS ORDERED: VANCOMYCIN 2 GM in NS 500 ML IV ONE (18:00)
[2017-03-22] MEDS: PEPCID IV SCH ×2 (01:15→11:59)
[2017-03-22] MEDS: LOVENOX SUBQ SCH (01:15)
[2017-03-22] MEDS: DUONEB (A & A) INH SCH ×6 (03:47→23:13)
[2017-03-22] MEDS: ZOSYN 3.375 GM/NS 3.375 GM/50 ML IVPB IV SCH ×4 (04:11→21:34)
[2017-03-22] MEDS: VANCOMYCIN 1,700 MG in NS 250 ML IV SCH ×2 (05:33→17:55)
[2017-03-22 07:23] LABS: MANUAL DIFF NEEDED? NO
[2017-03-22 07:38] LABS: BASO% 0.2 % (0.0-0.8); EOS# 0.01 X1000 (0.0-0.7); EOS% 0.2 % (0.0-10.0); HEMATOCRIT 32.6 % (42.0-52.0); HEMOGLOBIN 10.8 g/dL (14.0-18.0); LYMPH# 1.42 X1000 (1.2-3.4); LYMPH% 33.4 % (20.5-51.1); MCH 33.4 PG (27-31); MCHC 33.1 g/dL (33-37); MCV 100.9 FL (81-99); MONO# 0.56 X1000 (0.11-0.59); MONO% 13.2 % (1.7-9.3); MPV 10.6 FL (7.4-10.4); PLT 99 X1000 (130-400); RBC 3.23 XMIL (4.7-6.1)
[2017-03-22 08:00] LABS: AGAP 10; BUN 9 mg/dL (8-22); CHLORIDE 102 mmol/L (98-107); COSMO 274; POTASSIUM 3.1 mmol/L (3.5-5.1); SODIUM 138 mmol/L (136-145); TCO2 26 mmol/L (25-35)
[2017-03-22] MEDS: MORPHINE IV PRN ×3 (08:22→17:55)
[2017-03-22] MEDS: NEUTRA-PHOS PO SCH ×4 (08:24→21:34)
[2017-03-22] MEDS: PREDNISONE PO SCH (08:25)
[2017-03-22] MEDS: THIAMINE IM SCH (08:25)
[2017-03-22] MEDS: PAXIL PO SCH (08:25)
[2017-03-22] MEDS: FOLIC ACID PO SCH (08:25)
[2017-03-22] MEDS ORDERED: KLOR-CON PO ONE (08:26)
--- NOTE | 2017-03-22 16:36 | PROGRESS NOTE ---
DATE: 03/22/2017 SUBJECTIVE: Today Mr. Mueller was referred to be doing a little better. He continues to have some shortness of breath. OBJECTIVE: Vital signs: Blood pressure is 139/89, pulse of 97, respirations 20, temperature 98.3 degrees. General Examination: Mr. Mueller is a 56-year-old male. He was in bed. Mild respiratory distress. HEENT: Mucosa is pink and moist. Anicteric. Acyanotic. Neck: Supple. Chest: Air entry is bilaterally reduced. There is diffuse bilateral end-expiratory wheezes and bibasilar crepitations. Cardiovascular: Regular rate and rhythm. No murmurs, no rubs, no gallops. Abdomen: Soft, nontender. There is an old midline surgical scar. Extremities: No pedal edema. ENERGY CONSERVATION REPRESENTATIVE: Patient is alert, oriented x4. There is mild tenderness to the palpation of the lateral aspect of the chest wall, left aspect. Abdominal examination: The abdomen feels slightly distended. LABORATORY DATA: WBC is 4.225, hemoglobin is 10.8, platelet count of 99,000, that is slightly improved. Chemistry is reviewed. Sodium is 138, potassium is 3.1, chloride is 102. ASSESSMENT: 1. Multifocal pneumonia, suspicious for aspiration. 2. Loculated left pleural effusion, likely due to pneumonia. We will consult IR for drainage of this and for fluid analysis. Will also consult pulmonary medicine to evaluate the patient. 3. Chronic alcoholic and tobacco abuse. Patient has been counseled. 4. Multiple falls at home, likely due to ethanol abuse. 5. Vitamin D deficiency. 6. Macrocytosis with normal B12 and folate level. I think visit some due to alcohol abuse. 7. Transaminitis due to alcohol induced steatohepatitis. 8. Hyponatremia due to syndrome of inappropriate antidiuretic hormone secretion, improved. 9. Hypocalcemia and hypophosphatemia, secondary to micro-nutrient deficiencies from alcohol abuse. We will continue to replace. So, today Mr. Mueller is doing relatively stable. We did discuss the possibility for him to go to IR for drainage of the left loculated pleural effusion, but he said he is going to be thinking about it and let us know. We will also consult the Pulmonary Medicine to evaluate him. In terms of his constipation, we will treat this more symptomatically. cc: Avtar Caceres MD
--- NOTE | 2017-03-22 18:10 | CONSULTATION ---
DATE OF CONSULTATION: 03/22/2017 REQUESTING PHYSICIAN: Dr. Boswell. Thank you very much for asking me to see this very unfortunate, 56-year-old male, white. I am pleased to assist in his care. DIAGNOSES: 1. Chronic obstructive pulmonary disease. 2. Left lower lobe pneumonia with some bronchiectasis. 3. History of ethanol abuse. 4. History of likely aspiration. RECOMMENDATIONS: I agree with the broad-spectrum antibiotics, inhaled beta agonist, supplemental oxygen. Medication compliance as well as pulmonary followup was discussed with him. We will follow with chest radiographs and work of breathing and labs. Will adjust his therapy as needed. HISTORY: This very pleasant, 56-year-old male, white, with a long-standing history COPD, alcoholism. He was recently in [facility]. He subsequently presented back to our emergency room yesterday with the onset of wheezing, cough, congestion, and some exertional dyspnea. He has a yellowish productive cough and he was found on CAT scan to have a right lower lobe pneumonia. I am consulted to assist in his care. REVIEW OF SYSTEMS: Except for the features mentioned above are positive for some weakness, weight loss, and some anorexia. No ENT symptoms of odynophagia, dysphagia, epistaxis, painful swallowing. No eye symptoms of blindness, blurring, or diplopia. No other cardiac or pulmonary symptoms, other than as mentioned. No nausea, vomiting, constipation, diarrhea. No hematuria, polyuria, nocturia, dysuria. No joint or muscle pain, stiffness, swelling. No skin rashes, itching, bruises. No seizures, loss of consciousness, or paralysis except for the features mentioned above. All other symptoms on the review of systems are negative. SOCIAL HISTORY: He is a smoker of approximately a 60 pack year history. Continues to smoke 1-2 packs of cigarettes a day. He also drinks daily. He is disabled and lives with friends. FAMILY HISTORY: Positive for ischemic heart disease in his father. Hypertension in his father. PAST MEDICAL HISTORY: Positive for COPD, hypertension, alcohol abuse. PHYSICAL EXAMINATION: Vital signs: This kind, young man shows a blood pressure 142/76 with a pulse of 86, respirations 18, SaO2 is 98%. HEENT exam: Reveals no thyromegaly or adenopathy. Pupils are equal and reactive. Extraocular muscles are intact. Neck: Supple. No bruits. No thyromegaly. No JVD. Chest: Reveals bilateral equal breath sounds with some prolongation of expiratory phase and forced expiratory wheezes. Cardiac exam: Reveals a regular rhythm without an appreciable murmur. There is crackles in both bases with some prolongation of the expiratory phase and some forced expiratory wheezes. Cardiac exam: Reveals a regular rhythm. Abdomen: Soft, nontender. No hepatosplenomegaly. Extremities: Reveal no evidence of cyanosis, clubbing. Skin: Warm and dry. Neurological: Grossly nonfocal. Awake. Moves all 4. DIAGNOSTIC STUDIES: The chest CT and radiographs were reviewed. They demonstrate infiltrate in the left lower lung. There also was likely some airway destruction, maybe some chronic bronchiectasis and also appears to be some infiltrate in the right middle lung. The sodium is 138, potassium 3.1, chloride 102, CO2 26, BUN 9, creatinine 0.5, glucose 84. The white count 4,200 with a hemoglobin 10.8, hematocrit 32.6, and platelets of 99,000.
[2017-03-22] MEDS: ATIVAN IV PRN (21:34)
[2017-03-23] MEDS: MORPHINE IV PRN ×4 (00:31→21:24)
[2017-03-23] MEDS: ATIVAN IV PRN ×2 (00:33→22:59)
[2017-03-23] MEDS: PEPCID IV SCH ×2 (00:33→13:31)
[2017-03-23] MEDS: LOVENOX SUBQ SCH (00:56)
[2017-03-23] MEDS: DUONEB (A & A) INH SCH ×6 (03:53→23:10)
[2017-03-23] MEDS: ZOSYN 3.375 GM/NS 3.375 GM/50 ML IVPB IV SCH ×4 (03:56→21:24)
[2017-03-23] MEDS: VANCOMYCIN 1,700 MG in NS 250 ML IV SCH ×2 (05:08→18:54)
[2017-03-23 07:02] LABS: MANUAL DIFF NEEDED? NO
[2017-03-23 07:19] LABS: BASO% 0.2 % (0.0-0.8); EOS# 0.07 X1000 (0.0-0.7); EOS% 1.3 % (0.0-10.0); HEMATOCRIT 33.5 % (42.0-52.0); LYMPH% 40.4 % (20.5-51.1); MCHC 32.8 g/dL (33-37); MCV 100.6 FL (81-99); MONO# 0.76 X1000 (0.11-0.59); MPV 9.8 FL (7.4-10.4); NEUT% 44.1 % (42.2-75.2); PLT 97 X1000 (130-400); RBC 3.33 XMIL (4.7-6.1)
[2017-03-23 07:21] LABS: INR 1.21; PROTIME 12.9 Seconds (9.2-11.7); PTT 26.8 Seconds (22.0-36.0)
[2017-03-23 07:30] LABS: AGAP 11; BUN 7 mg/dL (8-22); CALCIUM 7.9 mg/dL (8.8-10.2); CHLORIDE 97 mmol/L (98-107); COSMO 268; POTASSIUM 3.1 mmol/L (3.5-5.1); SODIUM 135 mmol/L (136-145); TCO2 27 mmol/L (25-35)
[2017-03-23] MEDS: THIAMINE IM SCH (08:36)
[2017-03-23] MEDS: PREDNISONE PO SCH (08:36)
[2017-03-23] MEDS: FOLIC ACID PO SCH (08:37)
[2017-03-23] MEDS: NEUTRA-PHOS PO SCH ×4 (08:37→21:32)
[2017-03-23] MEDS: PAXIL PO SCH (08:37)
[2017-03-23] MEDS ORDERED: KLOR-CON PO ONE (08:51)
--- NOTE | 2017-03-23 13:23 | Diag Imaging Result Document ---
PROCEDURE NAME: THORACENTESIS W/IMAGE GUIDANCE - 03/23/2017 ULTRASOUND GUIDED LEFT THORACENTESIS: COMPARISON: Chest CT 03/21/2017. FINDINGS: There is a small left pleural effusion. Overlying skin was prepped and draped in sterile fashion. Anesthesia was achieved with injection of 5 mL of 1% lidocaine. Using a fine needle, 10 mL of effusion fluid was aspirated for laboratory analysis. IMPRESSION: 1. Successful and uncomplicated ultrasound-guided paracentesis. 2. It should be noted that there is a right-sided slightly displaced rib fracture visible on the CT from 03/21/2017. This is in addition to the numerous chronic rib deformities. This is the 8th rib. This may be contributing to the effusion.
[2017-03-23 14:48] LABS: SPECIMEN PLEURAL FLUID
[2017-03-23 15:03] LABS: TOTAL PROT BODY FLUID 3.7 g/dL
[2017-03-23 15:06] LABS: DIFF NEEDED? YES; WBC BF 406 /cumm
[2017-03-23 15:12] LABS: MONOS 63 %; POLYS 37 %
--- NOTE | 2017-03-23 21:20 | PROGRESS NOTE ---
DATE: 03/23/2017 SUBJECTIVE: Today Mr. Mueller referred to be doing a little better. Initially he said he did not want the thoracentesis to be done but it looks like he advised himself and got it done. OBJECTIVELY: Vitals: Blood pressure is 143/83, pulse of 89, respirations 20, temperature is 98.8 degrees. General: Mr. Mueller 56-year-old male. He was in bed. Did not seem to be in any distress. HEENT: Mucosa is pink and moist. Anicteric. Acyanotic. Neck: Supple. Chest: Air entry is slightly reduced bilaterally. There is some bilateral diffuse end-expiratory wheezes. Cardiovascular: Regular rate and rhythm. No murmurs, no rubs. No gallops. Abdomen: Soft. There is an old midline surgical scar. Extremities: No pedal edema. There is mild tenderness to palpation of the right lateral aspect of the chest wall bilaterally. 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 LABORATORY DATA: WBC is 5.44, hemoglobin is 11.0, platelet count of 97,000. Sodium is 135, potassium is 3.1, chloride 97, bicarb is 27. Pleural fluid shows pH of 8, WBC is 406, segmented is 37 and mononuclear is 63%. Glucose is 122, total protein is 3.7. ASSESSMENT: 1. Multifocal pneumonia suspicious for aspiration pneumonia. 2.Loculated left pleural effusion likely due to pneumonia. Patient is status post thoracentesis. Just about 10 mL was removed from interventional radiology, they said this looked serosanguineous and is probably due to the 8th rib fractures. 3. Acute 8th number right rib fracture. This is slightly displaced as per Dr. Gastelum note. We would therefore consult surgery to evaluate the patient. For now will continue with adequate incentive spirometer and adequate pain control. 4. Multiple old rib fractures likely due to history of falls at home. 5. Multiple falls which we think is likely due to ethanol abuse/intoxications. 6. Vitamin D deficiencies. 7. Macrocytosis with normal B12 and folate level likely due to alcohol induced. 8. Transaminitis due to alcohol-induced steatohepatitis noted. 9. Hyponatremia due to syndrome of inappropriate antidiuretic hormone secretion improved. 10. Hypocalcemia and hypophosphatemia secondary to micro nutrient deficiency from alcohol abuse. So Mr. Speegles is a 56-year-old male which I think has been binging a lot on alcohol and falls and have multiple rib fractures. He has multifocal pneumonia which we think is from aspirations. He had a diagnostic thoracentesis which the fluid is suspicious for exudative likely from the pneumonia versus the rib fractures. Patient will continue with the current antibiotics. We will consult surgery to evaluate for the rib fracture and give us some recommendations. I think by tomorrow we might be able to discharge the patient to continue with oral antibiotics. Specifically I stressed the need for alcohol consumption cessation as well as tobacco cessation. We did consult palliative medicine to help the patient with goals of care. cc: Avtar Caceres MD MTDD
[2017-03-24] MEDS: LOVENOX SUBQ SCH (00:25)
[2017-03-24] MEDS: PEPCID IV SCH ×2 (00:26→12:18)
[2017-03-24] MEDS: DUONEB (A & A) INH SCH ×6 (03:00→22:52)
[2017-03-24] MEDS: ZOSYN 3.375 GM/NS 3.375 GM/50 ML IVPB IV SCH ×3 (05:06→16:27)
[2017-03-24] MEDS: MORPHINE IV PRN ×5 (05:07→20:45)
[2017-03-24] MEDS: VANCOMYCIN 1,700 MG in NS 250 ML IV SCH ×2 (06:11→17:54)
[2017-03-24 06:25] LABS: MANUAL DIFF NEEDED? NO
[2017-03-24 06:31] LABS: BASO% 0.2 % (0.0-0.8); EOS# 0.04 X1000 (0.0-0.7); EOS% 0.8 % (0.0-10.0); HEMATOCRIT 35.3 % (42.0-52.0); HEMOGLOBIN 11.5 g/dL (14.0-18.0); LYMPH# 1.81 X1000 (1.2-3.4); LYMPH% 34.3 % (20.5-51.1); MCH 32.7 PG (27-31); MCHC 32.6 g/dL (33-37); MCV 100.3 FL (81-99); MONO# 0.79 X1000 (0.11-0.59); MPV 10.3 FL (7.4-10.4); NEUT% 49.7 % (42.2-75.2); PLT 112 X1000 (130-400); RBC 3.52 XMIL (4.7-6.1)
[2017-03-24 06:52] LABS: AGAP 11; BUN 10 mg/dL (8-22); CALCIUM 8.5 mg/dL (8.8-10.2); CHLORIDE 98 mmol/L (98-107); COSMO 272; POTASSIUM 3.4 mmol/L (3.5-5.1); SODIUM 136 mmol/L (136-145); TCO2 27 mmol/L (25-35)
--- NOTE | 2017-03-24 07:32 | Diag Imaging Result Document ---
PROCEDURE NAME: CHEST-PORTABLE - 03/24/2017 SINGLE FRONTAL RADIOGRAPH OF THE CHEST: COMPARISON: 03/21/2017. FINDINGS: The mild infiltrate versus atelectasis at the right lung base appears to have resolved. There appears to have been some improvement in the small left pleural fluid collection as there was an interval thoracentesis. There is persistent loculated fluid at the periphery of the left lung base. IMPRESSION: Essential resolution of atelectasis and/or infiltrate at the right lung base and improvement in the amount of pleural fluid status post left thoracentesis.
[2017-03-24] MEDS: FOLIC ACID PO SCH (09:21)
[2017-03-24] MEDS: THIAMINE IM SCH (09:21)
[2017-03-24] MEDS: PAXIL PO SCH (09:21)
[2017-03-24] MEDS: PREDNISONE PO SCH (09:21)
[2017-03-24] MEDS: NEUTRA-PHOS PO SCH ×4 (09:24→20:45)
--- NOTE | 2017-03-24 13:39 | CONSULTATION ---
DATE OF CONSULTATION: 03/24/2017 CHIEF COMPLAINT: Broken ribs on the left. HISTORY: 56-year-old gentleman with long-standing COPD, chronic alcoholism who apparently fell recently striking his ribs. Developed a pleural effusion and some blood. This was drained yesterday by thoracentesis. He does have some displaced rib fractures on the left. There is no flail segment noted. The pH of the fluid was 8. MEDICATIONS: Include Paxil, folic acid, ProAir, and an inhaler. ALLERGIES: He has no known drug allergies. He has had previous chest tubes before. OTHER MEDICAL PROBLEMS: Include tobacco abuse, alcohol abuse, hypertension. PAST SURGICAL HISTORY: Previous surgery includes knee surgery bilaterally. FAMILY HISTORY: Pertinent for heart disease, diabetes and cancer. REVIEW OF SYSTEMS: As noted above. EXAMINATION: Afebrile. Heart rate 81, respiratory rate 16, blood pressure 143/92. No cervical adenopathy. He has prolonged expiatory wheezes bilaterally. He has a barrel chest. He has ecchymosis on his left posterior lateral chest wall. He is tender to palpation on the left. No flail segment is noted.Abdomen: Somewhat distended but nontender. He has an upper midline incision. Extremities: Femoral pulses are present. No peripheral edema. He is awake and alert. A pH of his pleural fluid was 8, 406 white blood cells per high-powered field. ASSESSMENT: This gentleman has some fractured ribs that should heal on their own. This should not require any operative intervention. The fluid that was drained was not consistent with an empyema. I simply believe he should be given pain relief for his fracture rib so that he will ventilate adequately and be able to cough adequately. No other intervention is recommended. cc: Minor Gonzales MD
--- NOTE | 2017-03-24 15:50 | PALLIATIVE CARE CONSULTATION ---
DATE: 03/24/2017 REQUESTING PHYSICIAN: Dr. Caceres. REASON FOR CONSULTATION: Goals of care. HISTORY OF PRESENT ILLNESS: This is a 56-year-old, male with a past medical history of COPD, alcoholism, hypertension, and nicotine dependence. He was most recently admitted on 03/19/2017 after presenting to the ED with complaints of progressive shortness of breath, cough and fever. He also complained of left-sided chest pain which occurred after a fall 2 days prior to his ED visit. Currently Mr. Mueller is sitting up in the hospital bed. He does not have any acute complaints at this time. There are no family present. The palliative care team has been consulted to assist with goals of care. REVIEW OF SYSTEMS: Twelve point review of systems has been conducted and otherwise negative except those mentioned in the HPI. PAST MEDICAL HISTORY: 1. COPD. 2. Alcoholism. 3. Hypertension. 4. Nicotine dependence. PAST SURGICAL HISTORY: Bilateral knee surgery. FAMILY HISTORY: None pertinent. SOCIAL HISTORY: He lives locally with friends. He describes everyday use of nicotine and alcohol. Drug use has been denied. PHYSICAL EXAMINATION: General: This is a 56-year-old, male who does not appear to be in any acute distress. HEENT: Atraumatic, normocephalic. Neck: Trachea is midline. Cardiovascular: Regular rate and rhythm. Pulmonary: Lung sounds are diminished. Respirations are nonlabored. Abdomen: Soft. Bowel sounds are active. Extremities: Pulses are palpable. Neurologic: Awake, alert, oriented to person, place and time. IMPRESSION: This is a 56-year-old, male with a past medical history as listed above in the HPI. I met with Mr. Mueller to determine his goals of care. We discussed advanced directive and power of deputy county attorney. He does not have either document but requests more information regarding those documents. As previously mentioned, he does not have any acute complaints at this time. We did discuss smoking cessation and the benefits of that. We also discussed his alcohol use. He states that he is interested in quitting smoking and drinking. It appears at this time that Mr. Mueller' palliative performance scale is 70%. Mr. Mueller is a full code. The palliative care team will continue to follow. Thank you for this consultation. Dictated by WADE Brown for Gianni Guajardo MD cc: WADE Brown MD
--- NOTE | 2017-03-24 17:08 | PROGRESS NOTE ---
DATE: 03/24/2017 HISTORY OF PRESENT ILLNESS: This is a 56-year-old with long-standing history of COPD, chronic alcoholism, hypertension, discharged from our facility about a month ago with pneumonia, and post treatment. He came back complaining of progressive shortness of breath and cough and fever for 2 days' duration, left-sided chest discomfort pleuritic in nature. He apparently had a fall 2 days ago and landed on left side of his chest as well. The pain is for the most part pleuritic. It did not sound like any anginal equivalent. He had been coughing up some whitish sputum with streaks of blood and some yellow sputum by his description. PAST MEDICAL HISTORY: As above, COPD, chronic alcoholism, hypertension. Recently discharged from our facility. A chest x-ray on 03/24/2017, essential resolution of atelectasis and infiltrates in the right lung base, improvement in the amount of pleural fluid status post left thoracentesis. PHYSICAL EXAMINATION: Vital signs: Temperature 98.5 degrees, pulse 98, respiration is 14, blood pressure 140/94. HEENT: Pupils are equal, round. Lungs: Clear in all lung luo. Cardiovascular: Regular rhythm and rate without murmur or S3. Abdomen: Soft. Skin: Warm and dry. Urine output: Over a liter. DIAGNOSTIC DATA: White count 5280, hematocrit 35, platelet count 112,000. Sodium 136, potassium 3.4, chloride 98, BUN 10, creatinine 0.7, calcium 8.5. Liver functions when he presented; AST was 55, ALT of 33. ASSESSMENT AND PLAN: 1. Multifocal pneumonia suspicious for aspiration pneumonia. 2. Loculated left pleural effusion likely parapneumonic. Patient status post thoracentesis, just about 10 mL was removed with Interventional Radiology. It looked serosanguineous and probably due to his 8th rib fracture. 3. Acute 8th rib fracture, slightly displaced per Dr. Gastelum. Continue incentive spirometry. 4. Multiple rib fractures likely due to falls at home. 5. Multiple falls, I think likely secondary to ethanol abuse and intoxications. 6. Vitamin D deficiency. 7. Macrocytosis, normal B12 and folate, likely due to alcohol-induced. 8. Transaminitis which is mild. He probably has alcohol induced steatohepatitis which is mild. 9. Hyponatremia, syndrome of inappropriate anti-diuretic hormone which is improved. 10. Hypocalcemia, hypophosphatemia secondary to poor nutrition, poor p.o. intake. The patient seems to be clinically doing better. He has had multiple falls which we think are related to alcohol, multiple rib fractures. 11. He has a multifocal pneumonia which we think is probably from aspiration and diagnostic thoracentesis which the fluid was suspicious for exudate likely from pneumonia versus rib fractures. Continue present therapy. 12. Reviewed his orders. I do not see any change at this point. He is on piperacillin 3.375 mg IV q.6h, vancomycin 1700 mg IV q.12h, thiamine 200 mg IM daily, prednisone 40 mg a day, Paxil 40 mg a day, folic acid 1 mg daily, Pepcid 20 mg IV q.12h. He got his pneumococcal vaccination. He is on breathing treatments. cc: Chip Ramesh MD
[2017-03-25] MEDS: MORPHINE IV PRN ×6 (00:56→22:38)
[2017-03-25] MEDS: PEPCID IV SCH ×3 (00:56→22:43)
[2017-03-25] MEDS: ZOSYN 3.375 GM/NS 3.375 GM/50 ML IVPB IV SCH ×5 (00:56→22:39)
[2017-03-25] MEDS: DUONEB (A & A) INH SCH ×6 (03:26→23:02)
[2017-03-25] MEDS: VANCOMYCIN 1,700 MG in NS 250 ML IV SCH ×2 (05:36→19:08)
[2017-03-25] MEDS: LOVENOX SUBQ SCH (09:49)
[2017-03-25] MEDS: FOLIC ACID PO SCH (09:49)
[2017-03-25] MEDS: THIAMINE IM SCH (09:49)
[2017-03-25] MEDS: NEUTRA-PHOS PO SCH ×4 (09:49→20:06)
[2017-03-25] MEDS: PAXIL PO SCH (09:49)
--- NOTE | 2017-03-25 16:31 | PROGRESS NOTE ---
DATE: 03/25/2017 SUBJECTIVE: He states he is breathing better. Still not where he thinks he needs to be, but breathing better, more comfortable. He has remained afebrile. OBJECTIVE: Vital signs: Temperature 98.2 degrees, pulse 112, respirations 22, blood pressure 130/84. HEENT: Pupils are equal, round. Lungs: Clear in all lung luo. Cardiovascular: Regular rhythm and rate without murmur or S3. Abdomen: Soft. Skin: Warm and dry. : Good urine output. LAB: White count 5,280, hematocrit 35, platelet count 112,000. Chemistry: Sodium 136, potassium 3.4, chloride 98, bicarb 27, BUN 10, creatinine 1.7, blood sugar 118. ASSESSMENT AND PLAN: 1. Multifocal pneumonia suspicious for aspiration pneumonia. Continue present antibiotics. 2. Loculated left pleural effusion, likely parapneumonic. Appears to be improving. Status post thoracentesis, about 10 mL was removed with interventional radiology. 3. Acute 8th rib fracture, slightly displaced. Aware. 4. Multiple rib fractures likely due to falls at home. 5. Multiple falls secondary to ethanol abuse intoxication. 6. Vitamin D deficiency. 7. Macrocytosis. Normal B12 and folate. Likely due to alcohol induced. 8. Transaminitis which is mild. Probably has alcohol induced steatohepatitis. 9. Hyponatremia. Syndrome of inappropriate ADH. Sodium is improved. 10. Hypocalcemia, hypophosphatemia secondary to poor nutrition. 11. Nutrition. Good p.o. intake, which has improved. Zosyn 3.375 g IV q.6, vancomycin 1700 mg IV q.12 hours, folic acid 1 mg a day, Pepcid 20 mg IV q.12. Continue present treatment. cc: Chip Ramesh MD
[2017-03-25] MEDS ORDERED: SODIUM CHLORIDE 0.9% 0 ML ONE (20:20)
[2017-03-26] MEDS: PEPCID IV SCH ×2 (00:27→13:25)
[2017-03-26] MEDS: DUONEB (A & A) INH SCH ×6 (04:10→22:59)
[2017-03-26] MEDS: ZOSYN 3.375 GM/NS 3.375 GM/50 ML IVPB IV SCH ×4 (04:41→21:56)
[2017-03-26] MEDS: MORPHINE IV PRN ×5 (04:41→22:18)
[2017-03-26 07:06] LABS: BASO% 0.3 % (0.0-0.8); EOS# 0.17 X1000 (0.0-0.7); EOS% 2.9 % (0.0-10.0); HEMATOCRIT 34.2 % (42.0-52.0); HEMOGLOBIN 11.3 g/dL (14.0-18.0); IMM GRAN# 0.02 X1000 (0.0-0.04); IMM GRAN% 0.3 % (0.0-0.5); LYMPH# 1.44 X1000 (1.2-3.4); LYMPH% 24.7 % (20.5-51.1); MANUAL DIFF NEEDED? YES; MCH 33.2 PG (27-31); MCV 100.6 FL (81-99); MONO# 1.31 X1000 (0.11-0.59); MONO% 22.4 % (1.7-9.3); MPV 9.8 FL (7.4-10.4); NEUT% 49.4 % (42.2-75.2); PLT 133 X1000 (130-400)
[2017-03-26 07:19] LABS: AGAP 11; ALKALINE PHOSPHATASE 131 U/L (32-122); BUN 13 mg/dL (8-22); CALCIUM 8.4 mg/dL (8.8-10.2); CHLORIDE 96 mmol/L (98-107); COSMO 268; GOT 60 U/L (10-34); GPT 50 U/L (10-44); MAGNESIUM 1.5 mg/dL (1.5-2.7); POTASSIUM 3.4 mmol/L (3.5-5.1); SODIUM 134 mmol/L (136-145); TCO2 27 mmol/L (25-35); TOTAL PROTEIN 6.8 g/dL (6.3-8.3)
[2017-03-26 07:24] LABS: LYMPHS 18 % (21-51); MONO 16 % (1-9)
--- NOTE | 2017-03-26 07:38 | Diag Imaging Result Document ---
PROCEDURE NAME: CHEST-2 VIEWS - 03/26/2017 CHEST X-RAY, 2 VIEWS: COMPARISON: 03/24/2017. FINDINGS: There is slight improvement in the effusion/atelectasis at the lateral left lung base. No new abnormalities. The right lung remains clear. IMPRESSION: Improvement from prior. [facility]
[2017-03-26] MEDS: PAXIL PO SCH (09:08)
[2017-03-26] MEDS: VANCOMYCIN 1,700 MG in NS 250 ML IV SCH (09:08)
[2017-03-26] MEDS: THIAMINE IM SCH (09:09)
[2017-03-26] MEDS: FOLIC ACID PO SCH (09:09)
[2017-03-26] MEDS: NEUTRA-PHOS PO SCH ×4 (09:13→21:56)
[2017-03-26] MEDS: LOVENOX SUBQ SCH (09:13)
--- NOTE | 2017-03-26 12:17 | PROGRESS NOTE ---
DATE: 03/26/2017 SUBJECTIVE: Mr. Mueller is feeling better. Breathing is better. He is very sore on the left side of his anterolateral ribs. He is eating pretty good. OBJECTIVE: Vital signs: Afebrile, temp 97.8 degrees, pulse 80, respirations 16, blood pressure 130/86. HEENT: Pupils are equal, round. Lungs: Clear in all lung luo. Cardiovascular: Regular rhythm and rate without murmur or S3. Abdomen: Soft. Skin: Warm and dry. LAB: Reviewed from today. White count 5,840, hematocrit 34, platelet count 133,000. Sodium 134, potassium 3.4, chloride 96, BUN 13, creatinine 0.7. Chest x-ray from this morning, there is slight improvement in effusion, atelectasis lateral left lung base. No new abnormalities. Right lung remains clear. Clinically improved. ASSESSMENT AND PLAN: 1. Multifocal pneumonia, suspicious for aspiration pneumonia. Continue present antibiotics. 2. Loculated left pleural effusion, likely parapneumonic. This is improving clinically. 3. Acute 8th rib fracture, slightly displaced. Still in a lot of pain. Multiple rib fractures due to falls. 4. Multiple falls due to the alcohol intoxication. 5. Macrocytosis. Normal B12 and folate. Likely due to alcohol. 6. Transaminitis. Suspect steatohepatitis secondary to alcohol. 7. History of hyponatremia which has resolved. 8. Hypocalcemia and hypophosphatemia secondary to poor nutrition. He is clinically improving. REVIEW OF HIS ORDERS: I do not see any changes. He is on vancomycin and Zosyn. He is on albuterol treatments. We are giving him Lovenox 40 mg subcutaneously q.24 hours, Pepcid 20 mg IV q.12 hours, Ativan as needed, folic acid 1 mg p.o. daily. cc: Chip Ramesh MD
[2017-03-27] MEDS: MORPHINE IV PRN ×2 (03:49→09:07)
[2017-03-27] MEDS: PEPCID IV SCH (03:50)
[2017-03-27] MEDS: ZOSYN 3.375 GM/NS 3.375 GM/50 ML IVPB IV SCH ×4 (03:50→23:29)
[2017-03-27] MEDS: DUONEB (A & A) INH SCH ×6 (04:11→23:04)
[2017-03-27 07:25] LABS: HEMOGLOBIN 10.8 g/dL (14.0-18.0); MCH 33.5 PG (27-31); MCHC 32.7 g/dL (33-37); MCV 102.5 FL (81-99); MPV 9.9 FL (7.4-10.4); RBC 3.22 XMIL (4.7-6.1)
[2017-03-27 07:47] LABS: AGAP 9; ALBUMIN 2.8 g/dL (3.5-5.0); ALKALINE PHOSPHATASE 136 U/L (32-122); BUN 9 mg/dL (8-22); CALCIUM 8.4 mg/dL (8.8-10.2); CHLORIDE 99 mmol/L (98-107); COSMO 275; GOT 45 U/L (10-34); GPT 42 U/L (10-44); MAGNESIUM 1.7 mg/dL (1.5-2.7); POTASSIUM 3.2 mmol/L (3.5-5.1); SODIUM 136 mmol/L (136-145); TCO2 28 mmol/L (25-35); TOTAL BILIRUBIN 0.92 mg/dL (0.20-1.00); TOTAL PROTEIN 6.2 g/dL (6.3-8.3)
[2017-03-27] MEDS: NEUTRA-PHOS PO SCH ×2 (09:11→13:41)
[2017-03-27] MEDS: FOLIC ACID PO SCH (09:11)
[2017-03-27] MEDS: LOVENOX SUBQ SCH (09:11)
[2017-03-27] MEDS: THIAMINE IM SCH (09:12)
[2017-03-27] MEDS: PAXIL PO SCH (09:14)
[2017-03-27] MEDS: VANCOMYCIN 1,700 MG in NS 250 ML IV SCH (13:41)
[2017-03-27] MEDS: NORCO-5 PO PRN ×3 (13:47→22:51)
[2017-03-27] MEDS ORDERED: KLOR-CON PO ONE (16:54)
--- NOTE | 2017-03-27 17:20 | PROGRESS NOTE ---
DATE: 03/27/2017 SUBJECTIVE: The patient is resting comfortably in bed. He is off of supplemental oxygen. He states that he is feeling a lot better but still feels weak. OBJECTIVE: Vital Signs: Temperature 98 degrees, blood pressure 122/82, heart rate 83, respirations 18, O2 saturations 96% on room air. General: This is an elderly male lying in bed in no acute distress. Head: Normocephalic, atraumatic. Heart: S1, S2. Normal. Regular rate and rhythm. Lungs: Clear to auscultation bilaterally. Abdomen: Positive bowel sounds. Soft, nontender, nondistended. Extremities: No edema. No cyanosis. No calf tenderness. Neurologic: The patient is alert and oriented x3. LABS: White blood cell count 5.1, hemoglobin 10, hematocrit 33, platelets 152,000. Sodium 136, potassium 3.2, chloride 99, CO2 28, BUN 9, creatinine 0.6, glucose 175. ASSESSMENT AND PLAN: 1. Bilateral lobe pneumonia. This appears to be improving slowly. Continue on vancomycin and Zosyn as ordered. 2. Mediastinal lymphadenopathy with pulmonary nodule. The patient will be scheduled to follow up with Dr. Morgan as outpatient for repeat imaging once he has completed the therapy for pneumonia. 3. Loculated left pleural effusion. Slowly improving. 4. Right rib fracture. Aware. 5. Vitamin D deficiency. Continue vitamin D replacement. 6. Alcohol induced steatohepatitis. Aware. 7. Alcohol abuse. The patient has been counseled about cessation. 8. Hypertension. Controlled. 9. Situational depression. Continue on Paxil. 10. Deep vein thrombosis prophylaxis. Continue on Lovenox. 11. Continue with physical therapy. Will consult case management for assistance with discharge planning. cc: Rosmery Shea MD
[2017-03-28] MEDS: DUONEB (A & A) INH SCH ×6 (04:07→22:44)
[2017-03-28] MEDS: ZOSYN 3.375 GM/NS 3.375 GM/50 ML IVPB IV SCH ×4 (04:42→22:52)
[2017-03-28] MEDS: VANCOMYCIN 1,700 MG in NS 250 ML IV SCH ×2 (05:30→23:35)
[2017-03-28] MEDS: PRILOSEC PO SCH (07:00)
[2017-03-28 07:53] LABS: AGAP 10; BUN 7 mg/dL (8-22); CALCIUM 8.5 mg/dL (8.8-10.2); CHLORIDE 101 mmol/L (98-107); COSMO 270; MAGNESIUM 1.7 mg/dL (1.5-2.7); SODIUM 136 mmol/L (136-145); TCO2 25 mmol/L (25-35)
[2017-03-28 08:34] LABS: HEMATOCRIT 34.6 % (42.0-52.0); HEMOGLOBIN 11.4 g/dL (14.0-18.0); MCH 33.1 PG (27-31); MCHC 32.9 g/dL (33-37); MCV 100.6 FL (81-99); MPV 10.2 FL (7.4-10.4); RBC 3.44 XMIL (4.7-6.1)
[2017-03-28] MEDS: PAXIL PO SCH (09:38)
[2017-03-28] MEDS: FOLIC ACID PO SCH (09:38)
[2017-03-28] MEDS: LOVENOX SUBQ SCH (09:38)
[2017-03-28] MEDS: THIAMINE IM SCH (09:53)
[2017-03-28] MEDS: NORCO-5 PO PRN ×3 (09:58→19:58)
--- NOTE | 2017-03-28 14:52 | PROGRESS NOTE ---
DATE: 03/28/2017 SUBJECTIVE: The patient is resting comfortably in bed. He has no complaints at this time. OBJECTIVE: Vital Signs: Temperature 98.1, blood pressure 145/86, heart rate 77, respiration 18, O2 saturations 98% on 2 L nasal cannula. General: This is an elderly male, lying in bed, in no acute distress. Head: Normocephalic, atraumatic. Heart: S1, S2. Normal. Regular rate and rhythm. Lungs: Clear to auscultation bilaterally. Abdomen: Positive bowel sounds. Soft, nontender, nondistended. Extremities: No edema. No cyanosis. No calf tenderness. Neuro: The patient is alert and oriented x3. LABS: White blood cell count 5, hemoglobin 11, hematocrit 34, platelets 183,000. Sodium 136, potassium 4, chloride 101, CO2 25, BUN 7, creatinine 0.6, glucose 97. ASSESSMENT AND PLAN: 1. Bilateral lobe pneumonia. Continue on antibiotic and bronchodilator therapy. 2. Mediastinal lymphadenopathy with a pulmonary nodule. The patient will follow up with a repeat ERCP upon completion of antibiotic therapy. 3. Loculated left pleural effusion. Stable. 4. Right rib fracture. Aware. 5. Vitamin D deficiency. Continue on vitamin D replacement. 6. Alcohol abuse. The patient has been counseled about alcohol cessation. 7. Hypertension. Controlled. 8. Situational depression. Continue on Paxil. 9. Deep vein thrombosis prophylaxis. Continue on Lovenox. 10. Continue with physical therapy. 11. Disposition. The patient should be stable for discharge home on Thursday. The patient states that he is not interested in going to rehab or home health. cc: Rosmery Shea MD
[2017-03-29] MEDS: NORCO-5 PO PRN ×5 (00:07→22:16)
[2017-03-29] MEDS: DUONEB (A & A) INH SCH ×6 (03:41→23:24)
[2017-03-29] MEDS: ZOSYN 3.375 GM/NS 3.375 GM/50 ML IVPB IV SCH ×3 (04:12→16:23)
[2017-03-29] MEDS: PRILOSEC PO SCH (06:20)
[2017-03-29] MEDS: PAXIL PO SCH (09:39)
[2017-03-29] MEDS: LOVENOX SUBQ SCH ×2 (09:39→09:42)
[2017-03-29] MEDS: THIAMINE IM SCH ×2 (09:39→09:42)
[2017-03-29] MEDS: FOLIC ACID PO SCH (09:39)
[2017-03-29] MEDS: VANCOMYCIN 1,700 MG in NS 250 ML IV SCH (17:17)
[2017-03-30] MEDS: ZOSYN 3.375 GM/NS 3.375 GM/50 ML IVPB IV SCH ×3 (00:21→09:47)
[2017-03-30] MEDS: NORCO-5 PO PRN ×3 (02:28→10:24)
[2017-03-30] MEDS: DUONEB (A & A) INH SCH ×3 (03:44→11:42)
[2017-03-30 06:23] VITALS: BP 128/78
[2017-03-30] MEDS: PRILOSEC PO SCH (06:41)
--- NOTE | 2017-03-30 08:48 | Diag Imaging Result Document ---
PROCEDURE NAME: CHEST-2 VIEWS - 03/30/2017 CHEST X-RAY, 2 VIEWS: COMPARISON: 03/26/2017. FINDINGS: Stable small infiltrate or scarring at the left lung base. No new infiltrates. No pneumothorax or significant effusion. IMPRESSION: No change from prior.
[2017-03-30] MEDS: FOLIC ACID PO SCH (09:47)
[2017-03-30] MEDS: PAXIL PO SCH (09:47)
[2017-03-30] MEDS: LOVENOX SUBQ SCH (09:48)
[2017-03-30] MEDS: THIAMINE IM SCH (09:48)
[2017-03-30] MEDS: VANCOMYCIN 1,700 MG in NS 250 ML IV SCH (12:44)
--- NOTE | 2017-03-31 05:21 | DISCHARGE SUMMARY ---
ADMISSION DATE: 03/19/2017 DISCHARGE DATE: 03/30/2017 CONSULTATIONS: Dr. Dionicio Spears with pulmonology. PERTINENT PROCEDURES: 1. Chest CT showed mixed parenchymal lung changes with interval improvement in upper lobes but worsening in right middle lobe and left lower lobe. Development of new nodular densities in the right middle lobe and the lingula, and overall increase in size in the pleural effusion on the left they had seen on previous study which is now partially loculated. Interval development of tiny right effusion, interval overall improvement of mediastinal lymphadenopathy, hepatic steatosis. 2. Ultrasound-guided thoracentesis where 10 mL of effusion fluid was aspirated. They have also noted that there is a right-sided slightly displaced rib fracture visible on the CT from 03/21/2017 in addition to numerous chronic rib deformities on the 8th rib. This may be contributing to the effusion. DISCHARGE DIAGNOSES: 1. Bilateral lobe pneumonia. 2. Mediastinal lymphadenopathy with pulmonary nodule. 3. Loculated left pleural effusion, 4. Right rib fracture 5. Vitamin D deficiency. 6. Alcohol abuse. 7. Hypertension. 8. Situational depression 9. Physical deconditioning. HOSPITAL COURSE: Mr. Mueller is a 56-year-old male with a longstanding history of COPD, chronic alcoholism, and hypertension who was discharged from our facility a little over a month ago for pneumonia treatment. He came in on the day of admission complaining of progressive shortness of breath with cough and fever for 2 days. He also complained of left-sided chest pain which occurred after he fell 2 days prior to his admission and landed on the left side of his chest. The pain, for the most part, was pleuritic in nature with no anginal equivalent. He did report a whitish sputum with streaks of blood, recently turned yellow. Chest x-ray showed a small left effusion with bibasilar atelectasis and infiltrates. Patient was admitted and started on IV antibiotics. He did have a normal white count. He was continued on bronchodilators as well as aggressive pulmonary toilet. Smoking and alcohol cessation were reiterated. He was monitored closely for any alcohol withdrawal symptoms. A CT of the chest did reveal some interval improvement in the upper lobes but worsening in the right middle and lower left lobe. He did have a new nodular density in the right middle lobe and the lingula, increased size of a pleural effusion of the left lung base, interval development of a right tiny pleural effusion, and overall improvement of the mediastinal lymphadenopathy. The patient underwent an ultrasound-guided thoracentesis on the left where they removed 10 mL of fluid. It was noted on the right side, there was a slightly displaced rib fracture visible on the CT from 03/21/2017 in addition to numerous chronic rib deformities. This is on the 8th rib. It may be contributing to the effusion. Palliative care was also brought in to discuss goals of care with the patient. Dr. Gonzales with general surgery was also broken in, in reference to broken ribs on the left. He felt that these would not need any operative intervention and that the fluid drained was not consistent with an empyema, and that the patient should continue his aggressive pulmonary and adequate pain relief. The patient is appropriate for discharge today. He will need to follow up with outpatient images upon completion of antibiotic therapy with Cathy and he will continue his bronchodilator therapy at home. VITAL SIGNS: At the time of his discharge, temperature is 98 degrees, heart rate 78, respirations 18, blood pressure is 128/78, O2 is 96% on room air. DISCHARGE DIET: Regular. DISCHARGE MEDICATIONS: 1. ProAir 8.5 g inhaled p.r.n. 2. Augmentin 875/125 one each p.o. b.i.d. 3. Folic acid 1 mg p.o. daily. 4. [place] 5 one each p.o. q.4 hours p.r.n. 5. Paxil 20 mg p.o. daily. 6. Anoro Ellipta 62.5/25 mcg inhaler 1 puff inhaled RT daily. FOLLOWUP: The patient is being discharged back home. He will need to follow up with his primary care physician, WADE Manzano, in 7-10 days, as well as Dr. Morgan in 2 weeks. The patient will need to return for follow up images after his course of antibiotics with Dr. Morgan. Discharge time, 30 minutes. Dictated by WADE Tineo for Rosmery Shea MD cc: MD Farzana Lawson CRNP [facility]
== END 2017-03-30 13:43 | disposition home or self-care (01) ==
LOC: ED 20:41 → 3N 23:46 → SUATTDRO 23:46
PROVIDERS: ATTEND Internal Medicine